=== PATIENT | female | born 1940 | race Caucasian/White ===

== ENCOUNTER 2021-02-01 16:29 | Emergency (ER) | payer MEDICARE, BC, SELFPAY ==
--- NOTE | ~2021-02-01 | CT_ITS ---
EXAMINATION: CT brain wo con INDICATION: Head injury COMPARISON: None TECHNIQUE: Standard unenhanced head CT. The dose-length product (DLP) was 605.33 mGy-cm. The mA was a djusted according to patient size. Iterative reconstruction technique was employed. FINDINGS: There is left periorbital soft tissue swelling. There is no acute intraparenchymal hemorrha ge. No evidence of mass lesion. No evidence of acute infarction. There is mild periventricular and osman bcortical hypodensity probably related to small vessel ischemic disease. There is mild prominence of the sulci and ventricles related to cerebral atrophy. Intracranial calcified cerebral atherosclerosis is noted. There are no extra-axial collections. There is no mass effect or midline shift. Changes in the globes are likely from ocular lens surgery. There is mild mucosal thickening of the paranasal si nuses. IMPRESSION: 1. Left periorbital soft tissue hematoma without acute intracranial abnormality. 2. Age related findings. Reviewed, dictated and finalized at location A. IMPRESSION: 1. Left periorbital soft tissue hematoma without acute intracranial abnormality . 2. Age related findings.
--- NOTE | ~2021-02-01 | CT_ITS ---
EXAMINATION: 1. CT facial & cervical spine wo DATE: 02/01/2021 17:02 INDICATION: Fall with deformity and bruising at the left orbit and cheek bone. TECHNIQUE: 1. Computed tomography (CT) of the maxillofacial region and of the cervical spine were performed with out intravenous contrast. Sagittal and coronal reconstructions of both regions were obtained. Automat ed exposure control and iterative reconstruction technique were employed. The dose-length product was 327.84 mGy-cm. COMPARISON: Neck CT dated 09/29/2014 FINDINGS: Maxillofacial CT: Large left cerebral scalp hematoma. Globes appear intact with changes of bilateral intraocular lens r eplacement. No post septal inflammatory stranding. No maxillofacial fractures. Specifically the pineda of the orbits, paranasal sinuses, nasal bones, the zygomatic arches, mandible and pterygoid plates a re intact. Temporomandibular joints are normal alignment with mild osteoarthritis. Leftward bowing of the nasal septum which parallels the contours of the turbinates. Mild mucosal thickening in the bila teral ethmoid sinuses, left greater than right. Visualized mastoid air cells and middle ear cavities are clear. Intracranial calcified cerebral atherosclerosis is noted at the carotid siphons. Cervical spine CT: Alignment is normal. Vertebral body heights are normal. No fractures. Moderate disc height loss at C5 -C6, C6-C7, T2-T3 and C3-4. Mild disc height loss at C4-C5 and C7-T1. There are hemangiomas at the T2 and T3 vertebral bodies. Posterior disc osteophyte complex at C5-C6 resulting in mild central canal stenosis at this level. Bilateral multilevel moderate to severe cervical facet osteoarthritis and mil d to moderate upper and moderate to severe lower cervical uncovertebral osteoarthritis. This contribu earl to mild to moderate neural foraminal stenosis at multiple levels on both the left and right. Cerv ical soft tissues are unremarkable. Visualized airway and apices of the lungs are clear. IMPRESSION: 1. Left supraorbital scalp hematoma. No maxillofacial fractures. 2. Mild to moderate cervical spondylosis. No acute osseous abnormality. Reviewed, dictated and finalized at location A.
--- NOTE | ~2021-02-01 | XR_ITS ---
EXAMINATION: XR hand LT min 3V INDICATION: Left hand pain TECHNIQUE: Three views of the left hand are obtained. COMPARISON: 06/04/2013 FINDINGS: The bones are osteopenic which limits the sensitivity for fracture however none is seen. Th ere is severe osteoarthritis at the fifth proximal interphalangeal joint with interval worsening sinc e the prior examination. Mild to moderate osteoarthritis is seen at the remainder of the interphalang eal joints. The soft tissues are unremarkable. IMPRESSION: 1. Osteoarthritis without acute osseous abnormality identified, sensitivity limited by osteopenia. Reviewed, dictated and finalized at location A. IMPRESSION: 1. Osteoarthritis without acute osseous abnormality identified, sensitivity [place] ited by osteopenia.
[2021-02-01 16:31] VITALS: BP 164/60; PULSE 91; RESP 18; TEMP 36.2; O2SAT 98
--- NOTE | 2021-02-01 16:38 | PC.NURSE ---
Per EDP Jatin verbal order for CT head, neck, and facial bones.
--- NOTE | 2021-02-01 18:00 | ED.FALL ---
HPI - Fall General Chief Complaint: Fall Stated Complaint: fall, head injury Time Seen by Provider: 02/01/21 17:53 Source: patient and RN notes reviewed Mode of arrival: ambulatory Limitations: no limitations History of Present Illness HPI Narrative: Patient is 80-year-old female who tripped and fell today while ambulating described as a mechanical fall fell forward striking the face was assisted by bystanders and brought into the ER for evaluation she presents with contusion over the left eye and left cheek. Patient also notes some tenderness over the dorsal surface of the left hand. She denies any syncope loss of consciousness or other complaints presents nondistressed. Related Data Home Medications Medication Instructions Recorded Confirmed cetirizine 10 mg capsule 10 mg PO DAILY PRN 10/26/20 10/26/20 citalopram 40 mg tablet 20 mg PO DAILY 10/26/20 10/26/20 empagliflozin 25 mg tablet 25 mg PO DAILY 10/26/20 10/26/20 glimepiride 4 mg tablet 4 mg PO QAM 10/26/20 10/26/20 losartan 100 mg tablet 100 mg PO DAILY 10/26/20 10/26/20 metformin 500 mg tablet 500 mg PO BID 10/26/20 10/26/20 pravastatin 20 mg tablet 20 mg PO DAILY 10/26/20 10/26/20 Allergies Allergy/AdvReac Type Severity Reaction Status Date / Time No Known Allergies Allergy Unverified 10/21/17 05:00 Review of Systems Review of Systems: All systems reviewed & are unremarkable except as noted in HPI and below PMFSH Family History Family History (Updated 10/26/20 @ 13:59 by Paola Escobar) Father Heart disease Mother Hypertension Sibling Hypertension Acute myocardial infarction Other Depression Thyroid disorder Social History Social History Smoking status: Never smoker Alcohol intake: current Drinks per week: 1 Alcohol use details: occasional use Substance use: never Exam Narrative: GENERAL: Well-appearing, well-nourished, and in no acute distress. HEAD: Normocephalic, contusion above the left eye involving the brow as well as the left cheek. EYES: PERRLA and EOMI. ENT: Nares clear, no rhinorrhea or epistaxis. Mucous membranes moist. NECK: Supple. No adenopathy or masses. CHEST: Clear to auscultation. No respiratory distress. No wheezes rales or rhonchi HEART: Regular rate and rhythm. No murmur heard. EXTREMITIES: Normal range of motion. No edema. No midline cervical thoracic or lumbar tenderness. Tenderness over the left hand dorsal surface SKIN: Warm, dry, no rash. NEURO: No focal deficits. Alert and oriented x3. Cranial nerves II through XII grossly intact PSYCH: Normal mood and affect. Course Course Emergency Course: Patient evaluated negative imaging she was made aware of case findings treatment plan diagnosis she is felt appropriate for outpatient reevaluation given reasons to return Vital Signs Vital signs: Vital Signs Temperature 97.1 F L 02/01/21 16:31 Pulse Rate 91 02/01/21 16:31 Respiratory Rate 18 02/01/21 16:31 Blood Pressure 164/60 H 02/01/21 16:31 Pulse Oximetry 98 02/01/21 16:31 Temperature 97.1 F L 02/01/21 16:31 Pulse Rate 91 02/01/21 16:31 Respiratory Rate 18 02/01/21 16:31 Blood Pressure 164/60 H 02/01/21 16:31 Pulse Oximetry 98 02/01/21 16:31 MDM - Fall MDM Narrative Medical decision making narrative: Patient evaluated for injuries related to a ground-level fall she feels comfortable to go home her family will be they are waiting for her she was evaluated hemodynamically stable ABCs and vital signs intact provided with reasons to return Discharge Plan Discharge Clinical Impression: Contusion of face, Contusion of finger of left hand Patient Disposition: Home, Self-Care Condition: Stable Instructions: Antibiotic Form, Contusion in Adults (ED), Head Injury (ED) Additional Instructions: Follow up with your primary care doctor in 5-7 days for re-evaluation. Go to ER for worsening sangeetha
== END 2021-02-01 18:20 | disposition home or self-care (01) ==
PROVIDERS: Emergency Provider Emergency Medicine; PCP Family Medicine
DX: S00.83XA Contusion of other part of head, initial encounter (principal); S00.12XA Contusion of left eyelid and periocular area, initial encounter; S60.00XA Contusion of unspecified finger without damage to nail, initial encounter; M47.812 Spondylosis without myelopathy or radiculopathy, cervical region; Z79.84 Long term (current) use of oral hypoglycemic drugs; M85.842 Other specified disorders of bone density and structure, left hand; W01.0XXA Fall on same level from slipping, tripping and stumbling without subsequent striking against object, initial encounter
CPT/HCPCS: 70450; 70486; 72125; 73130; 99284

== ENCOUNTER 2021-05-30 18:39 | Inpatient (IN) | payer MEDICARE, BC, SELFPAY ==
--- NOTE | ~2021-05-30 | CT_ITS ---
EXAMINATION: CT brain wo con DATE: 05/30/2021 19:35 INDICATION: Head injury post fall with head pain TECHNIQUE: Computed tomography (CT) of the head was performed without intravenous contrast. Sagittal and coronal reconstructions were performed. The mA was adjusted according to patient size. Iterative reconstruction technique was employed. The dose-length product was 605.33 mGy-cm. COMPARISON: head CT dated 02/01/2021 FINDINGS: No fracture. No acute intracranial hemorrhage, acute infarction or abnormal extra axial fluid collect ion. There is mild scattered white matter hypoattenuation consistent with chronic small vessel ischem ic disease. Symmetric prominence of the sulci consistent with mild age-appropriate diffuse cerebral v olume loss. Ventricles are normal and symmetric. No mass/mass effect. Changes of bilateral intraocul ar lens replacement. The orbits, paranasal sinuses and mastoid air cells are normal. IMPRESSION: 1. No fracture or acute intracranial process. 2. Age-related changes including mild diffuse volume loss and mild scattered white matter hypoattenua tion consistent with chronic small vessel ischemic disease. Reviewed, dictated and finalized at location A. 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 No fracture or acute intracranial process. 2. Age-related changes including mild diffuse volume loss and mild scattered wh ite matter hypoattenuation consistent with chronic small vessel ischemic diseas e.
--- NOTE | ~2021-05-30 | XR_ITS ---
EXAMINATION: XR chest 1V DATE: 05/30/2021 19:29 INDICATION: Fall with right hip pain and head injury TECHNIQUE: frontal view of the chest was obtained. COMPARISON: None FINDINGS: Skinfolds project over the bilateral apices of the lungs. No focal airspace opacities, pulmonary isis a, pleural effusion or pneumothorax. The cardiomediastinal silhouette is normal. Mild levocurvature a t the thoracolumbar junction with moderate to severe thoracolumbar spondylosis. IMPRESSION: 1. No acute cardiopulmonary disease. Reviewed, dictated and finalized at location A. PAINTER
--- NOTE | ~2021-05-30 | XR_ITS ---
XR hip RT min 2V DATE: 05/31/2021 13:18 INDICATION: Right bipolar hip replacement TECHNIQUE: AP and lateral postoperative views COMPARISON: May 30, 2021 right hip FINDINGS: There is resection of the right femoral head and neck and placement of a bipolar hip prosth esis which appears normally seated in the right acetabular fossa. There is mild expected postoperative subcutaneous emphysema of the proximal thigh IMPRESSION: Right bipolar hip prosthesis replacement for right femoral neck fracture Reviewed, dictated and finalized at location B. K LEATHER BUFFER IMPRESSION: Right bipolar hip prosthesis replacement for right femoral neck fra cture
--- NOTE | ~2021-05-30 | CT_ITS ---
EXAMINATION: CT cervical spine wo con DATE: 05/30/2021 19:35 INDICATION: Fall with head injury TECHNIQUE: Computed tomography (CT) of the cervical spine was performed without intravenous contrast. Automated exposure control and iterative reconstruction technique were employed. The dose-length pro duct was 271.82 mGy-cm. COMPARISON: None FINDINGS: 2 mm anterolisthesis C7 on T1 and 1 mm anterolisthesis C4 on C5 and T2 and T3. Vertebral body heights are normal. No fractures. Moderate disc height loss with severe bilateral uncovertebral osteoarthrit is at C6-C7, C7-T1. Additional moderate disc height loss at T2-T3 and T3-T4. Mild disc height loss at C5-C6 and T1-T2. Small disc protrusions at C3-C4 and C4-C5 and posterior disc osteophyte complex at C5-C6 resulting in mild central canal stenosis at these levels. Severe bilateral multilevel cervical facet osteoarthritis. Along the uncovertebral osteoarthritis this contributes to moderate neural fora janna stenosis on the left at C4-C5 and mild neural foraminal stenosis at the majority of the remaini ng cervical neural foramina. Small amount of atherosclerotic calcification is at the bilateral caroti d bulbs. Cervical soft tissues are unremarkable. Mild biapical pleural-parenchymal scarring. IMPRESSION: 1. Moderate cervical spondylosis. No acute osseous abnormality. Reviewed, dictated and finalized at location A. WARE PACKAGER
--- NOTE | ~2021-05-30 | XR_ITS ---
EXAMINATION: XR hip RT 2V w AP pelvis DATE: 05/30/2021 19:28 INDICATION: Right hip pain post fall TECHNIQUE: Anteroposterior view of the pelvis and anteroposterior and cross-table lateral views of th e right hip were obtained. COMPARISON: None. FINDINGS: Transcervical fracture of the proximal right femur with varus angulation, 1.5 cm proximal migration a nd external rotation. Right femoral head remains normally centered at the acetabulum. No other fractu res identified. Mild bilateral hip osteoarthritis. Severe lumbar spondylosis. IMPRESSION: 1. Displaced transcervical fracture of the proximal right femur. Reviewed, dictated and finalized at location A. TH TECHNICIAN HEARING
[2021-05-30 18:41] VITALS: BP 176/75; PULSE 76; RESP 20; TEMP 37.2; O2SAT 100
--- NOTE | 2021-05-30 19:11 | ECG_ITS ---
Measurements Intervals [place] Rate: 80 P: 53 IA: 182 QRS: 37 QRSD: 81 T: 39 QT: 383 QTc: 444 Interpretive Statements SINUS RHYTHM BASELINE ARTIFACT- I, II, III, AVR, AVL, AVF, V1-V6 NORMAL ECG Electronically Signed On 05-31-2021 6:17:51 [employer] RESEARCH ASSOCIATE by Sebas Benitez D.O.
--- NOTE | 2021-05-30 19:27 | PC.NURSE ---
Handoff received from Keiry MCRAE. Patient currently at CT.
[2021-05-30] MEDS: LACTATED RINGERS 1,000 ML 150 ML IV CONT (19:50)
[2021-05-30] MEDS: ONDANSETRON INJ 4 MG/2 ML VIAL IV PUSH (19:53)
[2021-05-30] MEDS: MORPHINE SULFATE (*CRX) 4 MG/ML INJ IV PUSH (19:53)
[2021-05-30 19:55] VITALS: BP 169/64; PULSE 79; RESP 16; O2SAT 99
[2021-05-30 20:11] LABS: Basophils Absolute Auto 0.1 K/mm3 (0.0-0.1); Basophils Percent Auto 0.8 % (0.2-1.2); Eosinophils Absolute Auto 0.1 K/mm3 (0-0.3); Eosinophils Percent Auto 0.9 % (0-4.4); Hematocrit 41.6 % (37.0-47.0); Hemoglobin 13.8 g/dL (12.0-15.0); Immature Granulocyte Absolute 0.06 K/mm3 (0.00-0.031); Immature Granulocyte Percent A 0.8 % (0-0.5); Lymphocytes Absolute Auto 1.13 K/mm3 (0.9-3.2); Lymphocytes Percent Auto 14.2 % (18.3-44.2); Mean Corpuscular HGB Conc 33.2 g/dl (32-36); Mean Corpuscular Hemoglobin 28.9 pg (26-34); Mean Platelet Volume 9.1 fl (7.4-10.4); Monocytes Absolute Auto 0.6 K/mm3 (0.1-0.6); Monocytes Percent Auto 7.3 % (2.6-8.5); Neutrophils Absolute Auto 6.1 K/mm3 (1.3-6.7); Platelet Count Result 243 k/mm3 (150-375); Red Blood Count 4.78 M/mm3 (4.2-5.4)
--- NOTE | 2021-05-30 20:15 | ED.GENADULT ---
HPI - General Adult General Chief complaint: Extremity Injury, Lower Stated complaint: fall with hip injury Time Seen by Provider: 05/30/21 19:03 Source: patient, EMS and RN notes reviewed Mode of arrival: ambulatory Limitations: no limitations History of Present Illness HPI narrative: Patient is an 81-year-old female who presents to emergency department for evaluation of right hip pain patient notes aching pain worse with activity and movement she was reaching for an object and lost her balance falling to the side she notes history of prior fall she did hit the head but denies any headache notes slight right-sided neck pain she notes the majority the pain is localized to the right hip worse with any activity or manipulation on arrival she is externally rotated. Related Data Home Medications Medication Instructions Recorded Confirmed cetirizine 10 mg capsule 10 mg PO DAILY PRN 10/26/20 10/26/20 citalopram 40 mg tablet 20 mg PO DAILY 10/26/20 10/26/20 empagliflozin 25 mg tablet 25 mg PO DAILY 10/26/20 10/26/20 glimepiride 4 mg tablet 4 mg PO QAM 10/26/20 10/26/20 losartan 100 mg tablet 100 mg PO DAILY 10/26/20 10/26/20 metformin 500 mg tablet 500 mg PO BID 10/26/20 10/26/20 pravastatin 20 mg tablet 20 mg PO DAILY 10/26/20 10/26/20 Allergies Allergy/AdvReac Type Severity Reaction Status Date / Time No Known Allergies Allergy Verified 05/30/21 18:52 Review of Systems Review of Systems: All systems reviewed & are unremarkable except as noted in HPI and below PMFSH Past Medical History Medical History (Updated 05/30/21 @ 20:19 by Marlon Renner PA-C) Diabetes mellitus Hypertension Family History Family History (Updated 10/26/20 @ 13:59 by Paola Escobar) Father Heart disease Mother Hypertension Sibling Hypertension Acute myocardial infarction Other Depression Thyroid disorder Social History Social History Smoking status: Never smoker Alcohol intake: current Drinks per week: 1 Alcohol use details: occasional use Substance use: never Exam Narrative: GENERAL: Well-appearing, well-nourished, uncomfortable appearing, and in no acute distress. HEAD: Normocephalic, atraumatic. EYES: PERRLA and EOMI. ENT: Nares clear, no rhinorrhea or epistaxis. Mucous membranes moist. NECK: Supple. No adenopathy or masses. CHEST: Clear to auscultation. No respiratory distress. No wheezes rales or rhonchi HEART: Regular rate and rhythm. No murmur heard. Normal peripheral pulses. ABDOMEN: Soft, nontender, nondistended EXTREMITIES: Tenderness of the right hip with external rotation. No midline cervical thoracic or lumbar tenderness SKIN: Warm, dry, no rash. NEURO: No focal deficits. Alert and oriented x3. Neurovascularly intact. Cranial nerves II through XII grossly intact PSYCH: Normal mood and affect. Course Course Emergency Course: Patient presented with right hip injury found to have fracture will be placed in hospital with plan surgery for tomorrow n.p.o. at midnight with pain management hydration she will be admitted to the hospitalist service with orthopedic surgery as a consult discussion was made with the service Consultations Consultation #1: Discussed case with Dr. Silveira who has agreed to accept the patient with plan surgery for tomorrow would like the patient placed in hospital to the hospitalist service Date: 05/30/21 Time: 20:18 Vital Signs Vital signs: Vital Signs Temperature 98.9 F 05/30/21 18:41 Pulse Rate 76 05/30/21 18:41 Respiratory Rate 20 05/30/21 18:41 Blood Pressure 176/75 H 05/30/21 18:41 Pulse Oximetry 100 05/30/21 18:41 Temperature 98.9 F 05/30/21 18:41 Pulse Rate 79 05/30/21 19:55 Respiratory Rate 16 05/30/21 19:55 Blood Pressure 169/64 H 05/30/21 19:55 Pulse Oximetry 99 05/30/21 19:55 Medical Decision Making MDM Narrative Medical decision making narrative: Patients in
[2021-05-30 20:20] LABS: INR 0.9; Prothrombin Time 12.1 Seconds (11.1-14.7)
[2021-05-30 20:21] LABS: Partial Thromboplastin Time 29.4 SECONDS (22.3-36.8)
[2021-05-30 20:22] LABS: Alanine Aminotransferase 23 U/L (4-35); Albumin Level 4.5 g/dL (3.5-5.1); Alkaline Phosphatase 91 U/L (38-126); Anion Gap 8 mmol/L (8-16); Aspartate Amino Transferase 26 U/L (14-36); Bilirubin,Total 0.7 mg/dL (0.2-1.3); Blood Urea Nitrogen 14 mg/dL (7-17); Calcium 9.1 mg/dL (8.4-10.2); Carbon Dioxide 19 mmol/L (22-30); Chloride 110 mmol/L (98-107); Estimated CRCL calculation 52 ml/min; Estimated Glomerular Filt Rate > 60; Glucose 136 mg/dL (65-110); Sodium 137 mmol/L (137-145)
--- NOTE | 2021-05-30 21:13 | PM.IMHP ---
H&P: HPI History of Present Illness Date/Time: 05/30/21 21:13 Chief Complaint: Fall, right hip pain Narrative: 81-year-old female with past medical history of diabetes, hypertension and hyperlipidemia who presented to the ER after having a fall. She reports that she was reaching for something on her nightstand from a standing position when she lost her balance and fell. She hit the back of her head on her way down. She denies having any loss of consciousness. After the fall she tried to stand up but felt as if her leg was initially numb. She had severe pain in her hip when she tried to stand. Her leg no longer feels numbness she has movement of the lower extremity but the extremities externally rotated and shortened. She denies any headache or visual changes. However when she arrived on the medical floor she did have an episode of nausea and vomiting. She reports feeling nauseated any time she lifts her head from the pillow. She denies any dizziness or worsening of the nausea of with twisting her head in either direction. She denies any double vision. She denies any chest pain or symptoms preceding the fall. She did not have any lightheadedness or syncope. She was euglycemic on presentation to the ER. She reports her last hemoglobin A1c was good for her age. Review of Systems Review of Systems: 12 systems were reviewed with pertinent positives and negatives per HPI. Except as documented in the HPI, all other systems were reviewed and are negative. [facility] Past Medical History Medical History (Updated 05/31/21 @ 01:03 by Tracy Barber DO) Allergic rhinitis Basal cell carcinoma (BCC) of [place] Diabetes mellitus GERD (gastroesophageal reflux disease) Hypertension Surgical History Surgical History (Updated 05/31/21 @ 00:54 by Tracy Barber DO) History of appendectomy History of lumpectomy of left breast With cystic pathology Status post cataract extraction of both eyes with insertion of intraocular lens Family History Family History (Updated 05/31/21 @ 00:56 by Tracy Barber DO) Father , 93 years old CHF (congestive heart failure) Mother , 98 years old Hypertension Sibling , Age greater than 70 Hypertension Aortic aneurysm and dissection Other Depression Thyroid disorder Social History Social History (Updated 05/31/21 @ 00:57 by Tracy Barber DO) Social History: Patient has been since 2019. She lives with her 240 8-year-old daughters who are selectively mute. She reports that her daughters are very intelligent but do not speak. She would wish her daughters to be her surrogate decision makers if she was unable to make her own decisions. She reports her daughters communicate via writing. 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 She is a lifelong nonsmoker. She does drink alcohol on occasion in moderation. She had a glass of wine on the night of the . She is independent activities of daily living. Code status: Full code. She has advanced directives in place. Primary care physician: Dr. Miracle Baldwin Smoking status: Never smoker Alcohol intake: never Drinks per week: 1 Alcohol use details: occasional use Substance use: never Spiritual care concerns: No Meds Home Medications and Allergies Home Medications Medication Instructions Recorded Confirmed Type cetirizine 10 mg capsule 10 mg PO DAILY 10/26/20 05/30/21 History citalopram 40 mg tablet 40 mg PO DAILY 10/26/20 05/30/21 History empagliflozin 25 mg tablet 25 mg PO DAILY 10/26/20 05/30/21 History glimepiride 4 mg tablet 4 mg PO BID 10/26/20 05/30/21 History losartan 100 mg tablet 100 mg PO DAILY 10/26/20 05/30/21 History metformin 500 mg tablet 500 mg PO BID 10/26/20 05/30/21 History pravastatin 20 mg tablet 20 mg PO DAILY 10/26/20 05/30/21 History aspirin [Adult Low Dose Aspirin] 81 mg PO DAILY 05/30/21 05/30/21 History fluticasone propionate 2 spray INTRANASAL
[2021-05-30 21:15] VITALS: BP 172/75; PULSE 80; RESP 18; O2SAT 99
[2021-05-30] MEDS: FAMOTIDINE 20 MG/2 ML VIAL IV PUSH (21:30)
--- NOTE | 2021-05-30 21:58 | ADMGEN ---
This patient, Rosalinda Thornton, was admitted to Medical Room 247-. Patient/family oriented to hospital policies and general routines including ID bracelet, bed and alarms, visiting hours, pain management, procedures, bathroom and other care routines, personal items, smoking policy, room service/diet, and visiting hours. Information on how to activate the Rapid Response Team has been discussed. Patient/Family are encouraged to report perceived risks to care and to ask questions if they do not understand what they are told or what they should do.
[2021-05-30 23:05] VITALS: BMI 26.3
[2021-05-30 23:07] VITALS: BP 147/55; PULSE 84; RESP 16; TEMP 36.8; O2SAT 100
[2021-05-30] MEDS: LACTATED RINGERS 1,000 ML 75 ML IV CONT (23:45)
[2021-05-31] VITALS (20 sets, daily range): BP systolic 118–175; BP diastolic 44–78; PULSE 66–93; RESP 12–18; TEMP 36.2–36.7; O2SAT 92–100
[2021-05-31] MEDS: MORPHINE SULFATE (*CRX) 2 MG/ML INJ IV PUSH (02:56)
--- NOTE | 2021-05-31 07:14 | PM.CNOR ---
Assessment and Plan Assessment and plan (1) Subcapital fracture of neck of right femur: Qualifiers: Encounter type: initial encounter Fracture type: closed Qualified Code(s): S72.011A - Unspecified intracapsular fracture of right femur, initial encounter for closed fracture Code(s): S72.011A - Unspecified intracapsular fracture of right femur, initial encounter for closed fracture Status: Acute Assessment and Plan: 81-year-old female with a displaced right femoral neck fracture. This will need to be stabilized surgically. Plan on bipolar replacement today. Risks and potential complications were discussed in detail and questions answered. History of Present Illness HPI Consult date: 05/31/21 Consult reason: fracture Chief complaint: Right Hip Fracture Narrative: 81-year-old female with a displaced right femoral neck fracture. She had a fall yesterday. No other injury with this occurrence. Lives at home with her two daughters who are functionally mute. They are 48 years old. Is a . Review of Systems Constitutional: Constitutional: Denies chills and Denies fever(s) Eyes: Eyes: Reports no additional eye complaints ENT: Reports system reviewed and no additional complaints, except as documented Cardiovascular: Cardiovascular: Denies chest pain and Denies dyspnea on exertion Respiratory: Respiratory: Reports no additional respiratory complaints and Denies dyspnea on exertion Gastrointestinal: Gastrointestinal: Denies abdominal pain and Denies bloating PMFSH Past Medical History Medical History (Updated 05/31/21 @ 07:19 by Jose Guadalupe Silveira MD) Allergic rhinitis Basal cell carcinoma (BCC) of ala nasi Diabetes mellitus GERD (gastroesophageal reflux disease) Hypertension Subcapital fracture of neck of right femur Surgical History Surgical History History of appendectomy History of lumpectomy of left breast With cystic pathology Status post cataract extraction of both eyes with insertion of intraocular lens Family History Family History Father , 93 years old CHF (congestive heart failure) Mother , 98 years old Hypertension Sibling , Age greater than 70 Hypertension Aortic aneurysm and dissection Other Depression Thyroid disorder Social History Social History Social History: Patient has been since 2019. She lives with her 240 8-year-old daughters who are selectively mute. She reports that her daughters are very intelligent but do not speak. She would wish her daughters to be her surrogate decision makers if she was unable to make her own decisions. She reports her daughters communicate via writing. 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 She is a lifelong nonsmoker. She does drink alcohol on occasion in moderation. She had a glass of wine on the night of the . She is independent activities of daily living. Code status: Full code. She has advanced directives in place. Primary care physician: Dr. Miracle Baldwin Smoking status: Never smoker Alcohol intake: never Drinks per week: 1 Alcohol use details: occasional use Substance use: never Spiritual care concerns: No Meds Home Medications and Allergies Home Medications Medication Instructions Recorded Confirmed Type cetirizine 10 mg capsule 10 mg PO DAILY 10/26/20 05/30/21 History citalopram 40 mg tablet 40 mg PO DAILY 10/26/20 05/30/21 History empagliflozin 25 mg tablet 25 mg PO DAILY 10/26/20 05/30/21 History glimepiride 4 mg tablet 4 mg PO BID 10/26/20 05/30/21 History losartan 100 mg tablet 100 mg PO DAILY 10/26/20 05/30/21 History metformin 500 mg tablet 500 mg PO BID 10/26/20 05/30/21 History pravastatin 20 mg tablet 20 mg PO DAILY 10/26/20 05/30/21 History aspirin [Adult Low Dose
[2021-05-31] MEDS: FAMOTIDINE 20 MG/2 ML VIAL IV PUSH (07:55)
--- NOTE | 2021-05-31 07:56 | WPDANESEPPF ---
Anes - Initial Pre Proc Eval Procedure: Operation Date: 05/31/21 10:30 Proposed Procedures p Right Bipolar Hip Replacement - Jose Guadalupe Silveira MD Date/Time: 05/31/21 07:56 Surgeon: Tracy Barber DO Pre Op Diagnosis: Right Hip Fracture Patient Data Age: 81 Gender: F Height: 1.68 m Weight: 74 kg Last Vital Signs Temp 36.6 C 05/31/21 04:56 Pulse 77 05/31/21 04:56 Resp 18 05/31/21 04:56 BP 138/55 L 05/31/21 04:56 Pulse Ox 98 05/31/21 04:56 Allergies Allergy/AdvReac Type Severity Reaction Status Date / Time No Known Allergies Allergy Verified 05/30/21 18:52 Home Medications Medication Instructions Recorded Confirmed Type cetirizine 10 mg capsule 10 mg PO DAILY 10/26/20 05/30/21 History citalopram 40 mg tablet 40 mg PO DAILY 10/26/20 05/30/21 History empagliflozin 25 mg tablet 25 mg PO DAILY 10/26/20 05/30/21 History glimepiride 4 mg tablet 4 mg PO BID 10/26/20 05/30/21 History losartan 100 mg tablet 100 mg PO DAILY 10/26/20 05/30/21 History metformin 500 mg tablet 500 mg PO BID 10/26/20 05/30/21 History pravastatin 20 mg tablet 20 mg PO DAILY 10/26/20 05/30/21 History aspirin [Adult Low Dose Aspirin] 81 mg PO DAILY 05/30/21 05/30/21 History fluticasone propionate 2 spray INTRANASAL DAILY 05/30/21 05/30/21 History keiteidh-ujzp-JP-calcium-mins [One 1 tablet PO DAILY 05/30/21 05/30/21 History Daily Women's] omeprazole 40 mg PO DAILY 05/30/21 05/30/21 History Laboratory Tests 05/30/21 05/30/21 05/30/21 20:04 20:04 20:04 WBC 8.0 K/mm3 K/mm3 (4.5-10.0) RBC 4.78 M/mm3 M/mm3 (4.2-5.4) Hgb 13.8 g/dL g/dL (12.0-15.0) Hct 41.6 % % (37.0-47.0) MCV 87.0 fl fl (80-100) MCH 28.9 pg pg (26-34) MCHC 33.2 g/dl g/dl (32-36) RDW 14.0 % % (11.5-14.5) Plt Count 243 k/mm3 k/mm3 (150-375) MPV 9.1 fl fl (7.4-10.4) Immature Gran % (Auto) 0.8 % H % (0-0.5) Neut % (Auto) 76.0 % H % (45.5-73.1) Lymph % (Auto) 14.2 % L % (18.3-44.2) [place] % (Auto) 7.3 % % (2.6-8.5) Eos % (Auto) 0.9 % % (0-4.4) Baso % (Auto) 0.8 % % (0.2-1.2) Lymph # (Auto) 1.13 K/mm3 K/mm3 (0.9-3.2) [place] # (Auto) 0.6 K/mm3 K/mm3 (0.1-0.6) Eos # (Auto) 0.1 K/mm3 K/mm3 (0-0.3) Baso # (Auto) 0.1 K/mm3 K/mm3 (0.0-0.1) Abs Immat Gran (auto) 0.06 K/mm3 H K/mm3 (0.00-0.031) Absolute Neuts (auto) 6.1 K/mm3 K/mm3 (1.3-6.7) Absolute Nucleated RBC 0.0 K/mm3 K/mm3 (0.0-0.012) Nucleated RBC % 0.0 % % (0.0-0.2) PT 12.1 Seconds Seconds (11.1-14.7) INR 0.9 APTT 29.4 SECONDS SECONDS (22.3-36.8) Sodium 137 mmol/L mmol/L (137-145) Potassium 4.0 mmol/L mmol/L (3.4-5.0) Chloride 110 mmol/L H mmol/L (98-107) Carbon Dioxide 19 mmol/L L mmol/L (22-30) Anion Gap 8 mmol/L mmol/L (8-16) BUN 14 mg/dL mg/dL (7-17) Creatinine 0.70 mg/dL mg/dL (0.7-1.0) Estim Creat Clear Calc 52 ml/min ml/min Estimated GFR > 60 (59 - ) Glucose 136 mg/dL H mg/dL (65-110) Calcium 9.1 mg/dL mg/dL (8.4-10.2) Total Bilirubin 0.7 mg/dL mg/dL (0.2-1.3) AST 26 U/L U/L (14-36) ALT 23 U/L U/L (4-35) Alkaline Phosphatase 91 U/L U/L (38-126) Total Protein 7.0 g/dL g/dL (6.3-8.2) Albumin 4.5 g/dL g/dL (3.5-5.1) Patient hx anesthesia problems: none Family hx anesthesia problems: none Results Review: All pre-operative results and documents have been reviewed as part of the pre-operative evaluation. [facility] Past Medical History Medical History (Updated 05/31/21 @ 07:59 by Ezequiel Prakash MD) Allergic rhinitis Basal cell carcinoma (BCC) of ala nasi Diabetes mellitus GERD (jerry
[2021-05-31 08:54] LABS: Glucose Point of Care 87 mg/dl (65-105)
--- NOTE | 2021-05-31 08:59 | PC.NURSE ---
To OR per bed, IV saline locked. Report given to CLEMENTINA Moreau.
--- NOTE | 2021-05-31 09:15 | PM.IMPN ---
Progress Note: A&P Assessment and Plan (1) Subcapital fracture of neck of right femur: Qualifiers: Encounter type: initial encounter Fracture type: closed Qualified Code(s): S72.011A - Unspecified intracapsular fracture of right femur, initial encounter for closed fracture Code(s): S72.011A - Unspecified intracapsular fracture of right femur, initial encounter for closed fracture Status: Acute Assessment and Plan: X-ray Hip: Displaced transcervical fracture of the proximal right femur Ortho consulted thank you for your help NPO Surgical intervention scheduled for today Pain medication: morphine 2 mg IV push Q2H p.r.n. Zofran for antiemetics Orthopedics for postop care PT/OT DVT deferred to Ortho (2) Diabetes mellitus: Qualifiers: Diabetes mellitus complication status: without complication Diabetes mellitus longterm insulin use: without longterm use Diabetes mellitus type: type 2 Qualified Code(s): E11.9 - Type 2 diabetes mellitus without complications Code(s): E11.9 - Type 2 diabetes mellitus without complications Status: Inactive Assessment and Plan: Glucose is 136 today Continue home glimepiride 4mg, Metformin 500mg PO BID, Empagliflozin 25mg PO daily mild sliding scale insulin Accu-Cheks a.c. HS Trend glucose Adjust therapy as indicated (3) Vomiting: Qualifiers: Nausea presence: with nausea Vomiting type: unspecified Qualified Code(s): R11.2 - Nausea with vomiting, unspecified Code(s): R11.10 - Vomiting, unspecified Status: Acute Assessment and Plan: One episode of vomiting over night reports that her nausea becomes worse when she tries to lift her head from the pillow denies any vertigo mild nystagmus with looking to the right no increased symptoms with this maneuver Zofran as needed for nausea Neuro checks for 24 hours (4) Hyperlipidemia: Code(s): E78.5 - Hyperlipidemia, unspecified Status: Acute Assessment and Plan: Continue home prevastatin (5) Hypertension: Code(s): I10 - Essential (primary) hypertension Status: Acute Assessment and Plan: Current BP is 175/55 Seems a bit elevated, probably pain induced Continue home Losartan 100mg PO daily Trend BP Adjust therapy as indicated Time Spent With Patient Time with patient: Greater than 35 minutes Subjective Date/time seen: 05/31/21 0915 Interval history: Date/Time: 05/30/21 21:13 Narrative: 81-year-old female with past medical history of diabetes, hypertension and hyperlipidemia who presented to the ER after having a fall. She reports that she was reaching for something on her nightstand from a standing position when she lost her balance and fell. She hit the back of her head on her way down. She denies having any loss of consciousness. After the fall she tried to stand up but felt as if her leg was initially numb. She had severe pain in her hip when she tried to stand. Her leg no longer feels numbness she has movement of the lower extremity but the extremities externally rotated and shortened. She denies any headache or visual changes. However when she arrived on the medical floor she did have an episode of nausea and vomiting. She reports feeling nauseated any time she lifts her head from the pillow. She denies any dizziness or worsening of the nausea of with twisting her head in either direction. She denies any double vision. She denies any chest pain or symptoms preceding the fall. She did not have any lightheadedness or syncope. She was euglycemic on presentation to the ER. She reports her last hemoglobin A1c was good for her age. Date/Time 05/31/21 [id number] patient is lying in bed. Patient stated that her pain is okay when she is lying there not moving it as she was leg though her pain does shoot to a 9/10. Patient stated that she did not black out or have any l
--- NOTE | 2021-05-31 09:15 | P.PNIM_ITS ---
Progress Note: A&P Assessment and Plan (1) Subcapital fracture of neck of right femur: Qualifiers: Encounter type: initial encounter Fracture type: closed Qualified Code(s): S72.011A - Unspecified intracapsular fracture of right femur, initial encounter for closed fracture Code(s): S72.011A - Unspecified intracapsular fracture of right femur, initial encounter for closed fracture Status: Acute Assessment and Plan: * X-ray Hip: Displaced transcervical fracture of the proximal right femur * Ortho consulted thank you for your help * NPO * Surgical intervention scheduled for today * Pain medication: morphine 2 mg IV push Q2H p.r.n. * Zofran for antiemetics * Orthopedics for postop care * PT/OT * DVT deferred to Ortho (2) Diabetes mellitus: Qualifiers: Diabetes mellitus complication status: without complication Diabetes mellitus custodial insulin use: without rubber boots and shoes repairer use Diabetes mellitus type: type 2 Qualified Code(s): E11.9 - Type 2 diabetes mellitus without complications Code(s): E11.9 - Type 2 diabetes mellitus without complications Status: Inactive Assessment and Plan: * Glucose is 136 today * Continue home glimepiride 4mg, Metformin 500mg PO BID, Empagliflozin 25mg PO daily * mild sliding scale insulin * Accu-Cheks a.c. HS * Trend glucose * Adjust therapy as indicated (3) Vomiting: Qualifiers: Nausea presence: with nausea Vomiting type: unspecified Qualified Code(s): R11.2 - Nausea with vomiting, unspecified Code(s): R11.10 - Vomiting, unspecified Status: Acute Assessment and Plan: * One episode of vomiting over night * reports that her nausea becomes worse when she tries to lift her head from the pillow * denies any vertigo * mild nystagmus with looking to the right * no increased symptoms with this maneuver * Zofran as needed for nausea * Neuro checks for 24 hours (4) Hyperlipidemia: Code(s): E78.5 - Hyperlipidemia, unspecified Status: Acute Assessment and Plan: * Continue home prevastatin (5) Hypertension: Code(s): I10 - Essential (primary) hypertension Status: Acute Assessment and Plan: * Current BP is 175/55 * Seems a bit elevated, probably pain induced * Continue home Losartan 100mg PO daily * Trend BP * Adjust therapy as indicated Time Spent With Patient Time with patient: Greater than 35 minutes Subjective Date/time seen: 05/31/21 0915 Interval history: Date/Time: 05/30/21 21:13 Narrative: 81-year-old female with past medical history of diabetes, hypertension and hyperlipidemia who presented to the ER after having a fall. She reports that she was reaching for something on her nightstand from a standing position when she lost her balance and fell. She hit the back of her head on her way down. She denies having any loss of consciousness. After the fall she tried to stand up but felt as if her leg was initially numb. She had severe pain in her hip when she tried to stand. Her leg no longer feels numbness she has movement of the lower extremity but the extremities externally rotated and shortened. She denies any headache or visual changes. However when she arrived on the medical floor she did have an episode of nausea and vomiting. She reports feeling nauseated any time she lifts her head from the pillow. She denies any dizziness or worsening of the nausea of with twisting her head in either direction. She denies any double vision. She denies any chest pain
[2021-05-31 09:17] LABS: Glucose Point of Care 79 mg/dl (65-105)
[2021-05-31] MEDS: fentaNYL CITRATE INJ (*CRX) 100 MCG/2 ML VIAL 50 MCG IV PUSH ×2 (09:43→10:03)
--- NOTE | 2021-05-31 09:45 | WPDHPUPDATE1 ---
History and Physical Update Update Date/Time: 05/31/21 09:45 History and Physical has been reviewed, including an updated exam of the patient. There are NO changes in the patient's condition. Risks, benefits, and alternatives have been discussed and questions answered. Patient agrees to proceed with procedure.
[2021-05-31 10:43] LABS: Glucose Point of Care 71 mg/dl (65-105)
[2021-05-31] MEDS: ceFAZolin 2 GM/D5W 50 ML 2 GM/50 ML BAG IVPB ×2 (10:51→17:07)
[2021-05-31] MEDS: ceFAZolin SODIUM 1 GM VIAL IV PUSH (12:22)
[2021-05-31] MEDS: LACTATED RINGERS 1,000 ML 30 ML IV CONT (13:05)
--- NOTE | 2021-05-31 13:12 | W.PM.PROC2 ---
Procedure Note - Detailed Date of Procedure 05/31/21 Pre-op Diagnosis Right Hip Fracture Post-op Diagnosis same Procedure Performed Right bipolar hip replacement Surgeon Jose Guadalupe Silveira MD [facility] Anesthesia general Description of Procedure The patient was identified and proper site identified, then taken back to the operating room and transferred to the OR table. After general anesthetic induction and intubation, the patient was positioned in the left lateral decubitus position in the usual manner for a right hip procedure, and secured with padded hip positioner making sure the torso and extremities were properly padded. The right lower extremity was prepped and draped in the usual sterile fashion. A curvilinear incision was made over the greater trochanter and sharp dissection carried down through the subcutaneous tissue to the gluteus fascia and IT band which were divided in line with the incision. The anterior 1/2 of the abductors were sharply dissected off the greater trochanter developing the interval between the abductors and the capsule. The capsule was divided in an inverted-T fashion exposing the fracture site. A neck cut was made about one fingerbreadth above the level of the lesser trochanter. Head fragment was removed and the acetabulum cleared of debris. The acetabulum was sized to 47 mm. The proximal femur was prepared for the size 13 Press-Fit. Trial reduction was undertaken and the hip was noted to be stable through range of motion. The real size 13 fracture stem was then inserted. Through trialing it was noted that a 28+ 0 head with 47 cup configuration gave synagogue of leg lengths with excellent stability. The neck of the femoral component was cleaned and dried and the real components in those sizes were attached to the femoral stem. After final thorough lavage of the joint, the hip was again reduced. The capsule and charles-incisional tissues were infiltrated with 60 milliliters of the arthroplasty solution. Surgicel powder was used both the deep to and superficial to the IT band. The capsule was repaired with #2 Vicryl suture. The abductors were repaired to the greater trochanter with #5 Ethibond suture passed through a bony bridge. The deep fascia was reapproximated with 0 looped PDS suture. Deeper layers of the subcu reapproximated with 0 looped PDS. 2-0 Quill and tissue adhesive were used for the skin, and a sterile dressing was applied. Procedure was well tolerated and there were no known intraoperative complications. Estimated Blood Loss 200 Drains No Packing No Pathology yes (Femoral head and neck) Complications No immediate complications Condition stable Disposition PACU
[2021-05-31] MEDS: fentaNYL CITRATE INJ (*CRX) 100 MCG/2 ML VIAL 25 MCG IV PUSH ×3 (13:17→14:00)
[2021-05-31 13:32] LABS: Glucose Point of Care 148 mg/dl (65-105)
--- NOTE | 2021-05-31 15:27 | SUR.PHASEI ---
fentanyl 25 mcg given at 1515
[2021-05-31] MEDS: PRAVASTATIN SODIUM 20 MG TABLET PO (15:37)
[2021-05-31] MEDS: PANTOPRAZOLE 40 MG TABLET PO (15:37)
[2021-05-31] MEDS: FLUTICASONE PROPIONATE 0.05% NA SPR 16 GM BTL (*BKC) 2 SPRAY NASAL (15:38)
[2021-05-31] MEDS: LOSARTAN POTASSIUM 100 MG TABLET PO (15:38)
[2021-05-31] MEDS: EMPAGLIFLOZIN 25 MG TABLET PO (15:38)
--- NOTE | 2021-05-31 15:40 | PC.NURSE ---
Returned from OR per bed. Report received from CLEMENTINA Jackson.
[2021-05-31] MEDS: metFORMIN HCL 500 MG TABLET PO (16:13)
[2021-05-31] MEDS: SODIUM CHLORIDE 0.9% IV 1,000 ML 125 ML IV CONT (16:13)
[2021-05-31] MEDS: SENNA/DOCUSATE SODIUM TABLET 2 TAB PO (16:13)
[2021-05-31] MEDS: GLIMEPIRIDE 2 MG TABLET 4 MG PO (16:13)
[2021-05-31 16:36] LABS: Glucose Point of Care 191 mg/dl (65-105)
[2021-05-31] MEDS: HYDROcodone/acetaminophen (*CRX) 5-325 MG TABLET 1 TAB PO (17:51)
[2021-05-31 20:15] LABS: Glucose Point of Care 129 mg/dl (65-105)
[2021-05-31] MEDS: FAMOTIDINE 20 MG TABLET PO (20:17)
[2021-05-31] MEDS: HYDROcodone/acetaminophen (*CRX) 5-325 MG TABLET 2 TAB PO (20:37)
[2021-06-01] MEDS: SODIUM CHLORIDE 0.9% IV 1,000 ML 125 ML IV CONT (00:16)
[2021-06-01] MEDS: ceFAZolin 2 GM/D5W 50 ML 2 GM/50 ML BAG IVPB ×2 (01:43→09:00)
[2021-06-01] MEDS: HYDROcodone/acetaminophen (*CRX) 5-325 MG TABLET 2 TAB PO ×3 (02:30→14:43)
[2021-06-01 04:25] VITALS: BP 116/46; PULSE 81; RESP 16; TEMP 36.6; O2SAT 93
[2021-06-01 05:54] LABS: Basophils Absolute Auto 0.1 K/mm3 (0.0-0.1); Basophils Percent Auto 0.5 % (0.2-1.2); Eosinophils Percent Auto 0.2 % (0-4.4); Hematocrit 32.9 % (37.0-47.0); Hemoglobin 10.6 g/dL (12.0-15.0); Immature Granulocyte Absolute 0.04 K/mm3 (0.00-0.031); Immature Granulocyte Percent A 0.4 % (0-0.5); Lymphocytes Absolute Auto 0.95 K/mm3 (0.9-3.2); Lymphocytes Percent Auto 9.4 % (18.3-44.2); Mean Corpuscular HGB Conc 32.2 g/dl (32-36); Mean Corpuscular Hemoglobin 28.5 pg (26-34); Mean Corpuscular Volume 88.4 fl (80-100); Mean Platelet Volume 9.4 fl (7.4-10.4); Monocytes Absolute Auto 1.3 K/mm3 (0.1-0.6); Monocytes Percent Auto 12.4 % (2.6-8.5); Neutrophils Absolute Auto 7.8 K/mm3 (1.3-6.7); Neutrophils Percent Auto 77.1 % (45.5-73.1); Platelet Count Result 198 k/mm3 (150-375); Red Blood Count 3.72 M/mm3 (4.2-5.4); Red Cell Distribution Width 14.2 % (11.5-14.5); White Blood Count 10.2 K/mm3 (4.5-10.0)
[2021-06-01 06:02] LABS: Alanine Aminotransferase 15 U/L (4-35); Albumin Level 3.3 g/dL (3.5-5.1); Alkaline Phosphatase 38 U/L (38-126); Anion Gap 5 mmol/L (8-16); Aspartate Amino Transferase 22 U/L (14-36); Bilirubin,Total 0.7 mg/dL (0.2-1.3); Blood Urea Nitrogen 19 mg/dL (7-17); Calcium 8.2 mg/dL (8.4-10.2); Carbon Dioxide 22 mmol/L (22-30); Chloride 110 mmol/L (98-107); Estimated CRCL calculation 52 ml/min; Estimated Glomerular Filt Rate > 60; Glucose 51 mg/dL (65-110); Magnesium 2.2 mg/dL (1.6-2.3); Potassium 3.6 mmol/L (3.4-5.0); Sodium 137 mmol/L (137-145)
[2021-06-01] MEDS: GLUCOSE ORAL GEL 15 GM OF GLUCSE IN 37.5 GM TUBE PO (06:21)
[2021-06-01 06:51] LABS: Glucose Point of Care 64 mg/dl (65-105)
[2021-06-01 07:22] LABS: Glucose Point of Care 110 mg/dl (65-105)
--- NOTE | 2021-06-01 07:38 | PM.PNORT ---
Progress Note: A&P Assessment and Plan (1) S/P hip replacement: Qualifiers: Laterality: right Qualified Code(s): Z96.641 - Presence of right artificial hip joint Code(s): Z96.649 - Presence of unspecified artificial hip joint Status: Resolved Assessment and Plan: surgery discussed with patient. Initiate therapy. Will likely need placement versus home health PT. Time Spent With Patient Time with patient: 15 - 25 minutes Subjective Subjective Date/Time Seen: 06/01/21 07:38 Post Op day: 1 Principal diagnosis: Status post right hip bipolar hemiarthroplasty Interval history: This document created with [id number] technology and is subject to roll edge machine operator irregularities. 81-year-old female postop day one right hip bipolar replacement. Uneventful overnight. Review of Systems Constitutional: Constitutional: Denies chills and Denies fever(s) Eyes: Eyes: Reports no additional eye complaints ENT: Reports system reviewed and no additional complaints, except as documented Cardiovascular: Cardiovascular: Denies chest pain and Denies dyspnea on exertion Respiratory: Respiratory: Reports no additional respiratory complaints and Denies dyspnea on exertion Gastrointestinal: Gastrointestinal: Denies abdominal pain and Denies bloating Exam Const: General: cooperative, no acute distress and alert Nutritional Appearance: other Orientation/consciousness: patient oriented x3 Limitations: no limitations HENMT: Head: normal to inspection Ears: hearing grossly normal bilaterally Face and sinus: face symmetric Mouth: Yes moist mucous membranes Teeth and gingiva: fair dentition Eyes: Alignment and Position: alignment normal and position normal Sclera: sclerae normal Neck: Neck: normal visual inspection and nontender Chest: Chest palpation & inspection: normal inspection of the chest Resp: Effort & Inspection: normal respiratory effort and able to speak in complete sentences GI: Inspection: other ( Nondistended, nontender) Skin: General skin exam: normal color Rashes: no rashes Neuro: General: patient oriented x3 Cognition (Neuro): normal cognition Speech: normal speech Gait exam (Neuro): Other gait observations present Extrem: General: normal to inspection and other Other: Exam of right hip wound shows that it is dry. Very little swelling and no real bruising noted about the incision. Grossly neurovascular status right lower extremity intact. Calves negative. Psych: Appearance: grossly normal Mental Status: mental status grossly normal Radiology Reports: Comments: XR hip RT min 2V DATE: 05/31/2021 13:18 INDICATION: Right bipolar hip replacement TECHNIQUE: AP and lateral postoperative views COMPARISON: May 30, 2021 right hip FINDINGS: There is resection of the right femoral head and neck and placement of a bipolar hip prosthesis which appears normally seated in the right acetabular fossa. There is mild expected postoperative subcutaneous emphysema of the proximal thigh IMPRESSION: Right bipolar hip prosthesis replacement for right femoral neck fracture Reviewed, dictated and finalized at location B. ULATION ANALYST Hand X-Ray 02/01/21 Hip X-Ray 05/31/21 Hip and Pelvis X-Ray 05/30/21 Objective Data Vital Signs Vital Signs: Vital Signs - 24 hr 05/31/21 09:14 05/31/21 13:05 05/31/21 13:20 Temperature 98.0 F 97.7 F Pulse Rate 66 89 93 Respiratory Rate 18 16 16 Blood Pressure 175/55 H 125/45 L 135/50 L Pulse Oximetry 99 99 100 05/31/21 13:35 05/31/21 13:50 05/31/21 14:05 Temperature Pulse Rate 87 84 84 Respiratory Rate 16 16 12 Blood Pressure 134/48 L 131/52 L 125/45 L Pulse Oximetry 100 100 100 05/31/21 14:20 05/31/21 14:35 05/31/21 14:50 Temperature Pulse Rate 84 84 84 Respiratory Rate 17 13 13 Blood
[2021-06-01 07:49] LABS: Glucose Point of Care 123 mg/dl (65-105)
[2021-06-01 08:30] VITALS: BP 121/81; PULSE 75
--- NOTE | 2021-06-01 08:30 | PM.IMPN ---
Progress Note: A&P Assessment and Plan (1) Subcapital fracture of neck of right femur: Qualifiers: Encounter type: initial encounter Fracture type: closed Qualified Code(s): S72.011A - Unspecified intracapsular fracture of right femur, initial encounter for closed fracture Code(s): S72.011A - Unspecified intracapsular fracture of right femur, initial encounter for closed fracture Status: Acute Assessment and Plan: POD 1 X-ray Hip: Displaced transcervical fracture of the proximal right femur Ortho consulted thank you for your help Diabetic Carb Consistent diet Surgical intervention performed 05/31/21 Pain medication: Tylenol 650 Q6hr PO PRN, [place] 1-2 tabs Q3-6Hr PRN Bowel prep: Mylanta PRN, Senna/Docusate 2 tab PO BID, Miralax PO QAM Antibiotics: Ancef 2gm Q8hr x 3 bags Zofran for antiemetics Orthopedics for postop care PT/OT DVT deferred to Ortho (2) Diabetes mellitus: Qualifiers: Diabetes mellitus complication status: without complication Diabetes mellitus meterman insulin use: without intermediate use Diabetes mellitus type: type 2 Qualified Code(s): E11.9 - Type 2 diabetes mellitus without complications Code(s): E11.9 - Type 2 diabetes mellitus without complications Status: Inactive Assessment and Plan: Glucose is 51 today, treated and repeat was 110 Continue home glimepiride 4mg, Metformin 500mg PO BID, Empagliflozin 25mg PO daily mild sliding scale insulin Accu-Cheks a.c. HS Trend glucose Adjust therapy as indicated (3) Vomiting: Qualifiers: Nausea presence: with nausea Vomiting type: unspecified Qualified Code(s): R11.2 - Nausea with vomiting, unspecified Code(s): R11.10 - Vomiting, unspecified Status: Acute Assessment and Plan: Seems to be resolved One episode of vomiting over night reports that her nausea becomes worse when she tries to lift her head from the pillow denies any vertigo mild nystagmus with looking to the right no increased symptoms with this maneuver Zofran as needed for nausea Neuro checks for 24 hours (4) Hyperlipidemia: Code(s): E78.5 - Hyperlipidemia, unspecified Status: Acute Assessment and Plan: Continue home pravastatin (5) Hypertension: Code(s): I10 - Essential (primary) hypertension Status: Acute Assessment and Plan: Current BP is 121/81 Seems a bit elevated, probably pain induced Continue home Losartan 100mg PO daily Trend BP Adjust therapy as indicated Time Spent With Patient Time with patient: Greater than 35 minutes Subjective Date/time seen: 06/01/21 08:30 Interval history: Date/Time: 05/30/21 21:13 Narrative: 81-year-old female with past medical history of diabetes, hypertension and hyperlipidemia who presented to the ER after having a fall. She reports that she was reaching for something on her nightstand from a standing position when she lost her balance and fell. She hit the back of her head on her way down. She denies having any loss of consciousness. After the fall she tried to stand up but felt as if her leg was initially numb. She had severe pain in her hip when she tried to stand. Her leg no longer feels numbness she has movement of the lower extremity but the extremities externally rotated and shortened. She denies any headache or visual changes. However when she arrived on the medical floor she did have an episode of nausea and vomiting. She reports feeling nauseated any time she lifts her head from the pillow. She denies any dizziness or worsening of the nausea of with twisting her head in either direction. She denies any double vision. She denies any chest pain or symptoms preceding the fall. She did not have any lightheadedness or syncope. She was euglycemic on presentation to the ER. She reports her last hemoglobin A1c was good for her age. Perez
--- NOTE | 2021-06-01 08:30 | P.PNIM_ITS ---
Progress Note: A&P Assessment and Plan (1) Subcapital fracture of neck of right femur: Qualifiers: Encounter type: initial encounter Fracture type: closed Qualified Code(s): S72.011A - Unspecified intracapsular fracture of right femur, initial encounter for closed fracture Code(s): S72.011A - Unspecified intracapsular fracture of right femur, initial encounter for closed fracture Status: Acute Assessment and Plan: * POD 1 * X-ray Hip: Displaced transcervical fracture of the proximal right femur * Ortho consulted thank you for your help * Diabetic Carb Consistent diet * Surgical intervention performed 05/31/21 * Pain medication: Tylenol 650 Q6hr PO PRN, [place] 1-2 tabs Q3-6Hr PRN * Bowel prep: Mylanta PRN, Senna/Docusate 2 tab PO BID, Miralax PO QAM * Antibiotics: Ancef 2gm Q8hr x 3 bags * Zofran for antiemetics * Orthopedics for postop care * PT/OT * DVT deferred to Ortho (2) Diabetes mellitus: Qualifiers: Diabetes mellitus complication status: without complication Diabetes mellitus penitentiary insulin use: without watermelon inspector use Diabetes mellitus type: type 2 Qualified Code(s): E11.9 - Type 2 diabetes mellitus without complications Code(s): E11.9 - Type 2 diabetes mellitus without complications Status: Inactive Assessment and Plan: * Glucose is 51 today, treated and repeat was 110 * Continue home glimepiride 4mg, Metformin 500mg PO BID, Empagliflozin 25mg PO daily * mild sliding scale insulin * Accu-Cheks a.c. HS * Trend glucose * Adjust therapy as indicated (3) Vomiting: Qualifiers: Nausea presence: with nausea Vomiting type: unspecified Qualified Code(s): R11.2 - Nausea with vomiting, unspecified Code(s): R11.10 - Vomiting, unspecified Status: Acute Assessment and Plan: * Seems to be resolved * One episode of vomiting over night * reports that her nausea becomes worse when she tries to lift her head from the pillow * denies any vertigo * mild nystagmus with looking to the right * no increased symptoms with this maneuver * Zofran as needed for nausea * Neuro checks for 24 hours (4) Hyperlipidemia: Code(s): E78.5 - Hyperlipidemia, unspecified Status: Acute Assessment and Plan: * Continue home pravastatin (5) Hypertension: Code(s): I10 - Essential (primary) hypertension Status: Acute Assessment and Plan: * Current BP is 121/81 * Seems a bit elevated, probably pain induced * Continue home Losartan 100mg PO daily * Trend BP * Adjust therapy as indicated Time Spent With Patient Time with patient: Greater than 35 minutes Subjective Date/time seen: 06/01/21 08:30 Interval history: Date/Time: 05/30/21 21:13 Narrative: 81-year-old female with past medical history of diabetes, hypertension and hyperlipidemia who presented to the ER after having a fall. She reports that she was reaching for something on her nightstand from a standing position when she lost her balance and fell. She hit the back of her head on her way down. She denies having any loss of consciousness. After the fall she tried to stand up but felt as if her leg was initially numb. She had severe pain in her hip when she tried to stand. Her leg no longer feels numbness she has movement of the lower extremity but the extremities externally rotated and shortened. She denies any headache or visual changes. However when she arrived on the med
[2021-06-01] MEDS: polyethylene glycoL 3350 17 GM POWD.PACK PO (08:41)
[2021-06-01] MEDS: PRAVASTATIN SODIUM 20 MG TABLET PO (08:42)
[2021-06-01] MEDS: PANTOPRAZOLE 40 MG TABLET PO (08:43)
[2021-06-01] MEDS: SENNA/DOCUSATE SODIUM TABLET 2 TAB PO ×2 (08:43→16:07)
[2021-06-01] MEDS: LOSARTAN POTASSIUM 100 MG TABLET PO (08:43)
[2021-06-01] MEDS: CITALOPRAM HYDROBROMIDE 20 MG TABLET 40 MG PO (08:43)
[2021-06-01] MEDS: FLUTICASONE PROPIONATE 0.05% NA SPR 16 GM BTL (*BKC) 2 SPRAY NASAL (08:46)
[2021-06-01 09:59] VITALS: BP 127/58; PULSE 83; RESP 16; TEMP 36.9; O2SAT 97
[2021-06-01] MEDS: ENOXAPARIN 40 MG/0.4 ML SYRINGE SUB-Q (10:08)
[2021-06-01 10:53] LABS: Glucose Point of Care 205 mg/dl (65-105)
--- NOTE | 2021-06-01 11:16 | WPDANESPN ---
Anes - Prog Note Post-Op Date/Time: 06/01/21 11:16 Cardiovascular status: normal Respiratory status: normal Airway patency: baseline Mental status: baseline Post-Op hydration status: normal Vital Signs: Last Vital Signs Temp 36.9 C 06/01/21 09:59 Pulse 83 06/01/21 09:59 Resp 16 06/01/21 09:59 BP 127/58 L 06/01/21 09:59 Pulse Ox 97 06/01/21 09:59 Pain Score (VAS): 0 I/O: Intake & Output 05/31/21 06/01/21 06/01/21 23:59 07:59 15:59 Intake Total 950 2305 Output Total 200 750 Balance 750 1555 Laboratory Tests 06/01/21 05:21 06/01/21 05:21 05/31/21 05/31/21 05/31/21 13:26 16:32 20:13 WBC RBC Hgb Hct MCV MCH MCHC RDW Plt Count MPV Immature Gran % (Auto) Neut % (Auto) Lymph % (Auto) [place] % (Auto) Eos % (Auto) Baso % (Auto) Lymph # (Auto) [place] # (Auto) Eos # (Auto) Baso # (Auto) Abs Immat Gran (auto) Absolute Neuts (auto) Absolute Nucleated RBC Nucleated RBC % Sodium Potassium Chloride Carbon Dioxide Anion Gap BUN Creatinine Estim Creat Clear Calc Estimated GFR Glucose POC Capillary Glucose 148 H 191 H 129 H Calcium Magnesium Total Bilirubin AST ALT Alkaline Phosphatase Total Protein Albumin 06/01/21 06/01/21 06/01/21 05:21 05:21 06:48 WBC 10.2 H RBC 3.72 L Hgb 10.6 L D Hct 32.9 L MCV 88.4 MCH 28.5 MCHC 32.2 RDW 14.2 Plt Count 198 MPV 9.4 Immature Gran % (Auto) 0.4 Neut % (Auto) 77.1 H Lymph % (Auto) 9.4 L [place] % (Auto) 12.4 H Eos % (Auto) 0.2 Baso % (Auto) 0.5 Lymph # (Auto) 0.95 [place] # (Auto) 1.3 H Eos # (Auto) 0.0 Baso # (Auto) 0.1 Abs Immat Gran (auto) 0.04 H Absolute Neuts (auto) 7.8 H Absolute Nucleated RBC 0.0 Nucleated RBC % 0.0 Sodium 137 Potassium 3.6 Chloride 110 H Carbon Dioxide 22 Anion Gap 5 L BUN 19 H Creatinine 0.70 Estim Creat Clear Calc 52 Estimated GFR > 60 Glucose 51 L* POC Capillary Glucose 64 L Calcium 8.2 L Magnesium 2.2 Total Bilirubin 0.7 AST 22 ALT 15 Alkaline Phosphatase 38 Total Protein 6.0 L Albumin 3.3 L 06/01/21 06/01/21 06/01/21 07:20 07:45 10:49 WBC RBC Hgb Hct MCV MCH MCHC RDW Plt Count MPV Immature Gran % (Auto) Neut % (Auto) Lymph % (Auto) [place] % (Auto) Eos % (Auto) Baso % (Auto) Lymph # (Auto) [place] # (Auto) Eos # (Auto) Baso # (Auto) Abs Immat Gran (auto) Absolute Neuts (auto) Absolute Nucleated RBC Nucleated RBC % Sodium Potassium Chloride Carbon Dioxide Anion Gap BUN Creatinine Estim Creat Clear Calc Estimated GFR Glucose POC Capillary Glucose 110 H 123 H 205 H Calcium Magnesium Total Bilirubin AST ALT Alkaline Phosphatase Total Protein Albumin Post-procedural complaints: none Patient Feedback: Patient satisfied with anesthetic care.
[2021-06-01 11:25] LABS: Glucose Point of Care 200 mg/dl (65-105)
[2021-06-01] MEDS: CYCLOBENZAPRINE HCL 10 MG TABLET PO (12:20)
[2021-06-01 14:12] VITALS: BP 126/58; PULSE 80; RESP 14; TEMP 36.8; O2SAT 98
[2021-06-01 16:26] LABS: Glucose Point of Care 172 mg/dl (65-105)
[2021-06-01 17:50] VITALS: BP 114/55; PULSE 95; RESP 16; TEMP 36.6; O2SAT 94
[2021-06-01 20:40] VITALS: BP 145/53; PULSE 94; RESP 16; TEMP 36.7; O2SAT 98
[2021-06-01 21:52] LABS: Glucose Point of Care 141 mg/dl (65-105)
[2021-06-02] VITALS (8 sets, daily range): BP systolic 117–162; BP diastolic 58–85; PULSE 75–112; RESP 16–20; TEMP 36.3–38.1; O2SAT 93–99; BMI 10.0
[2021-06-02 05:51] LABS: Basophils Absolute Auto 0.1 K/mm3 (0.0-0.1); Basophils Percent Auto 0.6 % (0.2-1.2); Eosinophils Percent Auto 0.4 % (0-4.4); Hematocrit 32.6 % (37.0-47.0); Hemoglobin 10.8 g/dL (12.0-15.0); Immature Granulocyte Absolute 0.05 K/mm3 (0.00-0.031); Immature Granulocyte Percent A 0.6 % (0-0.5); Lymphocytes Absolute Auto 0.78 K/mm3 (0.9-3.2); Lymphocytes Percent Auto 9.9 % (18.3-44.2); Mean Corpuscular HGB Conc 33.1 g/dl (32-36); Mean Corpuscular Volume 87.4 fl (80-100); Mean Platelet Volume 9.4 fl (7.4-10.4); Monocytes Percent Auto 12.4 % (2.6-8.5); Neutrophils Percent Auto 76.1 % (45.5-73.1); Platelet Count Result 182 k/mm3 (150-375); Red Blood Count 3.73 M/mm3 (4.2-5.4); Red Cell Distribution Width 14.1 % (11.5-14.5); White Blood Count 7.9 K/mm3 (4.5-10.0)
[2021-06-02 06:08] LABS: Alanine Aminotransferase 12 U/L (4-35); Albumin Level 3.6 g/dL (3.5-5.1); Alkaline Phosphatase 45 U/L (38-126); Anion Gap 8 mmol/L (8-16); Aspartate Amino Transferase 22 U/L (14-36); Bilirubin,Total 1.1 mg/dL (0.2-1.3); Blood Urea Nitrogen 16 mg/dL (7-17); Calcium 8.5 mg/dL (8.4-10.2); Carbon Dioxide 19 mmol/L (22-30); Chloride 107 mmol/L (98-107); Estimated CRCL calculation 60 ml/min; Estimated Glomerular Filt Rate > 60; Glucose 82 mg/dL (65-110); Magnesium 2.4 mg/dL (1.6-2.3); Potassium 3.7 mmol/L (3.4-5.0); Sodium 134 mmol/L (137-145)
[2021-06-02 07:59] LABS: Glucose Point of Care 68 mg/dl (65-105)
[2021-06-02] MEDS: PRAVASTATIN SODIUM 20 MG TABLET PO (08:20)
[2021-06-02] MEDS: CITALOPRAM HYDROBROMIDE 20 MG TABLET 40 MG PO (08:20)
[2021-06-02] MEDS: PANTOPRAZOLE 40 MG TABLET PO (08:21)
[2021-06-02 08:22] LABS: Glucose Point of Care 121 mg/dl (65-105)
[2021-06-02] MEDS: ENOXAPARIN 40 MG/0.4 ML SYRINGE SUB-Q (08:22)
[2021-06-02] MEDS: SENNA/DOCUSATE SODIUM TABLET 2 TAB PO ×2 (08:23→16:27)
[2021-06-02] MEDS: LOSARTAN POTASSIUM 100 MG TABLET PO (08:23)
[2021-06-02] MEDS: polyethylene glycoL 3350 17 GM POWD.PACK PO (08:24)
[2021-06-02] MEDS: FLUTICASONE PROPIONATE 0.05% NA SPR 16 GM BTL (*BKC) 2 SPRAY NASAL (08:24)
[2021-06-02] MEDS: HYDROcodone/acetaminophen (*CRX) 5-325 MG TABLET 2 TAB PO (10:08)
--- NOTE | 2021-06-02 11:00 | PM.IMPN ---
Progress Note: A&P Assessment and Plan (1) Female bladder prolapse: Code(s): N81.10 - Cystocele, unspecified Status: Acute Assessment and Plan: Urinary catheter was removed Unable to void Several bladder scans performed with >700 Urinary catheter replaced Report bladder has fallen in the past Seems to be obstructing Urology consult thank you for your help (2) Subcapital fracture of neck of right femur: Qualifiers: Encounter type: initial encounter Fracture type: closed Qualified Code(s): S72.011A - Unspecified intracapsular fracture of right femur, initial encounter for closed fracture Code(s): S72.011A - Unspecified intracapsular fracture of right femur, initial encounter for closed fracture Status: Acute Assessment and Plan: POD 2 X-ray Hip: Displaced transcervical fracture of the proximal right femur Ortho consulted thank you for your help Diabetic Carb Consistent diet Surgical intervention performed 05/31/21 Pain medication: Tylenol 650 Q6hr PO PRN, [place] 1-2 tabs Q3-6Hr PRN Bowel prep: Mylanta PRN, Senna/Docusate 2 tab PO BID, Miralax PO QAM Antibiotics: Ancef 2gm Q8hr x 3 bags Zofran for antiemetics Orthopedics for postop care PT/OT DVT deferred to Ortho (3) Diabetes mellitus: Qualifiers: Diabetes mellitus complication status: without complication Diabetes mellitus group home insulin use: without group home use Diabetes mellitus type: type 2 Qualified Code(s): E11.9 - Type 2 diabetes mellitus without complications Code(s): E11.9 - Type 2 diabetes mellitus without complications Status: Inactive Assessment and Plan: Glucose is 150 today Hold home glimepiride 4mg, Metformin 500mg PO BID, Empagliflozin 25mg PO daily mild sliding scale insulin Accu-Cheks a.c. HS Trend glucose Adjust therapy as indicated (4) Vomiting: Qualifiers: Nausea presence: with nausea Vomiting type: unspecified Qualified Code(s): R11.2 - Nausea with vomiting, unspecified Code(s): R11.10 - Vomiting, unspecified Status: Acute Assessment and Plan: Seems to be resolved One episode of vomiting over night reports that her nausea becomes worse when she tries to lift her head from the pillow denies any vertigo mild nystagmus with looking to the right no increased symptoms with this maneuver Zofran as needed for nausea Neuro checks for 24 hours (5) Hyperlipidemia: Code(s): E78.5 - Hyperlipidemia, unspecified Status: Acute Assessment and Plan: Continue home pravastatin (6) Hypertension: Code(s): I10 - Essential (primary) hypertension Status: Acute Assessment and Plan: Current BP is 149/65 Seems a bit elevated, probably pain induced Continue home Losartan 100mg PO daily Trend BP Adjust therapy as indicated Time Spent With Patient Time with patient: Greater than 35 minutes Subjective Date/time seen: 06/02/21 11:00 Interval history: Date/Time: 05/30/21 21:13 Narrative: 81-year-old female with past medical history of diabetes, hypertension and hyperlipidemia who presented to the ER after having a fall. She reports that she was reaching for something on her nightstand from a standing position when she lost her balance and fell. She hit the back of her head on her way down. She denies having any loss of consciousness. After the fall she tried to stand up but felt as if her leg was initially numb. She had severe pain in her hip when she tried to stand. Her leg no longer feels numbness she has movement of the lower extremity but the extremities externally rotated and shortened. She denies any headache or visual changes. However when she arrived on the medical floor she did have an episode of nausea and vomiting. She reports feeling nauseated any time she lifts her head from the pillow. She denies any
--- NOTE | 2021-06-02 11:00 | P.PNIM_ITS ---
Progress Note: A&P Assessment and Plan (1) Female bladder prolapse: Code(s): N81.10 - Cystocele, unspecified Status: Acute Assessment and Plan: * Urinary catheter was removed * Unable to void * Several bladder scans performed with >700 * Urinary catheter replaced * Report bladder has fallen in the past * Seems to be obstructing * Urology consult thank you for your help (2) Subcapital fracture of neck of right femur: Qualifiers: Encounter type: initial encounter Fracture type: closed Qualified Code(s): S72.011A - Unspecified intracapsular fracture of right femur, initial encounter for closed fracture Code(s): S72.011A - Unspecified intracapsular fracture of right femur, initial encounter for closed fracture Status: Acute Assessment and Plan: * POD 2 * X-ray Hip: Displaced transcervical fracture of the proximal right femur * Ortho consulted thank you for your help * Diabetic Carb Consistent diet * Surgical intervention performed 05/31/21 * Pain medication: Tylenol 650 Q6hr PO PRN, [place] 1-2 tabs Q3-6Hr PRN * Bowel prep: Mylanta PRN, Senna/Docusate 2 tab PO BID, Miralax PO QAM * Antibiotics: Ancef 2gm Q8hr x 3 bags * Zofran for antiemetics * Orthopedics for postop care * PT/OT * DVT deferred to Ortho (3) Diabetes mellitus: Qualifiers: Diabetes mellitus complication status: without complication Diabetes mellitus ferry terminal supervisor insulin use: without halfway use Diabetes mellitus type: type 2 Qualified Code(s): E11.9 - Type 2 diabetes mellitus without complications Code(s): E11.9 - Type 2 diabetes mellitus without complications Status: Inactive Assessment and Plan: * Glucose is 150 today * Hold home glimepiride 4mg, Metformin 500mg PO BID, Empagliflozin 25mg PO daily * mild sliding scale insulin * Accu-Cheks a.c. HS * Trend glucose * Adjust therapy as indicated (4) Vomiting: Qualifiers: Nausea presence: with nausea Vomiting type: unspecified Qualified Code(s): R11.2 - Nausea with vomiting, unspecified Code(s): R11.10 - Vomiting, unspecified Status: Acute Assessment and Plan: * Seems to be resolved * One episode of vomiting over night * reports that her nausea becomes worse when she tries to lift her head from the pillow * denies any vertigo * mild nystagmus with looking to the right * no increased symptoms with this maneuver * Zofran as needed for nausea * Neuro checks for 24 hours (5) Hyperlipidemia: Code(s): E78.5 - Hyperlipidemia, unspecified Status: Acute Assessment and Plan: * Continue home pravastatin (6) Hypertension: Code(s): I10 - Essential (primary) hypertension Status: Acute Assessment and Plan: * Current BP is 149/65 * Seems a bit elevated, probably pain induced * Continue home Losartan 100mg PO daily * Trend BP * Adjust therapy as indicated Time Spent With Patient Time with patient: Greater than 35 minutes Subjective Date/time seen: 06/02/21 11:00 Interval history: Date/Time: 05/30/21 21:13 Narrative: 81-year-old female with past medical history of diabetes, hypertension and hyperlipidemia who presented to the ER after having a fall. She reports that she was reaching for something on her nightstand from a standing position when she lost her balance and fell. She hit the back of her head on her way down. She tereso
[2021-06-02 11:55] LABS: Glucose Point of Care 153 mg/dl (65-105)
--- NOTE | 2021-06-02 12:23 | WPDURCON ---
Assessment and Plan Assessment and plan (1) Female bladder prolapse: Code(s): N81.10 - Cystocele, unspecified Status: Acute Assessment and Plan: Significant cystocele present on examination, 3+. She has had this for many years. I suspect she may have some difficulty urinating and emptying her bladder but denies it, however I think anesthesia may be contributing more to her retention at this time. (2) Retention of urine: Code(s): R33.9 - Retention of urine, unspecified Status: Acute Assessment and Plan: I suggest keeping her petersen in for a week then f/u in the office for a voiding trial. If unable to urinate we will send for Urodynamics, no need for further evaluation at this time. I am hesitant to start Flomax d/t diastolic pressures being slightly low. Urology Consult Note HPI Date Seen: 06/02/21 Requesting Physician: Tracy Barber DO Primary Care Provider: Miracle Baldwin, Consult Narrative Narrative: Rosalinda Thornton is a 81 year old female who presented initially to the hospital after a fall that caused a right femoral neck fracture resulting in a bipolar right hip replacement on 05/31/[address] Silveira. She had a petersen removal done yesterday which resulted in elevated PVR of >700cc. She was noted to also have a cystocele on examination that was possibly thought to be contributing to retention. She states her prolapse has been present for many years and has worsened over time but isn't bothersome to her. She denies difficulty with urination normally, incontinence, straining, hesitancy, frequency, urgency or chronic UTI's. She has not seen a urologist in the past. She has also never had a hysterectomy. WBC is normal at 7.9, creatinine is 0.60. She had her petersen replaced d/t elevated PVR and urine is draining to gravity, it is clear and yellow. Review of Systems Cardiovascular: Cardiovascular: Reports no additional cardiovascular complaints Respiratory: Respiratory: Reports no additional respiratory complaints Gastrointestinal: Gastrointestinal: Denies abdominal pain, Denies nausea and Denies vomiting Genitourinary: Genitourinary: Denies hematuria, Denies dysuria, Denies pelvic pain, Denies flank pain, Denies urinary incontinence, Denies urinary hesitancy and Denies urinary urgency [facility] Past Medical History Medical History Allergic rhinitis Basal cell carcinoma (BCC) of [place] Diabetes mellitus GERD (gastroesophageal reflux disease) Hyperlipidemia Hypertension Subcapital fracture of neck of right femur Surgical History Surgical History History of appendectomy History of lumpectomy of left breast With cystic pathology 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 She lives with her 240 8-year-old daughters who are selectively mute. She reports that her daughters are very intelligent but do not speak. She would wish her daughters to be her surrogate decision makers if she was unable to make her own decisions. She reports her daughters communicate via writing. 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 She is a lifelong nonsmoker. She does drink alcohol on occasion in moderation. She had a glass of wine on the night of the . She is independent activities of daily living. Code status: Full code. She has ad
[2021-06-02] MEDS: TOLNAFTATE 1% POWDER 45 GM BTL 1 APPLIC TOPICAL ×2 (14:38→21:16)
--- NOTE | 2021-06-02 14:43 | PM.PNORT ---
Progress Note: A&P Assessment and Plan (1) S/P hip replacement: Qualifiers: Laterality: right Qualified Code(s): Z96.641 - Presence of right artificial hip joint Code(s): Z96.649 - Presence of unspecified artificial hip joint Status: Resolved Assessment and Plan: 81-year-old female postop day 2 after right bipolar hip replacement. She is going to be discharged to a nursing facility. The facility has stated that they can remove the rhoda at the 2 week point after surgery. This would be on or around June 14. She will then be seen in our office in 8 weeks for follow-up and new x-ray. She was informed to call our office with any further questions or concerns. For DVT prophylaxis at discharge: -10 mg Xarelto 1 time daily for 14 days, then 325 mg aspirin 1 time daily for 4 weeks. Resume daily aspirin after this is completed. For pain at discharge: -[place] 7.5/325 q4 p.r.n. -cyclobenzaprine 10 mg q8 p.r.n. Subjective Subjective Date/Time Seen: 06/02/21 14:43 81-year-old female postop day 2 after right bipolar hip replacement. Overall doing well and progressing with therapy. Post Op day: 2 Principal diagnosis: Status post right hip bipolar hemiarthroplasty Review of Systems Review of Systems: All systems reviewed & are unremarkable except as noted in HPI and below Exam Const: General: comfortable and no acute distress GI: Inspection: non-distended GI Palp: No Tenderness to palpation present (GI) Neuro: Sensory Exam: normal sensation Extrem: Other: Exam of the right hip shows a clean and dry surgical dressing. No bruising around the incision site. Neurovascular status unremarkable. Psych: Mental Status: mental status grossly normal Objective Data Vital Signs Vital Signs: Vital Signs - 24 hr 06/01/21 17:50 06/01/21 20:40 06/02/21 01:09 Temperature 97.8 F 98.0 F 100.5 F H Pulse Rate 95 94 112 H Respiratory Rate 16 16 16 Blood Pressure 114/55 L 145/53 H 148/58 H Pulse Oximetry 94 98 93 06/02/21 02:20 06/02/21 03:17 06/02/21 04:38 Temperature 100.6 F H 99.2 F Pulse Rate 103 H Respiratory Rate Blood Pressure Pulse Oximetry 95 02/17/22 04:47 06/02/21 11:00 Temperature 99.7 F H 98.3 F Pulse Rate 105 H 100 Respiratory Rate 16 17 Blood Pressure 149/65 H 138/65 Pulse Oximetry 93 96 Intake/Output Intake/Output: Intake & Output 05/30/21 05/31/21 06/01/21 06/02/21 23:59 23:59 23:59 23:59 Intake Total 1300 3505 1000 Output Total 300 1700 2300 1100 Balance -300 -400 1205 -100 Meds/Results Medications: Active Medications Generic Name Dose Route Start Last Admin Trade Name Freq PRN Reason Stop Dose Admin Acetaminophen 650 mg 05/31/21 15:25 Acetaminophen 325 Mg Tablet PO Q6H PRN Mild Pain (1-3) or Fever Hydrocodone Bitart/Acetaminophen 1 tab 05/31/21 15:25 05/31/21 17:51 Hydrocodone/Acetaminophen (*Crx) 5-325 Mg Tablet PO 1 tab Q3H PRN Administration Pain Rated 4-6 Hydrocodone Bitart/Acetaminophen 2 tab 05/31/21 15:25 06/02/21 10:08 Hydrocodone/Acetaminophen (*Crx) 5-325 Mg Tablet PO 2 tab Q6H PRN Administration Pain Rated 7-10 Al Hydrox/Mg Hydrox/Simethicone 30 ml 05/31/21 15:25 Mag Hydrox/Al Hydrox/Simeth 30 Ml Udc PO Q6H PRN Indigestion Benzocaine 1 lozenge 06/01/21 08:59 Benzocaine/Menthol (*Bkc) 18 Ea Lozenge PO PRN PRN Sore Throat Citalopram Hydrobromide 40 mg 06/01/21 09:00 06/02/21 08:20 Citalopram Hydrobromide 20 Mg Tablet PO 40 mg DAILY LISA Administration Cyclobenzaprine HCl 10 mg 06/01/21 12:03 06/01/21 12:20 Cyclobenzaprine Hcl 10 Mg Tablet PO 10 mg Q8H PRN Administration Muscle Spasm Dextrose 12.5 gm 05/30/21 21:20 Dextrose 50% 25 Gm/50 Ml Syringe IV PUSH PRN PRN Hypoglycemia Protocol Enoxaparin Sodium 40 mg 06/01/21 11:00 06/02/21 08:22 Enoxaparin 40 Mg/0.4 Ml Syringe SUB-Q 40 mg DAILY S
[2021-06-02 16:27] LABS: Glucose Point of Care 177 mg/dl (65-105)
[2021-06-02 20:04] LABS: Glucose Point of Care 143 mg/dl (65-105)
[2021-06-02] MEDS: CYCLOBENZAPRINE HCL 10 MG TABLET PO (21:16)
[2021-06-03 04:14] VITALS: BP 153/63; PULSE 101; RESP 20; TEMP 36.6; O2SAT 94
[2021-06-03 04:44] VITALS: O2SAT 92
[2021-06-03 06:00] LABS: Basophils Absolute Auto 0.1 K/mm3 (0.0-0.1); Basophils Percent Auto 0.7 % (0.2-1.2); Eosinophils Absolute Auto 0.1 K/mm3 (0-0.3); Eosinophils Percent Auto 0.7 % (0-4.4); Hematocrit 31.7 % (37.0-47.0); Hemoglobin 10.4 g/dL (12.0-15.0); Immature Granulocyte Absolute 0.06 K/mm3 (0.00-0.031); Immature Granulocyte Percent A 0.8 % (0-0.5); Lymphocytes Absolute Auto 0.82 K/mm3 (0.9-3.2); Lymphocytes Percent Auto 10.9 % (18.3-44.2); Mean Corpuscular HGB Conc 32.8 g/dl (32-36); Mean Corpuscular Hemoglobin 28.3 pg (26-34); Mean Corpuscular Volume 86.4 fl (80-100); Mean Platelet Volume 9.5 fl (7.4-10.4); Monocytes Percent Auto 12.6 % (2.6-8.5); Neutrophils Absolute Auto 5.6 K/mm3 (1.3-6.7); Neutrophils Percent Auto 74.3 % (45.5-73.1); Platelet Count Result 199 k/mm3 (150-375); Red Blood Count 3.67 M/mm3 (4.2-5.4); Red Cell Distribution Width 13.8 % (11.5-14.5); White Blood Count 7.6 K/mm3 (4.5-10.0)
[2021-06-03 06:01] LABS: Alanine Aminotransferase 11 U/L (4-35); Albumin Level 3.3 g/dL (3.5-5.1); Alkaline Phosphatase 43 U/L (38-126); Anion Gap 7 mmol/L (8-16); Aspartate Amino Transferase 21 U/L (14-36); Blood Urea Nitrogen 14 mg/dL (7-17); Calcium 8.2 mg/dL (8.4-10.2); Carbon Dioxide 23 mmol/L (22-30); Chloride 106 mmol/L (98-107); Estimated CRCL calculation 70 ml/min; Estimated Glomerular Filt Rate > 60; Glucose 98 mg/dL (65-110); Magnesium 2.4 mg/dL (1.6-2.3); Potassium 3.6 mmol/L (3.4-5.0); Sodium 136 mmol/L (137-145)
[2021-06-03 07:44] LABS: Glucose Point of Care 92 mg/dl (65-105)
[2021-06-03 07:56] LABS: Glucose Point of Care 103 mg/dl (65-105)
[2021-06-03] MEDS: LOSARTAN POTASSIUM 100 MG TABLET PO (08:01)
[2021-06-03] MEDS: PRAVASTATIN SODIUM 20 MG TABLET PO (08:02)
[2021-06-03] MEDS: ENOXAPARIN 40 MG/0.4 ML SYRINGE SUB-Q (08:02)
[2021-06-03] MEDS: FLUTICASONE PROPIONATE 0.05% NA SPR 16 GM BTL (*BKC) 2 SPRAY NASAL (08:02)
[2021-06-03] MEDS: TOLNAFTATE 1% POWDER 45 GM BTL 1 APPLIC TOPICAL (08:02)
[2021-06-03] MEDS: SENNA/DOCUSATE SODIUM TABLET 2 TAB PO (08:02)
[2021-06-03] MEDS: PANTOPRAZOLE 40 MG TABLET PO (08:02)
[2021-06-03] MEDS: CITALOPRAM HYDROBROMIDE 20 MG TABLET 40 MG PO (08:02)
[2021-06-03] MEDS: polyethylene glycoL 3350 17 GM POWD.PACK PO (08:07)
--- NOTE | 2021-06-03 09:00 | PM.DS ---
DS: Admitting Diagnosis Discharge Date 06/03/21 0900 Admitting Diagnosis Right hip fracture repair DS: Discharge Diagnosis Discharge Diagnosis (1) Female bladder prolapse: Code(s): N81.10 - Cystocele, unspecified Status: Acute Assessment and Plan: Urinary catheter was removed Unable to void Several bladder scans performed with >700 Urinary catheter replaced Report bladder has fallen in the past Seems to be obstructing Urology consult thank you for your help Will need to follow up with urology 1 week post discharge (2) Subcapital fracture of neck of right femur: Qualifiers: Encounter type: initial encounter Fracture type: closed Qualified Code(s): S72.011A - Unspecified intracapsular fracture of right femur, initial encounter for closed fracture Code(s): S72.011A - Unspecified intracapsular fracture of right femur, initial encounter for closed fracture Status: Acute Assessment and Plan: POD 3 X-ray Hip: Displaced transcervical fracture of the proximal right femur Ortho consulted thank you for your help Diabetic Carb Consistent diet Surgical intervention performed 05/31/21 Pain medication: Tylenol 650 Q6hr PO PRN, [place] 1-2 tabs Q3-6Hr PRN Bowel prep: Mylanta PRN, Senna/Docusate 2 tab PO BID, Miralax PO QAM Antibiotics: Ancef 2gm Q8hr x 3 bags Zofran for antiemetics Orthopedics for postop care PT/OT DVT deferred to Ortho (3) Diabetes mellitus: Qualifiers: Diabetes mellitus complication status: without complication 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 HS Trend glucose Adjust therapy as indicated (4) Vomiting: Qualifiers: Nausea presence: with nausea Vomiting type: unspecified Qualified Code(s): R11.2 - Nausea with vomiting, unspecified Code(s): R11.10 - Vomiting, unspecified Status: Acute Assessment and Plan: Seems to be resolved One episode of vomiting over night reports that her nausea becomes worse when she tries to lift her head from the pillow denies any vertigo mild nystagmus with looking to the right no increased symptoms with this maneuver Zofran as needed for nausea Neuro checks for 24 hours (5) Hyperlipidemia: Code(s): E78.5 - Hyperlipidemia, unspecified Status: Acute Assessment and Plan: Continue home pravastatin (6) Hypertension: Code(s): I10 - Essential (primary) hypertension Status: Acute Assessment and Plan: Current BP is 153/63 Seems a bit elevated, probably pain induced Continue home Losartan 100mg PO daily Trend BP Adjust therapy as indicated DS: Summary Hospital Course Hospital Course: Patient is a 81 year old with a past medical history of BCC, DM, GERD, HLD, and HTN who presented after a fall. Ortho was consulted and was taken to the OR for surgical intervention. Patient was also noted to have a moment of hypoglycemia and all of her home antidiabetic medications have been placed on hold at this time. Glucose has been anywhere between 80s to 150s. Blood pressure is also been controlled on home medications. Patient was also noted to have a bladder prolapse and was unable to maintain her urinary system without a catheter. Catheter has been replaced. Urology had been consulted and is wanting the patient to follow-up with them and 1 week post discharge. Patient has been accepted to acute rehab center and is stable for rehab. Patient continues have no complaints however she alejo
--- NOTE | 2021-06-03 09:00 | P.DS_ITS ---
DS: Admitting Diagnosis Discharge Date 06/03/21 0900 Admitting Diagnosis Right hip fracture repair DS: Discharge Diagnosis Discharge Diagnosis (1) Female bladder prolapse: Code(s): N81.10 - Cystocele, unspecified Status: Acute Assessment and Plan: * Urinary catheter was removed * Unable to void * Several bladder scans performed with >700 * Urinary catheter replaced * Report bladder has fallen in the past * Seems to be obstructing * Urology consult thank you for your help * Will need to follow up with urology 1 week post discharge (2) Subcapital fracture of neck of right femur: Qualifiers: Encounter type: initial encounter Fracture type: closed Qualified Code(s): S72.011A - Unspecified intracapsular fracture of right femur, initial encounter for closed fracture Code(s): S72.011A - Unspecified intracapsular fracture of right femur, initial encounter for closed fracture Status: Acute Assessment and Plan: * POD 3 * X-ray Hip: Displaced transcervical fracture of the proximal right femur * Ortho consulted thank you for your help * Diabetic Carb Consistent diet * Surgical intervention performed 05/31/21 * Pain medication: Tylenol 650 Q6hr PO PRN, [place] 1-2 tabs Q3-6Hr PRN * Bowel prep: Mylanta PRN, Senna/Docusate 2 tab PO BID, Miralax PO QAM * Antibiotics: Ancef 2gm Q8hr x 3 bags * Zofran for antiemetics * Orthopedics for postop care * PT/OT * DVT deferred to Ortho (3) Diabetes mellitus: Qualifiers: Diabetes mellitus complication status: without complication 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 HS * Trend glucose * Adjust therapy as indicated (4) Vomiting: Qualifiers: Nausea presence: with nausea Vomiting type: unspecified Qualified Code(s): R11.2 - Nausea with vomiting, unspecified Code(s): R11.10 - Vomiting, unspecified Status: Acute Assessment and Plan: * Seems to be resolved * One episode of vomiting over night * reports that her nausea becomes worse when she tries to lift her head from the pillow * denies any vertigo * mild nystagmus with looking to the right * no increased symptoms with this maneuver * Zofran as needed for nausea * Neuro checks for 24 hours (5) Hyperlipidemia: Code(s): E78.5 - Hyperlipidemia, unspecified Status: Acute Assessment and Plan: * Continue home pravastatin (6) Hypertension: Code(s): I10 - Essential (primary) hypertension Status: Acute Assessment and Plan: * Current BP is 153/63 * Seems a bit elevated, probably pain induced * Continue home Losartan 100mg PO daily * Trend BP * Adjust therapy as indicated DS: Summary Hospital Course Hospital Course: Patient is a 81 year old with a past medical history of BCC, DM, GERD, HLD, and HTN who presented after a fall. Ortho was consulted and was taken to the OR for surgical intervention. Patient was also noted to have a moment of hypoglycemia and all of her home antidiabetic
[2021-06-03] MEDS: BISACODYL 10 MG SUPPOSITORY RECTAL (09:34)
[2021-06-03] MEDS: KETOROLAC 15 MG/ML VIAL (*BKC) IV PUSH (10:02)
[2021-06-03 10:29] LABS: EDCOVIDSCREEN Positive (Negative)
--- NOTE | 2021-06-03 11:27 | PM.PNORT ---
Progress Note: A&P Assessment and Plan (1) S/P hip replacement: Qualifiers: Laterality: right Qualified Code(s): Z96.641 - Presence of right artificial hip joint Code(s): Z96.649 - Presence of unspecified artificial hip joint Status: Resolved Assessment and Plan: 81-year-old female postop day 3. Plan is to discharge to nursing facility she will have rhoda removed at or around June 14 while at the nursing facility. If she is discharge prior to these being taken out she can call the office and we will get her in right away for removal. Otherwise, plan on seeing her in 8 weeks with a new x-ray. She was informed to call our office with any further questions or concerns. For DVT prophylaxis at discharge: -10 mg Xarelto 1 time daily for 14 days, then 325 mg aspirin 1 time daily for 4 weeks. Resume daily aspirin after this is completed. For pain at discharge: -Zebulon 7.5/325 q6 p.r.n. -cyclobenzaprine 10 mg q8 p.r.n. Time Spent With Patient Time with patient: less than 15 minutes Subjective Subjective Date/Time Seen: 06/03/21 11:27 81-year-old female postop day 3. Overall doing well. Does have some stiffness with therapy but is progressing. She has had a bowel movement and no issues with the surgical dressing. Post Op day: 3 Principal diagnosis: Status post right hip bipolar hemiarthroplasty Review of Systems Review of Systems: All systems reviewed & are unremarkable except as noted in HPI and below Exam Const: General: comfortable and no acute distress Resp: Effort & Inspection: normal respiratory effort GI: Inspection: non-distended GI Palp: No Tenderness to palpation present (GI) Extrem: Other: Exam of the right hip shows a clean and dry surgical dressing. No bruising around the incision site. Neurovascular status unremarkable. Calves negative. Psych: Mental Status: mental status grossly normal Objective Data Vital Signs Vital Signs: Vital Signs - 24 hr 06/02/21 14:30 06/02/21 19:45 06/03/21 04:14 Temperature 98.4 F 97.3 F L 97.9 F Pulse Rate 75 97 101 H Respiratory Rate 16 20 20 Blood Pressure 117/85 162/59 H 153/63 H Pulse Oximetry 95 99 94 06/03/21 04:44 Temperature Pulse Rate Respiratory Rate Blood Pressure Pulse Oximetry 92 Intake/Output Intake/Output: Intake & Output 05/31/21 06/01/21 06/02/21 06/03/21 23:59 23:59 23:59 23:59 Intake Total 1300 3505 1710 430 Output Total 1700 2300 2300 900 Balance -400 5490 -361 -245 Meds/Results Medications: Active Medications Generic Name Dose Route Start Last Admin Trade Name Freq PRN Reason Stop Dose Admin Acetaminophen 650 mg 05/31/21 15:25 Acetaminophen 325 Mg Tablet PO Q6H PRN Mild Pain (1-3) or Fever Hydrocodone Bitart/Acetaminophen 1 tab 05/31/21 15:25 05/31/21 17:51 Hydrocodone/Acetaminophen (*Crx) 5-325 Mg Tablet PO 1 tab Q3H PRN Administration Pain Rated 4-6 Hydrocodone Bitart/Acetaminophen 2 tab 05/31/21 15:25 06/02/21 10:08 Hydrocodone/Acetaminophen (*Crx) 5-325 Mg Tablet PO 2 tab Q6H PRN Administration Pain Rated 7-10 Al Hydrox/Mg Hydrox/Simethicone 30 ml 05/31/21 15:25 Mag Hydrox/Al Hydrox/Simeth 30 Ml Udc PO Q6H PRN Indigestion Benzocaine 1 lozenge 06/01/21 08:59 Benzocaine/Menthol (*Bkc) 18 Ea Lozenge PO PRN PRN Sore Throat Citalopram Hydrobromide 40 mg 06/01/21 09:00 06/03/21 08:02 Citalopram Hydrobromide 20 Mg Tablet PO 40 mg DAILY LISA Administration Cyclobenzaprine HCl 10 mg 06/01/21 12:03 06/02/21 21:16 Cyclobenzaprine Hcl 10 Mg Tablet PO 10 mg Q8H PRN Administration Muscle Spasm Dextrose 12.5 gm 05/30/21 21:20 Dextrose 50% 25 Gm/50 Ml Syringe IV PUSH PRN PRN Hypoglycemia Protocol Enoxaparin Sodium 40 mg 06/01/21 11:00 06/03/21 08:02 Enoxaparin 40 Mg/0.4 Ml Syringe SUB-Q 40 mg DAILY LISA Administration Fluticasone Propionate 2 spray
[2021-06-03 11:53] LABS: Glucose Point of Care 158 mg/dl (65-105)
== END 2021-06-03 12:07 | DRG 521 ==
LOC: ANHED 20:19 → ANH2MED 05-31 06:19
PROVIDERS: Emergency Medicine Emergency Medical Services; Orthopaedic Surgery; Admitting Provider Internal Medicine; Emergency Provider Emergency Medicine; PCP Family Medicine; Visit Provider Nurse Practitioner
PROC: 0SRR01A Replacement of Right Hip Joint, Femoral Surface with Metal Synthetic Substitute, Uncemented, Open Approach (ICD-10-PCS; CPT 27125; principal; 2021-05-31 10:30)
DX: S72.031A Displaced midcervical fracture of right femur, initial encounter for closed fracture (principal); U07.1 COVID-19; E11.9 Type 2 diabetes mellitus without complications; W18.39XA Other fall on same level, initial encounter; I10 Essential (primary) hypertension; K21.9 Gastro-esophageal reflux disease without esophagitis; E78.5 Hyperlipidemia, unspecified; N81.10 Cystocele, unspecified; R33.8 Other retention of urine; E11.649 Type 2 diabetes mellitus with hypoglycemia without coma; T41.45XA Adverse effect of unspecified anesthetic, initial encounter; H55.00 Unspecified nystagmus; Z85.828 Personal history of other malignant neoplasm of skin; Z90.49 Acquired absence of other specified parts of digestive tract; Z98.42 Cataract extraction status, left eye; Z98.41 Cataract extraction status, right eye; Z96.1 Presence of intraocular lens; Z79.84 Long term (current) use of oral hypoglycemic drugs
CPT/HCPCS: 36415; 51702; 70450; 71045; 72125; 73502; 80053; 82948; 83735; 85025; 85610; 85730; 87426; 88307; 88311; 93005; 96374; 96375; 97110; 97116; 97161; 97165; 97530; 97535; 99285; A9270; C1713; C1776; C9803; J0171; J0690; J1100; J1650; J1885; J2270; J2405; J2704; J2710; J2795; J3010; J7030; J7120

== ENCOUNTER 2021-09-08 14:00 | Outpatient (RCR) | payer MEDICARE, BC, SELFPAY ==
--- NOTE | 2021-08-05 15:07 | PTOPEVAL ---
PHYSICAL THERAPY EVALUATION AND PLAN OF CARE 08-05-21 Thank you for referring Rosalinda Thornton to [facility], s/p fall with R THR and decreased balance. She is scheduled to be seen for therapy? 2 x/week for 5 weeks. Please review, sign, date and return this plan of care IONA. I agree with and certify that the following plan of care is medically necessary. Referring Physician Date Attending Provider: Jose Guadalupe Silveira MD Past Medical History Source of Past Medical History Recalled from Previous Visit, Confirmed with Patient/Family Neurological History Hx Neurological Disorders No Significant History Cardiovascular History Hx Hypercholesterolemia Yes: meds Hx Hypertension Yes: meds Respiratory History Hx Respiratory Disorders No Significant History Gastrointestinal History Hx Appendectomy Yes Hx Gastroesophageal Reflux Disease Yes Genitourinary History Hx Genitourinary Disorders No Significant History Musculoskeletal History Hx Fractures Yes: RIGHT FOOT-non surgical Hx Orthopedic Surgery Yes: R THR Hematological History Hx Blood Transfusions Yes Endocrine History Hx Diabetes Yes: NIDD HEENT History Hx Cataracts Yes: LENS IMPLANTS BILAT Integumentary History Hx Skin Disorders No Significant History Reproductive History Hx Reproductive Disorders No Significant History Psychosocial History Hx Anxiety Yes Pain History History of Any Previous or Ongoing No Significant History Instance of Pain Anesthesia History Hx Anesthesia Reactions No Significant History Evaluation Information Problem Diagnosis s/p R THR due to fracture Onset 05-31-21 Subjective Information had in pt rehab, had [facility] Query Text:As Reported By Patient/ therapy; using walker all the Family time; Dr Silveira told her to use the walker all the time-- NOT to use cane due to falls; have not been doing the exercises as much since fell and was in bed a few days; Prior Level of Function Activity Level (Last 3 Months) Indoor/Home Mobility Independent Functional Cognition (Planning, Shopping Needs Some Help , Taking Medications) Cooking No Cleaning No Laundry No Shopping No Driving No Home Setting Home Type House,Multiple Levels Environmental Barriers Railing, Ascend Right,Stairs, Greater than 4,Stairs, Lift Living Situation With Adult Child,With Spouse Mobility Assistive Devices (Used [place]
--- NOTE | 2021-09-08 14:48 | PTOPEVAL ---
PHYSICAL THERAPY DISCHARGE 09-08-21 Refer to the clinical summary below, for a comparison for today's reeval to the initial evaluation. Discharge PT services. She is to continue with the home exercises, increase her activity and walking tolerance. And to continue using the wheeled walker and observing her THR precautions. Thank you for referring Rosalinda Thornton to [facility].? Please review, sign, date and return this Discharge report IONA. I agree with and certify that the following plan of care is medically necessary. Referring Physician Date Attending Provider: Jose Guadalupe Silveira MD Subjective: Rosalinda reports: doing better with walking and getting in/ out shower; has not had any falls; less fearful of falling; have gone out to grocery store and shopping at mall; have gone down into her basement without any problems; doing her exercises at home; agrees to discharge from PT; Pain Assessment Pain Scale Pain Scale Used Numeric (1 - 10) Self Report Pain Assessment Right Hip(s) Reported Pain Level 0 Pain Frequency Chronic,Intermittent Other Pain Description nawing pain in lateral hip; Lowest Pain Intensity 0 Greatest Pain Intensity 4 Pain Aggravating Factors Exercise/Activity Pain Score Pain Score 0: Self Report Interventions Used Interventions Used By Clinicians Education,Exercise Gross Lower Extremity Strength functional strength testing R LE: - pt able to state 3/3 THR precautions - supine R and L: SLR x 20 reps; hip abduction x 20 reps; - standing R and L: with 1 UE support: hip abduction and hip extension x 20 reps each reviewed HEP: issued and added standing hip abduction and extension; knee flexion with UE support Bed Transfer Comments sit to stand requires 1 UE use / stand to sit can perform without use of UE's 18 seat; able to state 3/3 THR precautions, but with sitting, R femur is adducted past midline; she stopped herself when she started to crossing her legs 2x during sessio
== END 2021-09-09 11:04 | disposition home or self-care (01) ==
LOC: ANHPT 14:00
PROVIDERS: PCP Family Medicine; Visit Provider Orthopaedic Surgery
DX: Z96.641 Presence of right artificial hip joint (principal); Z91.81 History of falling
CPT/HCPCS: 97110; 97116; 97161; 97530

== ENCOUNTER 2022-01-17 14:49 | Outpatient (CLI) | payer MEDICARE, BC, SELFPAY ==
--- NOTE | ~2022-01-17 | US_ITS ---
EXAMINATION: US pelvic complete DATE: 01/17/2022 16:01 INDICATION: Uterine prolapse. Comparison:No prior studies for comparison. TECHNIQUE: Multiple transabdominal and endovaginal sonographic images of the pelvis performed. FINDINGS: The uterus measures 6.1 x 1.5 x 2.2 cm. The endometrial complex measures 2 mm. The ovaries are not visualized. There is no free fluid in the pelvis. There are no abnormal masses seen on either side. IMPRESSION: 1. Unremarkable pelvic ultrasound. Reviewed, dictated and finalized at location A.
== END 2022-01-17 14:50 | disposition home or self-care (01) ==
LOC: ANHIMG 14:51
PROVIDERS: PCP Family Medicine; Visit Provider Nurse Practitioner Family
DX: N81.3 Complete uterovaginal prolapse (principal)
CPT/HCPCS: 76856

== ENCOUNTER 2022-08-24 12:02 | Outpatient (CLI) | payer MEDICARE, BC, SELFPAY ==
--- NOTE | 2022-08-24 13:01 | ECG_ITS ---
Measurements Intervals [place] Rate: 61 P: -5 [place]: 158 QRS: 38 QRSD: 81 T: 66 QT: 409 QTc: 415 Interpretive Statements SINUS RHYTHM BASELINE ARTIFACT- I, II, III, AVR, AVL, AVF, V1-V6 NORMAL ECG COMPARED TO ECG 05/30/2021 20:20:39 NO SIGNIFICANT CHANGES Electronically Signed On 08-24-2022 13:15:39 CDT by Sebas Benitez D.O.
[2022-08-24 13:29] LABS: Basophils Absolute Auto 0.1 K/mm3 (0.0-0.1); Basophils Percent Auto 1.2 % (0.2-1.2); Eosinophils Absolute Auto 0.1 K/mm3 (0-0.3); Eosinophils Percent Auto 2.1 % (0-4.4); Hematocrit 39.2 % (37.0-47.0); Hemoglobin 12.6 g/dL (12.0-15.0); Lymphocytes Absolute Auto 1.61 K/mm3 (0.9-3.2); Lymphocytes Percent Auto 31.3 % (18.3-44.2); Mean Corpuscular HGB Conc 32.1 g/dl (32-36); Mean Corpuscular Hemoglobin 27.9 pg (26-34); Mean Corpuscular Volume 86.7 fl (80-100); Mean Platelet Volume 9.4 fl (7.4-10.4); Monocytes Absolute Auto 0.5 K/mm3 (0.1-0.6); Monocytes Percent Auto 9.9 % (2.6-8.5); Neutrophils Absolute Auto 2.9 K/mm3 (1.3-6.7); Neutrophils Percent Auto 55.5 % (45.5-73.1); Platelet Count Result 241 k/mm3 (150-375); Red Blood Count 4.52 M/mm3 (4.2-5.4); Red Cell Distribution Width 14.7 % (11.5-14.5); White Blood Count 5.1 K/mm3 (4.5-10.0)
[2022-08-24 13:38] LABS: Alanine Aminotransferase 21 U/L (6-35); Albumin Level 4.5 g/dL (3.5-5.1); Alkaline Phosphatase 64 U/L (38-126); Anion Gap 8 mmol/L (8-16); Aspartate Amino Transferase 24 U/L (14-36); Bilirubin,Total 0.9 mg/dL (0.2-1.3); Blood Urea Nitrogen 14 mg/dL (7-17); Calcium 9.1 mg/dL (8.4-10.2); Carbon Dioxide 24 mmol/L (22-30); Chloride 107 mmol/L (98-107); Estimated Glomerular Filt Rate > 60; Glucose 115 mg/dL (65-110); Potassium 4.1 mmol/L (3.4-5.0); Sodium 139 mmol/L (137-145)
[2022-08-24 13:49] LABS: Prothrombin Time 13.4 Seconds (11.1-14.7)
[2022-08-24 13:50] LABS: Partial Thromboplastin Time 30.2 SECONDS (22.3-36.8)
== END 2022-08-24 12:03 | disposition home or self-care (01) ==
LOC: ANHSURGERY 12:08
PROVIDERS: PCP Family Medicine; Visit Provider Urology
DX: Z01.812 Encounter for preprocedural laboratory examination (principal); Z01.810 Encounter for preprocedural cardiovascular examination; N81.4 Uterovaginal prolapse, unspecified
CPT/HCPCS: 36415; 80053; 85025; 85610; 85730; 86850; 86900; 86901; 93005

== ENCOUNTER 2022-09-01 01:46 | Day surgery (SDC) | payer MEDICARE, BC, SELFPAY ==
[2022-08-24 12:36] VITALS: BMI 20.9
--- NOTE | 2022-08-24 12:39 | PC.NURSE ---
Report to the Outpatient Waiting Room, entrance under the green pavilion located off [facility], at time __0615 on date _09/01/22 . Planned Procedure Time: __814 . Time changes happen often and if your time is changed the preop area will call you the afternoon before. - You and your visitor will be asked to self-screen and do not enter if you have any COVID symptoms. - A mask is optional within the hospital at this time. Patients may have clear liquids (water, carbonated beverages, clear teas, apple juice) until 3 hours prior to surgery with a maximum of 20 ounces. - No food from midnight until time of surgery - Infants may have breast milk until 4 hours before surgery, infant formula 6 hours prior to surgery. - Children will be allowed to drink immediately following surgery. If applicable, please bring a bottle or sippy cup to assist with drinking. Juice, water, soda, and popsicles are readily available. For infants on formula, please bring formula the day of surgery. Pacifiers are allowed. Take the following medications with a SIP of water the morning of surgery: ___CITALOPRAM, DO NOT STOP ANY OF YOUR OTHER PRESCRIPTION MEDICATIONS PRIOR TO SURGERY ?EXCEPT THE FOLLOWING Medications to discontinue per physician __PT STATES HOLD ASPIRIN 7 DAYS PRE OP PER DR BRICENO.LAST DOSE 08/24/22. ALL VITAMINS/SUPPLEMENTS 3 DAYS PRE OP .LAST DOSE 08/28/22 Please no make-up, nail hebrew, hairspray, perfume, deodorant, or body powder the day of surgery. No jewelry (including any body piercings) or valuables the day of surgery, leave them at home. Please take a shower or bath the night before, or the morning of, surgery with an antibacterial soap. Wear comfortable, loose fitting clothing. Children are encouraged to wear pajamas. - Jewelry must be removed prior to entering the operating room. Rings and piercings that are not removed may be cut off. - The hospital will not accept responsibility for valuables. - Please leave all valuables, including medications, at home the day of surgery. If you are going home after surgery, a licensed student truck driver must drive you home. - NO public transportation without another adult if you receive anesthesia. - We recommend that an adult stay with you for 24 hours following discharge. - We also recommend that you do not drive, make important decision, drink alcoholic beverages, or take any drugs that were not prescribed by your health care provider for at least 24 hours after your discharge time. For Pediatric surgeries, we recommend two adults accompany the child home. Follow any additional instructions given to you from your surgeon. If you or anyone in your household have experienced Covid symptoms in the past week, please notify your surgeon or the nurse liaison at the phone number below for possible testing. VERBAL AND WRITTEN instructions given to _PATIENT and asked if any additional questions and then verbalized understanding. Patient advised to call surgeon office or pre surgery nurse liaison [phone] if any additional questions.
[2022-08-24 13:01] VITALS: BP 143/62; PULSE 70; RESP 18; TEMP 36.7; O2SAT 100
--- NOTE | 2022-08-26 11:05 | PM.IMHP ---
H&P: HPI History of Present Illness Date/Time: 08/26/22 11:05 Chief Complaint: POP Narrative: utreine prolpase. normal EM. not sexually active. desires surgical procedure Review of Systems Review of Systems: All systems reviewed & are unremarkable except as noted in HPI and below PMFSH Past Medical History Medical History Allergic rhinitis Anxiety Arthritis Basal cell carcinoma (BCC) of [place] Diabetes mellitus GERD (gastroesophageal reflux disease) Hyperlipidemia Hypertension Subcapital fracture of neck of right femur Surgical History Surgical History History of appendectomy History of lumpectomy of left breast With cystic pathology S/P hip replacement right bipolar replacement May 31, 2021 Status post cataract extraction of both eyes with insertion of intraocular lens Family History Family History Father , 93 years old CHF (congestive heart failure) Heart disease Mother , 98 years old Hypertension Sibling , Age greater than 70 Hypertension Aortic aneurysm and dissection Cerebrovascular accident Other Depression Thyroid disorder Grandparent Heart disease Social History Social History Social History: Patient has been since 2019. She lives with her 240 8-year-old daughters who are selectively mute. She reports that her daughters are very intelligent but do not speak. She would wish her daughters to be her surrogate decision makers if she was unable to make her own decisions. She reports her daughters communicate via writing. 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 She is a lifelong nonsmoker. She does drink alcohol on occasion in moderation. She had a glass of wine on the night of the . She is independent activities of daily living. Code status: Full code. She has advanced directives in place. Primary care physician: Dr. Miracle Baldwin Smoking status: Never smoker Second hand tobacco smoke exposure: No Alcohol intake: never Drinks per week: 1 Alcohol use details: occasional use Substance use: never Living arrangements: with family Occupation/Education: retired Gender identity (if verbalized by the patient): Female Spiritual care concerns: No Meds Home Medications and Allergies Home Medications Medication Instructions Recorded Confirmed Type cetirizine 10 mg capsule (All Day 10 mg PO DAILY 10/26/20 08/24/22 History Allergy (cetirizine)) citalopram 40 mg tablet 40 mg PO DAILY 10/26/20 08/24/22 History empagliflozin 25 mg tablet 25 mg PO DAILY 10/26/20 08/24/22 History (Jardiance) losartan 100 mg tablet 100 mg PO DAILY 10/26/20 08/24/22 History metformin 500 mg tablet 500 mg PO BID 10/26/20 08/24/22 History pravastatin 20 mg tablet 20 mg PO HS 10/26/20 08/24/22 History fluticasone propionate 50 2 spray intranasal DAILY 05/30/21 08/24/22 History mcg/actuation nasal spray,suspension multivit-iron 18 mg-folic acid 400 1 tablet PO DAILY 05/30/21 08/24/22 History mcg-calcium 450 mg-minerals tablet (One Daily Women's) calcium carbonate 500 mg-vitamin 500 mg PO BIDWM #20 tabs 04/28/22 08/24/22 Rx D3 5 mcg (200 unit) tablet (Oyster Shell Calcium-Vitamin D3) pantoprazole 20 mg tablet,delayed 20 mg PO QAM #30 tabs 04/28/22 08/24/22 Rx release (Protonix) aspirin 81 mg chewable tablet 81 mg PO HS 08/24/22 08/24/22 History (Children's Aspirin) oxybutynin chloride 5 mg tablet 5 mg PO HS 08/24/22 08/24/22 History Allergies Allergy/AdvReac Type Severity Reaction Status Date / Time No Known Allergies Allergy Verified 08/24/22 12:15 Exam Narrative: apical prolapse at +6 Assessment and Plan Assessment and plan (1) Uterine prolapse:
--- NOTE | 2022-08-31 09:44 | WPDANESEPPF ---
Anes - Initial Pre Proc Eval Procedure: Operation Date: 09/01/22 08:15 Proposed Procedures p Colpocleisis - Karl Logan MD Date/Time: 08/31/22 09:44 Surgeon: Karl Logan MD Pre Op Diagnosis: complete uterine prolapse Patient Data Age: 82 Gender: F Height: 1.68 m Weight: 58.9 kg Last Vital Signs Temp 36.7 C 08/24/22 13:01 Pulse 70 08/24/22 13:01 Resp 18 08/24/22 13:01 BP 143/62 H 08/24/22 13:01 Pulse Ox 100 08/24/22 13:01 O2 Del Method Room Air 08/24/22 13:01 Allergies Allergy/AdvReac Type Severity Reaction Status Date / Time No Known Allergies Allergy Verified 08/24/22 12:15 Home Medications Medication Instructions Recorded Confirmed Type cetirizine 10 mg capsule (All Day 10 mg PO DAILY 10/26/20 08/24/22 History Allergy (cetirizine)) citalopram 40 mg tablet 40 mg PO DAILY 10/26/20 08/24/22 History empagliflozin 25 mg tablet 25 mg PO DAILY 10/26/20 08/24/22 History (Jardiance) losartan 100 mg tablet 100 mg PO DAILY 10/26/20 08/24/22 History metformin 500 mg tablet 500 mg PO BID 10/26/20 08/24/22 History pravastatin 20 mg tablet 20 mg PO HS 10/26/20 08/24/22 History fluticasone propionate 50 2 spray intranasal DAILY 05/30/21 08/24/22 History mcg/actuation nasal spray,suspension multivit-iron 18 mg-folic acid 400 1 tablet PO DAILY 05/30/21 08/24/22 History mcg-calcium 450 mg-minerals tablet (One Daily Women's) calcium carbonate 500 mg-vitamin 500 mg PO BIDWM #20 tabs 04/28/22 08/24/22 Rx D3 5 mcg (200 unit) tablet (Oyster Shell Calcium-Vitamin D3) pantoprazole 20 mg tablet,delayed 20 mg PO QAM #30 tabs 04/28/22 08/24/22 Rx release (Protonix) aspirin 81 mg chewable tablet 81 mg PO HS 08/24/22 08/24/22 History (Children's Aspirin) oxybutynin chloride 5 mg tablet 5 mg PO HS 08/24/22 08/24/22 History Patient hx anesthesia problems: none Family hx anesthesia problems: none Results Review: All pre-operative results and documents have been reviewed as part of the pre-operative evaluation. [facility] Past Medical History Medical History Allergic rhinitis Anxiety Arthritis Basal cell carcinoma (BCC) of ala nasi Diabetes mellitus GERD (gastroesophageal reflux disease) Hyperlipidemia Hypertension Subcapital fracture of neck of right femur Surgical History Surgical History History of appendectomy History of lumpectomy of left breast With cystic pathology S/P hip replacement right bipolar replacement May 31, 2021 Status post cataract extraction of both eyes with insertion of intraocular lens Family History Family History Father , 93 years old CHF (congestive heart failure) Heart disease Mother , 98 years old Hypertension Sibling , Age greater than 70 Hypertension Aortic aneurysm and dissection Cerebrovascular accident Other Depression Thyroid disorder Grandparent Heart disease Social History Social History Social History: Patient has been since 2019. She lives with her 240 8-year-old daughters who are selectively mute. She reports that her daughters are very intelligent but do not speak. She would wish her daughters to be her surrogate decision makers if she was unable to make her own decisions. She reports her daughters communicate via writing. 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 She is a lifelong nonsmoker. She does drink alcohol on occasion in moderation. She had a glass of wine on the night of the . She is independent activities of daily living. Code status: Full code. She has advanced directives in place. Primary care physician: Dr. Miracle Baldwin Smoking status: Never smoker Second hand tobacco smoke exposure: No Alc
[2022-09-01] VITALS (10 sets, daily range): BP systolic 119–164; BP diastolic 51–94; PULSE 65–78; RESP 13–25; TEMP 36.1–36.9; O2SAT 97–100
--- NOTE | 2022-09-01 07:18 | WPDHPUPDATE1 ---
History and Physical Update Update Date/Time: 09/01/22 07:18 History and Physical has been reviewed, including an updated exam of the patient. There are NO changes in the patient's condition. Risks, benefits, and alternatives have been discussed and questions answered. Patient agrees to proceed with procedure.
[2022-09-01 07:20] LABS: Glucose Point of Care 98 mg/dl (65-105)
[2022-09-01] MEDS: LACTATED RINGERS 1,000 ML 30 ML IV CONT ×2 (07:51→10:53)
[2022-09-01] MEDS: ceFAZolin 2 GM/D5W 50 ML 2 GM/50 ML BAG IVPB (08:37)
[2022-09-01] MEDS: BUPIVACAINE/EPINEPHRINE 0.25% 10 ML VIAL 20 ML INFILTRATE (09:06)
--- NOTE | 2022-09-01 10:16 | W.PM.PROC2 ---
Procedure Note - Detailed Date of Procedure 09/01/22 Pre-op Diagnosis complete uterine prolapse Post-op Diagnosis Same Procedure Performed Cystocele repair, rectocele repair, perineorrhaphy, LeFort colpocleisis Surgeon Karl Logan MD Anesthesia General Indications This will significant uterine prolapse. She is not sexually active and has no plans on being. She does not have stress incontinence. She presents for anterior/posterior repair with LeFort colpocleisis. She understands the risks of bleeding, infection, damage surrounding organs, damage to the urinary tract, damage to the bowel, fistula formation, recurrence of prolapse, postoperative voiding dysfunction including concern retention, hip and leg pain, inability to have penetrative intercourse. She agrees to proceed Endometrial thickness is 2 mm Findings Stage IV uterine prolapse Description of Procedure She was correctly identified. Informed consent obtained. From the operating room. She was given general anesthesia. She was placed in dorsal lithotomy position. She was prepped and draped sterile fashion. Time-out performed. I placed a [place] retractor. I placed Cook catheter. I examined the prolapse. She had stage IV uterine prolapse. I made a 2 rectangle shaped areas on the anterior and posterior vaginal wall. I anesthetized the posterior vaginal wall. I removed the mucosa. I left the underlying fascial structures. I then did the same on the anterior vaginal wall. I removed the mucosa leaving the underlying fascial structures. I took great care not to injure underlying organs. I then performed a LeFort type colpocleisis leaving drainage tunnels. I plicated the fascial tissues in a sense performing a cystocele repair and a rectocele repair as well as LeFort colpocleisis totally reducing the pelvic organ prolapse. Again I left to drainage tunnels laterally. Once I was happy with prolapse reduction I closed the mucosa with interrupted horizontal mattress sutures. I obtained hemostasis as well. Of note the tissues were quite atrophic. I then turned my attention towards the perineum. She had thin perineal tissues. I performed a large perineorrhaphy. I anesthetized the perineum. I removed a segment of indio-shaped tissues. I performed a perineal. Interrupted 0 Vicryl sutures. This completed the perineal repair. I closed the mucosa with a running 2-0 Vicryl suture. I again assured hemostasis. I was very happy with prolapse reduction. On cystoscopy she had moderate trabeculations. There was no surgical artifact in the bladder or urethra. There was no damage to the bladder urethra. There was no tumors. Both ureters were seen to excrete clear yellow urine. I left the Cook catheter out. I placed vaginal packing for 1 hour. She was then awakened transferred to PACU in stable condition.
[2022-09-01 10:18] LABS: Glucose Point of Care 112 mg/dl (65-105)
[2022-09-01] MEDS: fentaNYL CITRATE INJ (*CRX) 100 MCG/2 ML VIAL 25 MCG IV PUSH ×4 (10:33→11:06)
--- NOTE | 2022-09-01 11:19 | SUR.PHASEI ---
Vaginal packing removed at 1115 by RN.
[2022-09-01] MEDS: oxyCODONE HCL (*CRX) 5 MG TAB IR PO (12:18)
== END 2022-09-01 12:52 | disposition home or self-care (01) ==
PROVIDERS: PCP Family Medicine; Visit Provider Urology
PROC: (CPT 57120; principal; 2022-09-01 08:15)
DX: N81.3 Complete uterovaginal prolapse (principal); E11.9 Type 2 diabetes mellitus without complications; K21.9 Gastro-esophageal reflux disease without esophagitis; E78.5 Hyperlipidemia, unspecified; I10 Essential (primary) hypertension
CPT/HCPCS: 57260; 82948; A9270; J0690; J2405; J2704; J3010; J7030; J7120

== ENCOUNTER 2022-12-15 15:17 | Outpatient (CLI) | payer MEDICARE, BC, SELFPAY ==
--- NOTE | ~2022-12-15 | XR_ITS ---
EXAMINATION: XR thoracic spine 2V DATE: 12/15/2022 15:43 INDICATION: Thoracic spine fracture. TECHNIQUE: 3 views of thoracic spine were obtained. COMPARISON: CT cervical spine 05/30/2021 FINDINGS: There is kyphosis of thoracic spine. There is 16 degrees levoscoliosis of thoracolumbar spi ne. There is mild chronic height loss of T7 and T12 vertebral bodies. There is mildly decreased disc height at multiple levels. There is mildly decreased disc height at T11-T12 and severely decreased di sc height at T12-L1. There are bridging endplate osteophytes at multiple levels in the spine, consist ent with diffuse idiopathic skeletal hyperostosis (DISH). IMPRESSION: 1. Mild height loss of T7 and T12 vertebral bodies, likely chronic. 2. DISH. 3. Spondylosis, worst near thoracolumbar junction. Reviewed, dictated and finalized at location E.
== END 2022-12-15 15:18 | disposition home or self-care (01) ==
PROVIDERS: PCP Family Medicine; Visit Provider Family Medicine
DX: S22.009A Unspecified fracture of unspecified thoracic vertebra, initial encounter for closed fracture (principal); X58.XXXA Exposure to other specified factors, initial encounter; M47.896 Other spondylosis, lumbar region; M48.14 Ankylosing hyperostosis [Forestier], thoracic region
CPT/HCPCS: 72070

== ENCOUNTER 2023-07-15 08:50 | Inpatient (IN) | payer MEDICARE, BC, SELFPAY ==
[2023-07-15] VITALS (29 sets, daily range): BP systolic 133–220; BP diastolic 44–141; PULSE 58–77; RESP 16–33; TEMP 36.3–36.9; O2SAT 90–100; BMI 23.6
--- NOTE | ~2023-07-15 | XR_ITS ---
XR chest 1V DATE: 07/15/2023 10:20 INDICATION: Fall TECHNIQUE: Supine AP view COMPARISON: None FINDINGS: Normal heart size. Aortic arch calcification, minimal aortic tortuosity. No hilar or medias tinal enlargement. No pulmonary infiltrate or consolidation, pleural effusion or pulmonary vascular congestion or pneumo thorax. Comminuted fracture of the right humeral head and surgical neck.. Diffuse idiopathic skeletal hyperostosis of the thoracic spine. Osteopenia. IMPRESSION: Comminuted fracture of the right humeral head surgical neck No active cardiopulmonary disease Aortic atherosclerosis Reviewed, dictated and finalized at location A.
--- NOTE | ~2023-07-15 | XR_ITS ---
XR humerus RT DATE: 07/15/2023 10:20 INDICATION: Right arm pain following fall TECHNIQUE: 2 views COMPARISON: 07/15/2023 right shoulder FINDINGS: There is a comminuted fracture of the humeral head and surgical neck, with minimal medial d isplacement of the distal fragment. Inferior subluxation at the glenohumeral joint. Osteopenia. IMPRESSION: Comminuted fracture of humeral head and neck Osteopenia Reviewed, dictated and finalized at location A.
--- NOTE | ~2023-07-15 | XR_ITS ---
XR shoulder RT min 2V DATE: 07/15/2023 10:20 INDICATION: Fall. Right shoulder injury, pain TECHNIQUE: 4 views COMPARISON: None FINDINGS: There is diffuse osteopenia. There is a comminuted fracture of the humeral head and surgical neck with mild medial displacement of the major distal fracture fragment. There is anteroinferior subluxation at the glenohumeral joint. Normal alignment at the acromioclavicular joint. Osteopenia. Diffuse idiopathic skeletal hyperostosis of the thoracic spine. IMPRESSION: Comment fracture of humeral head and surgical neck Reviewed, dictated and finalized at location A.
--- NOTE | ~2023-07-15 | CT_ITS ---
EXAMINATION: CT brain wo con DATE: 07/15/2023 10:25 INDICATION: Ground-level fall. Head injury. TECHNIQUE: Computed tomography (CT) of the head was performed without intravenous contrast. The mA wa s adjusted according to patient size. Iterative reconstruction technique was employed. Exam dose: 60 5.33 mGy-cm total exam DLP. COMPARISON: May 30, 2021 CT brain FINDINGS: Bilateral vertebral artery calcifications, basilar artery and prominent bilateral carotid s iphon internal carotid artery calcifications. Moderate cerebellar and central and cortical cerebral atrophy. No intracranial mass lesion or hemorrhage, midline shift or mass effect or subdural or epidural hemat po is detected. The paranasal sinuses and mastoid air cells are normally developed and aerated. No fracture or bone destruction of the cranial vault. IMPRESSION: No skull fracture or acute intracranial finding Reviewed, dictated and finalized at Location A. Reviewed, dictated and finalized at location A.
--- NOTE | ~2023-07-15 | XR_ITS ---
XR forearm RT 2V DATE: 07/15/2023 10:20 INDICATION: Fall. Right arm pain TECHNIQUE: 2 views COMPARISON: None FINDINGS: Diffuse osteopenia. No fracture or dislocation, periosteal reaction or bone destruction. No rmal alignment at the elbow and wrist joints. Osteoarthritic changes are noted at the first carpometacarpal and included interphalangeal joints. IMPRESSION: Osteopenia Polyarticular osteoarthritis No fracture or dislocation Reviewed, dictated and finalized at location A.
--- NOTE | ~2023-07-15 | XR_ITS ---
XR hand RT min 3V DATE: 07/15/2023 10:20 INDICATION: Fall. Right hand injury, pain TECHNIQUE: 3 views COMPARISON: None FINDINGS: There is osteopenia. There is polyarticular osteoarthritis, including triscaphe, first carpometacarpal and multiple interp halangeal joints. No fracture, dislocation, periosteal reaction or bone destruction is detected. IMPRESSION: Osteopenia Polyarticular osteoarthritis No fracture or dislocation Reviewed, dictated and finalized at location A.
--- NOTE | 2023-07-15 09:55 | ED.FALL ---
HPI - Fall General Chief Complaint: Fall Stated Complaint: glf Time Seen by Provider: 07/15/23 09:13 Source: patient Mode of arrival: EMS Limitations: no limitations History of Present Illness HPI Narrative: This is a 83 year old female that presents to the ER for right arm pain after a fall today. Reports she was going to use the restroom and her walker buckled on her. She fell onto her right side. She hit her head. She did not lose consciousness. Reports since she has had right arm pain. Reports decreased ROM and swelling to the right shoulder. Denies numbness or weakness. Related Data Home Medications Medication Instructions Recorded Confirmed cetirizine 10 mg capsule (All Day 10 mg PO DAILY 10/26/20 10/12/22 Allergy (cetirizine)) citalopram 40 mg tablet 40 mg PO DAILY 10/26/20 10/12/22 empagliflozin 25 mg tablet 25 mg PO DAILY 10/26/20 10/12/22 (Jardiance) losartan 100 mg tablet 100 mg PO DAILY 10/26/20 10/12/22 metformin 500 mg tablet 500 mg PO BID 10/26/20 10/12/22 pravastatin 20 mg tablet 20 mg PO HS 10/26/20 10/12/22 fluticasone propionate 50 2 spray intranasal DAILY 05/30/21 10/12/22 mcg/actuation nasal spray,suspension multivit-iron 18 mg-folic acid 400 1 tablet PO DAILY 05/30/21 10/12/22 mcg-calcium 450 mg-minerals tablet (One Daily Women's) aspirin 81 mg chewable tablet 81 mg PO HS 08/24/22 10/12/22 (Children's Aspirin) nitrofurantoin 100 mg PO Q12H 10/12/22 10/12/22 monohydrate/macrocrystals 100 mg capsule (Macrobid) Allergies Allergy/AdvReac Type Severity Reaction Status Date / Time No Known Allergies Allergy Verified 07/15/23 11:34 Review of Systems Review of Systems: CONSTITUTIONAL: Denies fever EYES: Denies visual changes GASTROINTESTINAL: Denies vomiting MUSCULOSKELETAL: Reports joint pain, and myalgia. NEUROLOGIC: Denies numbness, or weakness. All systems reviewed & are unremarkable except as noted in HPI and below PMFSH Past Medical History Medical History Allergic rhinitis Anxiety Arthritis Basal cell carcinoma (BCC) of ala nasi Diabetes mellitus GERD (gastroesophageal reflux disease) Hyperlipidemia Hypertension Subcapital fracture of neck of right femur Surgical History Surgical History History of appendectomy History of lumpectomy of left breast With cystic pathology S/P hip replacement right bipolar replacement May 31, 2021 Status post cataract extraction of both eyes with insertion of intraocular lens Family History Family History Father , 93 years old CHF (congestive heart failure) Heart disease Mother , 98 years old Hypertension Sibling , Age greater than 70 Hypertension Aortic aneurysm and dissection Cerebrovascular accident Other Depression Thyroid disorder Grandparent Heart disease Social History Social History Social History: Patient has been since 2019. She lives with her 240 8-year-old daughters who are selectively mute. She reports that her daughters are very intelligent but do not speak. She would wish her daughters to be her surrogate decision makers if she was unable to make her own decisions. She reports her daughters communicate via writing. 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 She is a lifelong nonsmoker. She does drink alcohol on occasion in moderation. She had a glass of wine on the night of the . She is independent activities of daily living. Code status: Full code. She has advanced directives in place. Primary care physician: Dr. Miracle Baldwin Caffeine-occasional soda Smoking status: Never smoker Second hand tobacco smoke exposure: No Alcohol intake: never Drinks per week: 1 Alcohol use details: occ
[2023-07-15] MEDS: HYDROcodone/acetaminophen (*CRX) 5-325 MG TABLET 1 TAB PO (10:04)
[2023-07-15] MEDS: ONDANSETRON INJ 4 MG/2 ML VIAL IV PUSH (11:33)
[2023-07-15] MEDS: MORPHINE SULFATE (*CRX) 4 MG/ML INJ IV PUSH (11:33)
[2023-07-15 11:46] LABS: Basophils Absolute Auto 0.1 K/mm3 (0.0-0.1); Basophils Percent Auto 0.6 % (0.2-1.2); Eosinophils Percent Auto 0.2 % (0-4.4); Hemoglobin 13.2 g/dL (12.0-15.0); Immature Granulocyte Absolute 0.03 K/mm3 (0.00-0.031); Immature Granulocyte Percent A 0.3 % (0-0.5); Lymphocytes Absolute Auto 0.78 K/mm3 (0.9-3.2); Lymphocytes Percent Auto 8.9 % (18.3-44.2); Mean Corpuscular Hemoglobin 28.9 pg (26-34); Mean Corpuscular Volume 87.5 fl (80-100); Mean Platelet Volume 9.7 fl (7.4-10.4); Monocytes Absolute Auto 0.4 K/mm3 (0.1-0.6); Neutrophils Absolute Auto 7.5 K/mm3 (1.3-6.7); Platelet Count Result 243 k/mm3 (150-375); Red Blood Count 4.57 M/mm3 (4.2-5.4); Red Cell Distribution Width 13.5 % (11.5-14.5); White Blood Count 8.8 K/mm3 (4.5-10.0)
[2023-07-15 13:15] LABS: Anion Gap 9 mmol/L (4-12); Blood Urea Nitrogen 16 mg/dL (7-17); Calcium 9.6 mg/dL (8.4-10.2); Carbon Dioxide 16 mmol/L (22-30); Chloride 113 mmol/L (98-107); Estimated CRCL calculation 50 ml/min; Estimated Glomerular Filt Rate > 60; Glucose 139 mg/dL (65-110); Potassium 3.5 mmol/L (3.4-5.0); Sodium 138 mmol/L (137-145)
--- NOTE | 2023-07-15 14:05 | ADMGEN ---
This patient, Rosalinda Thornton, was admitted to 3 Med Surg Room 309-01. Patient/family oriented to hospital policies and general routines including ID bracelet, bed and alarms, visiting hours, pain management, procedures, bathroom and other care routines, personal items, smoking policy, room service/diet, and visiting hours. Information on how to activate the Rapid Response Team has been discussed. Patient/Family are encouraged to report perceived risks to care and to ask questions if they do not understand what they are told or what they should do.
--- NOTE | 2023-07-15 14:44 | PM.IMHP ---
H&P: HPI History of Present Illness Date/Time: 07/15/23 13:30 Chief Complaint: Right shoulder pain after fall. Narrative: This is an 83-year-old female with hypertension, hyperlipidemia, type 2 diabetes mellitus who presented to the emergency department via EMS from home for evaluation of right shoulder pain after a fall. The patient provides the following history. Patient reports having a ground level fall while getting out of bed and trying to reach for her walker to go to the bathroom. She landed on her right side and did hit her head on the carpet without loss of consciousness. She had immediate pain in her right arm and shoulder and was unable to get herself up, even with the help of her daughters. She denies syncope, near syncope, focal weakness, paresthesias, visual changes, facial droop, fever, chills, sweats, headache, chest pain, pleuritic pain, shortness of breath, nausea, vomiting, diarrhea, and dysuria. In the ED: Vital signs were stable on arrival. Radiographs showed a comminuted fracture of the right humeral head and surgical neck. As she lives alone and ambulates with a walker, she is being admitted for PT/OT and probable rehab placement. Review of Systems Review of Systems: Twelve systems were reviewed and are negative except for as per HPI. [facility] Past Medical History Medical History Allergic rhinitis Anxiety Arthritis Basal cell carcinoma (BCC) of ala nasi Gastroesophageal reflux disease Hyperlipidemia Hypertension Type 2 diabetes mellitus Surgical History Surgical History History of appendectomy History of cataract extraction with lens replacement History of lumpectomy of left breast With cystic pathology 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er , 98 years old Hypertension Sibling , Age greater than 70 Hypertension Aortic aneurysm and dissection Cerebrovascular accident Other Depression Thyroid disorder Grandparent Heart disease Social History Social History Social History: Surrogate medical decision maker: Mady Thornton, daughter. According to the patient her 2 daughters are selectively mute and communicate via writing. Code status: Full code. Smoking status: Never smoker Second hand tobacco smoke exposure: No Alcohol intake: never Drinks per week: 1 Alcohol use details: occasional use Substance use: never Substance use type: does not use Do You Feel Safe in your Home?: Yes Lack of Transportation: No Lack of Food: Never True Current Housing: I Have Housing Concerned About Future Housing: No Difficulty Paying Gas/Electric Bills: No Difficulty Paying for Meds: No Currently Unemployed: No Education: High School Diploma/GED Difficulty w/ Childcare or Family Care: No Living arrangements: with family Additional living arrangements comments: . Lives alone but her 2 daughters spend the majority of the time with her. Occupation/Education: retired Additional occupation/education comments: [employer]. Spiritual care concerns: No Meds Home Medications and Allergies Home Medications Medication Instructions Recorded Confirmed Type cetirizine 10 mg capsule (All Day 10 mg PO DAILY 10/26/20 07/15/23 History Allergy (cetirizine)) citalopram 40 mg tablet 40 mg PO DAILY 10/26/20 07/15/23 History empagliflozin 25 mg tablet 25 mg PO DAILY 10/26/20 07/15/23 History (Jardiance) losartan 100 mg tablet 100 mg PO DAILY 10/26/20 07/15/23 History metformin 500 mg tablet 500 mg PO BID 10/26/20 07/15/23 History pravastatin 20 mg tablet 20
--- NOTE | 2023-07-15 15:54 | PCPTNOTE ---
Pt has humerus fracture with ortho consult ordered and not yet performed. Per dept policy, will await completion of consult to perform therapy evaluation
--- NOTE | 2023-07-15 16:23 | PCOTNOTE ---
Ortho consultation pending before completion of OT evaluation. Will follow.
[2023-07-15 16:36] LABS: Glucose Point of Care 134 mg/dl (65-105)
[2023-07-15] MEDS: traMADol HCL (*CRX) 25 MG TABLET PO (17:21)
[2023-07-15 20:50] LABS: Glucose Point of Care 187 mg/dl (65-105)
[2023-07-15] MEDS: ASPIRIN 81 MG CHEWABLE TABLET PO (21:37)
[2023-07-15] MEDS: PRAVASTATIN SODIUM 20 MG TABLET PO (21:37)
[2023-07-16 05:54] VITALS: BP 135/61; PULSE 78; RESP 18; TEMP 36.4; O2SAT 99
[2023-07-16 06:58] LABS: Hematocrit 35.8 % (37.0-47.0); Hemoglobin 11.5 g/dL (12.0-15.0); Mean Corpuscular HGB Conc 32.1 g/dl (32-36); Mean Corpuscular Hemoglobin 28.8 pg (26-34); Mean Corpuscular Volume 89.7 fl (80-100); Mean Platelet Volume 9.5 fl (7.4-10.4); Platelet Count Result 230 k/mm3 (150-375); Red Blood Count 3.99 M/mm3 (4.2-5.4); White Blood Count 7.9 K/mm3 (4.5-10.0)
[2023-07-16 07:14] LABS: Alanine Aminotransferase 13 U/L (6-35); Albumin Level 4.1 g/dL (3.5-5.1); Alkaline Phosphatase 54 U/L (38-126); Anion Gap 9 mmol/L (4-12); Aspartate Amino Transferase 17 U/L (14-36); Bilirubin,Total 1.2 mg/dL (0.2-1.3); Blood Urea Nitrogen 18 mg/dL (7-17); Calcium 8.9 mg/dL (8.4-10.2); Carbon Dioxide 18 mmol/L (22-30); Chloride 108 mmol/L (98-107); Estimated CRCL calculation 50 ml/min; Estimated Glomerular Filt Rate > 60; Glucose 131 mg/dL (65-110); Magnesium 2.3 mg/dL (1.6-2.3); Potassium 3.8 mmol/L (3.4-5.0); Sodium 135 mmol/L (137-145)
--- NOTE | 2023-07-16 07:38 | PCPTNOTE ---
Attempted PT evaluation, ortho consult/recommendations pending at this time. Will follow.
[2023-07-16 08:00] VITALS: PULSE 78; RESP 18; O2SAT 99
[2023-07-16 08:25] LABS: Glucose Point of Care 155 mg/dl (65-105)
[2023-07-16] MEDS: CALCIUM/VITAMIN D 500 MG/5 MCG (200 I.U.) TABLET PO ×2 (09:03→18:02)
[2023-07-16] MEDS: THERAPEUTIC MULTIVITAMINS/MINERALS TAB (*BKC) 1 TABLET PO (09:03)
[2023-07-16] MEDS: EMPAGLIFLOZIN 25 MG TABLET PO (09:03)
[2023-07-16] MEDS: LORATADINE 10 MG TABLET PO (09:03)
[2023-07-16] MEDS: CITALOPRAM HYDROBROMIDE 20 MG TABLET 40 MG PO (09:03)
[2023-07-16] MEDS: LOSARTAN POTASSIUM 100 MG TABLET PO (09:03)
--- NOTE | 2023-07-16 10:07 | PM.IMPN ---
Progress Note: A&P Assessment and Plan (1) Closed right humeral fracture: Qualifiers: Encounter type: initial encounter Fracture morphology: unspecified fracture morphology Humerus Location: proximal Qualified Code(s): S42.201A - Unspecified fracture of upper end of right humerus, initial encounter for closed fracture Code(s): S42.301A - Unspecified fracture of shaft of humerus, right arm, initial encounter for closed fracture Status: Acute Assessment and Plan: 07/16/23: X-ray of right humerus showing comminuted fracture of femoral head and neck, osteopenia X-ray of right shoulder showing diffuse osteopenia, comminuted fracture of the humeral head surgical neck with mild medial displacement of the major distal fracture, anteroinferior subluxation at glenohumeral joint, normal alignment of AC joint Chest x-ray showing comminuted fracture right humeral head and surgical Continue with pain control Ortho consulted and recommending conservative treatment with a shoulder immobilizer, pain medication and ice\ PT and OT ordered (2) Fall from ground level: Code(s): W18.30XA - Fall on same level, unspecified, initial encounter Status: Acute Assessment and Plan: 07/16/23: Patient sustained a fall while getting out of bed and trying to reach for her walker to go the bathroom. She landed on her right side did hit her head on the carpet without loss of consciousness. See above (3) Hypertension: Code(s): I10 - Essential (primary) hypertension Status: Acute Assessment and Plan: 07/16/23: B/P ranging 135/61-164/64 Continue Losartan (4) Type 2 diabetes mellitus: Code(s): E11.9 - Type 2 diabetes mellitus without complications Status: Acute Assessment and Plan: 07/16/23: BG ranging 131-155 Hgb A1C on 06/04/2021 was 7.1, we will repeat hemoglobin A1c in the morning AC/HS accu checks. Jardiance restarted Low dose SSI started hypoglycemia protocol ordered (5) Hyperlipidemia: Code(s): E78.5 - Hyperlipidemia, unspecified Status: Acute Assessment and Plan: 07/16/23: Continue pravastatin Time Spent With Patient Time with patient: 25 - 35 minutes Subjective Date/time seen: 07/16/23 10:07 Interval history: This is an 83-year-old female who presented to the hospital on 07/15/2023 with complaint of right shoulder pain after a fall. Workup in the hospital include an x-ray of right humerus which showed a comminuted fracture of the humeral head and neck, osteopenia. X-ray of right shoulder showing fracture of the humeral head and surgical neck. Chest x-ray showing comminuted fracture of the right humeral and surgical neck, no acute cardiopulmonary disease. Head CT was negative for any acute intracranial findings. Right hand and right forearm x-ray showing diffuse osteopenia, polyarticular osteoarthritis, no fracture or dislocation. Initial labs essentially unremarkable other than a bicarb level of 16. Patient was given morphine and Zofran in the ED. ortho was consulted. On exam today patient is alert oriented x3, lying in the bed. She is currently in a arm sling. Patient endorses out of 10 pain in her right shoulder. Patient denies any fever, chills, nausea, vomiting, diarrhea, abdominal pain, shortness a breath, chest pain, headache, lightheadedness, dizziness. Labs today show Hgb of 11.5, sodium 135, bicarb 18, blood sugar ranging 131-155, magnesium was 2.3, liver enzymes are normal. Ortho to come and evaluate today. Review of Systems Review of Systems: All systems reviewed & are unremarkable except as noted in HPI and below Constitutional: Constitutional: Reports as per HPI and Reports no additional constitutional complaints Eyes: Eyes: Reports as per HPI and Reports no additional eye complaints ENT: Reports system reviewed and no additional complaints, except as documented and Reports as per HPI Cardiovascular: Cardiovascular: R
[2023-07-16 12:04] LABS: Glucose Point of Care 109 mg/dl (65-105)
--- NOTE | 2023-07-16 12:22 | PM.CNOR ---
Assessment and Plan Assessment and plan (1) Closed right humeral fracture: Qualifiers: Encounter type: initial encounter Fracture morphology: other fracture Humerus Location: proximal Fracture alignment: displaced Qualified Code(s): S42.291A - Other displaced fracture of upper end of right humerus, initial encounter for closed fracture Code(s): S42.301A - Unspecified fracture of shaft of humerus, right arm, initial encounter for closed fracture Status: Acute Assessment and Plan: Comminuted 4 part fracture of the right proximal humerus. Relatively good alignment. Humeral head located. Patient fall at home yesterday morning. Still with significant pain with sling in place. New patient evaluation status post injury Right shoulder. The history, physical exam and radiographs reviewed with the patient. Type of fracture discussed in detail. Treatment options including operative and non operative treatment reviewed. Risks, benefits and alternatives of each treatment discussed in detail. The patient has declined surgical treatment. Risks of treatment decision discussed in detail. Potential problems with displacement of the fracture, loss of alignment, nonunion, malunion and dysfunction discussed in detail. The patient's questions were answered. They verbalized understanding and agreement. Conservative treatment with immobilization, ice. still having a lot of pain the sling. Will add the torso strap from shoulder immobilizer to help with stabilization. Reviewed pain medication regimen. Will add [place] for moderate pain and morphine for breakthrough pain. PT/OT. Will probably require placement. History of Present Illness HPI Consult date: 07/16/23 Requesting physician: Karen Mendoza PA-C Chief complaint: Right Humerus Fracture Narrative: 83-year-old woman who lives at home with her daughters, lost her balance and fell onto right arm. Shoulder pain. Normally ambulates with walker. Unable to use walker due to shoulder pain. Brought the emergency room and found to have right proximal humerus fracture. Denies numbness or tingling. Denies head or neck injury. Denies loss of consciousness. No prior problems with the shoulder or arm. Review of Systems Constitutional: Constitutional: Denies fever(s) Eyes: Eyes: Denies blurry vision ENT: Reports Normal hearing present Cardiovascular: Cardiovascular: Denies chest pain and Denies dyspnea Respiratory: Respiratory: Denies dyspnea and Denies wheezing Gastrointestinal: Gastrointestinal: Denies abdominal pain Genitourinary: Genitourinary: Denies urinary urgency Musculoskeletal: Musculoskeletal: Reports as per HPI and Denies numbness Integumentary/Breasts: Skin/Breast: Denies changing lesions and Denies sores Neurologic: Reports Normal hearing present, Denies behavioral changes, Denies confusion, Denies numbness and Denies convulsions Psychiatric: Psychiatric: Denies behavioral changes, Denies confusion and Denies hallucinations Endocrine: Endocrine: Denies heat intolerance Hematologic/Lymphatic: Hematologic/Lymphatic: Denies easy bleeding Allergic/Immunologic: Allergic/Immunologic: Denies wheezing PMFSH Past Medical History Medical History Allergic rhinitis Anxiety Arthritis Basal cell carcinoma (BCC) of [place] Gastroesophageal reflux disease Hyperlipidemia Hypertension Type 2 diabetes mellitus Surgical History Surgical History History of appendectomy History of cataract extraction with lens replacement History of lumpectomy of left breast With cystic pathology 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
--- NOTE | 2023-07-16 13:38 | PCPTNOTE ---
Attempted PT evaluation, pt's immobilizer not present. Will follow.
[2023-07-16] MEDS: HYDROcodone/acetaminophen (*CRX) 5-325 MG TABLET 1 TAB PO ×2 (13:53→20:46)
[2023-07-16 14:02] VITALS: BP 132/58; PULSE 77; RESP 17; TEMP 36.5; O2SAT 96
[2023-07-16 16:28] LABS: Glucose Point of Care 167 mg/dl (65-105)
[2023-07-16 20:05] VITALS: BP 151/46; PULSE 72; RESP 18; TEMP 36.6; O2SAT 100
[2023-07-16 20:13] LABS: Glucose Point of Care 200 mg/dl (65-105)
[2023-07-16] MEDS: PRAVASTATIN SODIUM 20 MG TABLET PO (20:47)
[2023-07-16] MEDS: ASPIRIN 81 MG CHEWABLE TABLET PO (20:47)
[2023-07-16] MEDS: MORPHINE SULFATE (*CRX) 2 MG/ML INJ IV PUSH (20:51)
[2023-07-17 04:15] VITALS: BP 132/59; PULSE 71; RESP 18; TEMP 36.3; O2SAT 97
[2023-07-17 06:45] LABS: Alanine Aminotransferase 12 U/L (6-35); Alkaline Phosphatase 50 U/L (38-126); Anion Gap 6 mmol/L (4-12); Aspartate Amino Transferase 17 U/L (14-36); Blood Urea Nitrogen 23 mg/dL (7-17); Calcium 8.9 mg/dL (8.4-10.2); Carbon Dioxide 21 mmol/L (22-30); Chloride 108 mmol/L (98-107); Estimated CRCL calculation 50 ml/min; Estimated Glomerular Filt Rate > 60; Glucose 130 mg/dL (65-110); Magnesium 2.5 mg/dL (1.6-2.3); Potassium 4.3 mmol/L (3.4-5.0); Sodium 135 mmol/L (137-145)
[2023-07-17 06:57] LABS: Basophils Absolute Auto 0.1 K/mm3 (0.0-0.1); Basophils Percent Auto 0.7 % (0.2-1.2); Eosinophils Absolute Auto 0.1 K/mm3 (0-0.3); Eosinophils Percent Auto 0.9 % (0-4.4); Hematocrit 34.4 % (37.0-47.0); Immature Granulocyte Absolute 0.06 K/mm3 (0.00-0.031); Immature Granulocyte Percent A 0.7 % (0-0.5); Lymphocytes Absolute Auto 1.27 K/mm3 (0.9-3.2); Lymphocytes Percent Auto 14.8 % (18.3-44.2); Mean Corpuscular Hemoglobin 28.8 pg (26-34); Mean Corpuscular Volume 90.1 fl (80-100); Mean Platelet Volume 9.7 fl (7.4-10.4); Monocytes Absolute Auto 0.9 K/mm3 (0.1-0.6); Monocytes Percent Auto 9.9 % (2.6-8.5); Neutrophils Absolute Auto 6.3 K/mm3 (1.3-6.7); Platelet Count Result 224 k/mm3 (150-375); Red Blood Count 3.82 M/mm3 (4.2-5.4); Red Cell Distribution Width 14.1 % (11.5-14.5); White Blood Count 8.6 K/mm3 (4.5-10.0)
[2023-07-17 07:38] LABS: Glucose Point of Care 133 mg/dl (65-105)
[2023-07-17] MEDS: THERAPEUTIC MULTIVITAMINS/MINERALS TAB (*BKC) 1 TABLET PO (09:27)
[2023-07-17] MEDS: EMPAGLIFLOZIN 25 MG TABLET PO (09:27)
[2023-07-17] MEDS: LORATADINE 10 MG TABLET PO (09:27)
[2023-07-17] MEDS: CALCIUM/VITAMIN D 500 MG/5 MCG (200 I.U.) TABLET PO ×2 (09:27→16:23)
[2023-07-17] MEDS: CITALOPRAM HYDROBROMIDE 20 MG TABLET 40 MG PO (09:27)
[2023-07-17] MEDS: LOSARTAN POTASSIUM 100 MG TABLET PO (09:27)
[2023-07-17] MEDS: HYDROcodone/acetaminophen (*CRX) 5-325 MG TABLET 1 TAB PO ×2 (09:27→18:49)
[2023-07-17] MEDS: FLUTICASONE PROPIONATE 0.05% NA SPR 16 GM BTL (*BKC) 2 SPRAY NASAL (09:28)
[2023-07-17 11:32] LABS: Glucose Point of Care 182 mg/dl (65-105)
--- NOTE | 2023-07-17 12:02 | P.PNIM_ITS ---
Progress Note: A&P Assessment and Plan (1) Closed right humeral fracture: Qualifiers: Encounter type: initial encounter Fracture alignment: displaced Fracture morphology: other fracture Humerus Location: proximal Qualified Code(s): S42.291A - Other displaced fracture of upper end of right humerus, initial encounter for closed fracture Code(s): S42.301A - Unspecified fracture of shaft of humerus, right arm, initial encounter for closed fracture Status: Acute Assessment and Plan: 07/16/23: * X-ray of right humerus showing comminuted fracture of femoral head and neck, osteopenia * X-ray of right shoulder showing diffuse osteopenia, comminuted fracture of the humeral head surgical neck with mild medial displacement of the major distal fracture, anteroinferior subluxation at glenohumeral joint, normal alignment of AC joint * Chest x-ray showing comminuted fracture right humeral head and surgical * Continue with pain control * Ortho consulted and recommending conservative treatment with a shoulder immobilizer, pain medication and ice\ * PT and OT ordered 07/17/2023: * Continue with shoulder immobilizer * Patient asking about surgery, we will defer to Ortho * Continue PT and OT * Case management working SNF placement (2) Fall from ground level: Code(s): W18.30XA - Fall on same level, unspecified, initial encounter Status: Acute Assessment and Plan: 07/16/23: * Patient sustained a fall while getting out of bed and trying to reach for her walker to go the bathroom. She landed on her right side did hit her head on the carpet without loss of consciousness. * See above 07/17/23: * See above * No change to current treatment plan (3) Hypertension: Code(s): I10 - Essential (primary) hypertension Status: Acute Assessment and Plan: 07/16/23: * B/P ranging 135/61-164/64 * Continue Losartan 07/17/23: * No change to current treatment (4) Type 2 diabetes mellitus: Code(s): E11.9 - Type 2 diabetes mellitus without complications Status: Acute Assessment and Plan: 07/16/23: * BG ranging 131-155 * Hgb A1C on 06/04/2021 was 7.1, we will repeat hemoglobin A1c in the morning * AC/HS accu checks. * Jardiance restarted * Low dose SSI started * hypoglycemia protocol ordered 07/17/23: * No change to current plan (5) Hyperlipidemia: Code(s): E78.5 - Hyperlipidemia, unspecified Status: Acute Assessment and Plan: 07/16/23: * Continue pravastatin 07/17/23: * No change to current treatment plan Time Spent With Patient Time with patient: 25 - 35 minutes Subjective Date/time seen: 07/17/23 12:02 Interval history: 07/16/23: This is an 83-year-old female who presented to the hospital on 07/15/2023 with complaint of right shoulder pain after a fall. Workup in the hospital include an x-ray of right humerus which showed a comminuted fracture of the humeral head and neck, osteopenia. X-ray of right shoulder showing fracture of the humeral head and surgical neck. Chest x-ray showing comminuted fracture of the right humeral and surgical neck, no acute cardiopulmonary disease. Head CT was negative for any acute intracranial findings. Right hand and right forearm x- ray showing diffuse osteopenia, polyarticular osteoarthritis, no fracture or dislocation. Initial labs essentially unremarkable other than a bicarb level of 16. Patient was given morphine and Zofran in the ED. ortho was consulted. On exam today patient is alert oriented x3, lying in the bed. She is curre
--- NOTE | 2023-07-17 12:02 | PM.IMPN ---
Progress Note: A&P Assessment and Plan (1) Closed right humeral fracture: Qualifiers: Encounter type: initial encounter Fracture alignment: displaced Fracture morphology: other fracture Humerus Location: proximal Qualified Code(s): S42.291A - Other displaced fracture of upper end of right humerus, initial encounter for closed fracture Code(s): S42.301A - Unspecified fracture of shaft of humerus, right arm, initial encounter for closed fracture Status: Acute Assessment and Plan: 07/16/23: X-ray of right humerus showing comminuted fracture of femoral head and neck, osteopenia X-ray of right shoulder showing diffuse osteopenia, comminuted fracture of the humeral head surgical neck with mild medial displacement of the major distal fracture, anteroinferior subluxation at glenohumeral joint, normal alignment of AC joint Chest x-ray showing comminuted fracture right humeral head and surgical Continue with pain control Ortho consulted and recommending conservative treatment with a shoulder immobilizer, pain medication and ice\ PT and OT ordered 07/17/2023: Continue with shoulder immobilizer Patient asking about surgery, we will defer to Ortho Continue PT and OT Case management working SNF placement (2) Fall from ground level: Code(s): W18.30XA - Fall on same level, unspecified, initial encounter Status: Acute Assessment and Plan: 07/16/23: Patient sustained a fall while getting out of bed and trying to reach for her walker to go the bathroom. She landed on her right side did hit her head on the carpet without loss of consciousness. See above 07/17/23: See above No change to current treatment plan (3) Hypertension: Code(s): I10 - Essential (primary) hypertension Status: Acute Assessment and Plan: 07/16/23: B/P ranging 135/61-164/64 Continue Losartan 07/17/23: No change to current treatment (4) Type 2 diabetes mellitus: Code(s): E11.9 - Type 2 diabetes mellitus without complications Status: Acute Assessment and Plan: 07/16/23: BG ranging 131-155 Hgb A1C on 06/04/2021 was 7.1, we will repeat hemoglobin A1c in the morning AC/HS accu checks. Jardiance restarted Low dose SSI started hypoglycemia protocol ordered 07/17/23: No change to current plan (5) Hyperlipidemia: Code(s): E78.5 - Hyperlipidemia, unspecified Status: Acute Assessment and Plan: 07/16/23: Continue pravastatin 07/17/23: No change to current treatment plan Time Spent With Patient Time with patient: 25 - 35 minutes Subjective Date/time seen: 07/17/23 12:02 Interval history: 07/16/23: This is an 83-year-old female who presented to the hospital on 07/15/2023 with complaint of right shoulder pain after a fall. Workup in the hospital include an x-ray of right humerus which showed a comminuted fracture of the humeral head and neck, osteopenia. X-ray of right shoulder showing fracture of the humeral head and surgical neck. Chest x-ray showing comminuted fracture of the right humeral and surgical neck, no acute cardiopulmonary disease. Head CT was negative for any acute intracranial findings. Right hand and right forearm x-ray showing diffuse osteopenia, polyarticular osteoarthritis, no fracture or dislocation. Initial labs essentially unremarkable other than a bicarb level of 16. Patient was given morphine and Zofran in the ED. ortho was consulted. On exam today patient is alert oriented x3, lying in the bed. She is currently in a arm sling. Patient endorses out of 10 pain in her right shoulder. Patient denies any fever, chills, nausea, vomiting, diarrhea, abdominal pain, shortness a breath, chest pain, headache, lightheadedness, dizziness. Labs today show Hgb of 11.5, sodium 135, bicarb 18, blood sugar ranging 131-155, magnesium was 2.3, liver enzymes are normal. Ortho to come and evaluate today. 07/17/23: Patient is alert and oriented x3, sit
--- NOTE | 2023-07-17 13:10 | PM.PNORT ---
Progress Note: A&P Assessment and Plan (1) Closed right humeral fracture: Qualifiers: Encounter type: initial encounter Fracture alignment: displaced Fracture morphology: other fracture Humerus Location: proximal Qualified Code(s): S42.291A - Other displaced fracture of upper end of right humerus, initial encounter for closed fracture Code(s): S42.301A - Unspecified fracture of shaft of humerus, right arm, initial encounter for closed fracture Status: Acute Assessment and Plan: Comminuted 4 part fracture of the right proximal humerus. Relatively good alignment. Humeral head located. Type of fracture discussed in detail. Treatment options including operative and non operative treatment reviewed. Risks, benefits and alternatives of each treatment discussed in detail. The patient has declined surgical treatment. Risks of treatment decision discussed in detail. Potential problems with displacement of the fracture, loss of alignment, nonunion, malunion and dysfunction discussed in detail. The patient's questions were answered. They verbalized understanding and agreement. Conservative treatment with immobilization, ice. Improvement in pain s/p initiating of shoulder immobilizer. Continue pain control. Continue ice. PT/OT. NWB RUE. May require [facility] or SNF. Subjective Subjective Date/Time Seen: 07/17/23 13:10 Interval history: Right Shoulder Fracture Patient doing well. Pain well controlled. No new concerns. Worried about ability to d/c home. Awaiting PT/OT. Review of Systems Review of Systems: All systems reviewed & are unremarkable except as noted in HPI and below Exam Const: General: No confusion Orientation/consciousness: patient oriented x3 and No confusion HENMT: Head: normal to inspection, normocephalic and atraumatic Eyes: Conjunctivae: conjunctivae normal Sclera: sclerae normal Neck: Neck: supple and nontender Chest: Chest palpation & inspection: normal inspection of the chest Resp: Effort & Inspection: normal respiratory effort and no audible wheezes Cardio: Rate: regular rate Rhythm: regular rhythm : General: Yes deferred Skin: General skin exam: no rashes or lesions noted Neuro: General: patient oriented x3 and No confusion Cranial nerves: Yes Normal hearing present Extrem: General: capillary refill normal Right upper extremity: shoulder/upper arm abnormal to inspection (Ecchymosis lateral shoulder), tenderness of the proximal humerus, swelling of the proximal humerus, axillary nerve sensory function normal and abnormal ROM pain with active ROM in extension and in flexion and with range as follows (Deferred secondary to fracture), elbow/forearm normal to inspection and normal ROM; no tenderness and no swelling and Extremity exam: right hand normal to inspection, normal capillary refill, neuromotor exam normal, neurosensory exam normal, tendon exam normal of all digits and vascular exam radial pulse present and normal capillary refill Left upper extremity: normal to inspection and shoulder/upper arm inspection abnormal and normal ROM; no tenderness and no swelling Right lower extremity: hip/thigh Details: normal to inspection and normal ROM; no tenderness, knee Details: normal to inspection and swelling Location: of the pre-patellar area, ankle ( able to actively flex and extend ankle) Details: no tenderness and foot Details: normal capillary refill, toes with normal ROM, vascular exam Details: dorsalis pedis pulse present and normal capillary refill and motor-sensory exam Details: light-touch normal Location: in all toes; no tenderness Left lower extremity: normal to inspection, hip/thigh Details: no tenderness and no swelling, lower leg, ankle (no calf tenderness) Details: normal ROM; no tenderness and foot Details: normal capillary refill, vascular exam Details: dorsalis pedis pulse present and normal capillary refill and motor-sensory exam light-touch normal in all to
[2023-07-17 14:00] VITALS: BP 122/79; PULSE 76; RESP 20; TEMP 36.3; O2SAT 100
[2023-07-17 17:34] LABS: Glucose Point of Care 120 mg/dl (65-105)
[2023-07-17 20:11] LABS: Glucose Point of Care 234 mg/dl (65-105)
[2023-07-17 22:00] VITALS: BP 135/54; PULSE 78; RESP 18; TEMP 36.4; O2SAT 100
[2023-07-17] MEDS: INSULIN ASPART (*BKC) 100 UNITS/ML SUB-Q (22:07)
[2023-07-17] MEDS: PRAVASTATIN SODIUM 20 MG TABLET PO (22:07)
[2023-07-17] MEDS: ASPIRIN 81 MG CHEWABLE TABLET PO (22:07)
[2023-07-18] MEDS: HYDROcodone/acetaminophen (*CRX) 5-325 MG TABLET 1 TAB PO ×4 (00:02→20:26)
[2023-07-18 05:39] VITALS: BP 141/72; PULSE 77; RESP 16; TEMP 36.4; O2SAT 99
[2023-07-18 06:41] LABS: Basophils Absolute Auto 0.1 K/mm3 (0.0-0.1); Basophils Percent Auto 1.1 % (0.2-1.2); Eosinophils Absolute Auto 0.2 K/mm3 (0-0.3); Eosinophils Percent Auto 2.5 % (0-4.4); Hematocrit 36.2 % (37.0-47.0); Hemoglobin 11.3 g/dL (12.0-15.0); Immature Granulocyte Absolute 0.04 K/mm3 (0.00-0.031); Immature Granulocyte Percent A 0.6 % (0-0.5); Lymphocytes Absolute Auto 1.13 K/mm3 (0.9-3.2); Lymphocytes Percent Auto 17.7 % (18.3-44.2); Mean Corpuscular HGB Conc 31.2 g/dl (32-36); Mean Corpuscular Hemoglobin 28.6 pg (26-34); Mean Corpuscular Volume 91.6 fl (80-100); Mean Platelet Volume 9.7 fl (7.4-10.4); Monocytes Absolute Auto 0.8 K/mm3 (0.1-0.6); Monocytes Percent Auto 11.8 % (2.6-8.5); Neutrophils Absolute Auto 4.2 K/mm3 (1.3-6.7); Neutrophils Percent Auto 66.3 % (45.5-73.1); Platelet Count Result 221 k/mm3 (150-375); Red Blood Count 3.95 M/mm3 (4.2-5.4); White Blood Count 6.4 K/mm3 (4.5-10.0)
[2023-07-18 06:49] LABS: Alanine Aminotransferase 12 U/L (6-35); Albumin Level 3.8 g/dL (3.5-5.1); Alkaline Phosphatase 51 U/L (38-126); Anion Gap 5 mmol/L (4-12); Aspartate Amino Transferase 16 U/L (14-36); Bilirubin,Total 0.9 mg/dL (0.2-1.3); Blood Urea Nitrogen 21 mg/dL (7-17); Calcium 8.8 mg/dL (8.4-10.2); Carbon Dioxide 25 mmol/L (22-30); Chloride 107 mmol/L (98-107); Estimated CRCL calculation 58 ml/min; Estimated Glomerular Filt Rate > 60; Glucose 153 mg/dL (65-110); Potassium 4.1 mmol/L (3.4-5.0); Sodium 137 mmol/L (137-145)
[2023-07-18 08:00] VITALS: PULSE 77; RESP 16; O2SAT 99
[2023-07-18 08:14] LABS: Glucose Point of Care 147 mg/dl (65-105)
[2023-07-18] MEDS: LORATADINE 10 MG TABLET PO (09:37)
[2023-07-18] MEDS: LOSARTAN POTASSIUM 100 MG TABLET PO (09:37)
[2023-07-18] MEDS: CITALOPRAM HYDROBROMIDE 20 MG TABLET 40 MG PO (09:38)
[2023-07-18] MEDS: CALCIUM/VITAMIN D 500 MG/5 MCG (200 I.U.) TABLET PO ×2 (09:38→17:02)
[2023-07-18] MEDS: THERAPEUTIC MULTIVITAMINS/MINERALS TAB (*BKC) 1 TABLET PO (09:38)
[2023-07-18] MEDS: EMPAGLIFLOZIN 25 MG TABLET PO (09:38)
[2023-07-18] MEDS: FLUTICASONE PROPIONATE 0.05% NA SPR 16 GM BTL (*BKC) 2 SPRAY NASAL (09:38)
--- NOTE | 2023-07-18 10:23 | P.PNIM_ITS ---
Progress Note: A&P Assessment and Plan (1) Closed right humeral fracture: Qualifiers: Encounter type: initial encounter Fracture alignment: displaced Fracture morphology: other fracture Humerus Location: proximal Qualified Code(s): S42.291A - Other displaced fracture of upper end of right humerus, initial encounter for closed fracture Code(s): S42.301A - Unspecified fracture of shaft of humerus, right arm, initial encounter for closed fracture Status: Acute Assessment and Plan: 07/16/23: * X-ray of right humerus showing comminuted fracture of femoral head and neck, osteopenia * X-ray of right shoulder showing diffuse osteopenia, comminuted fracture of the humeral head surgical neck with mild medial displacement of the major distal fracture, anteroinferior subluxation at glenohumeral joint, normal alignment of AC joint * Chest x-ray showing comminuted fracture right humeral head and surgical * Continue with pain control * Ortho consulted and recommending conservative treatment with a shoulder immobilizer, pain medication and ice\ * PT and OT ordered 07/17/2023: * Continue with shoulder immobilizer * Patient asking about surgery, we will defer to Ortho * Continue PT and OT * Case management working SNF placement 07/18/23: * No change to current treatment plan (2) Fall from ground level: Code(s): W18.30XA - Fall on same level, unspecified, initial encounter Status: Acute Assessment and Plan: 07/16/23: * Patient sustained a fall while getting out of bed and trying to reach for her walker to go the bathroom. She landed on her right side did hit her head on the carpet without loss of consciousness. * See above 07/17/23: * See above * No change to current treatment plan (3) Hypertension: Code(s): I10 - Essential (primary) hypertension Status: Acute Assessment and Plan: 07/16/23: * B/P ranging 135/61-164/64 * Continue Losartan 07/17/23: * No change to current treatment (4) Type 2 diabetes mellitus: Code(s): E11.9 - Type 2 diabetes mellitus without complications Status: Acute Assessment and Plan: 07/16/23: * BG ranging 131-155 * Hgb A1C on 06/04/2021 was 7.1, we will repeat hemoglobin A1c in the morning * AC/HS accu checks. * Jardiance restarted * Low dose SSI started * hypoglycemia protocol ordered 07/17/23: * No change to current plan (5) Hyperlipidemia: Code(s): E78.5 - Hyperlipidemia, unspecified Status: Acute Assessment and Plan: 07/16/23: * Continue pravastatin 07/17/23: * No change to current treatment plan Time Spent With Patient Time with patient: 15 - 25 minutes Subjective Date/time seen: 07/18/23 10:23 Interval history: 07/16/23: This is an 83-year-old female who presented to the hospital on 07/15/2023 with complaint of right shoulder pain after a fall. Workup in the hospital include an x-ray of right humerus which showed a comminuted fracture of the humeral head and neck, osteopenia. X-ray of right shoulder showing fracture of the humeral head and surgical neck. Chest x-ray showing comminuted fracture of the right humeral and surgical neck, no acute cardiopulmonary disease. Head CT was negative for any acute intracranial findings. Right hand and right forearm x- ray showing diffuse osteopenia, polyarticular osteoarthritis, no fracture or dislocation. Initial labs essentially unremarkable other than a bicarb level of 16. Patient was given morphine and Zofran in the ED. ortho was consulted. On exam today
--- NOTE | 2023-07-18 10:23 | PM.IMPN ---
Progress Note: A&P Assessment and Plan (1) Closed right humeral fracture: Qualifiers: Encounter type: initial encounter Fracture alignment: displaced Fracture morphology: other fracture Humerus Location: proximal Qualified Code(s): S42.291A - Other displaced fracture of upper end of right humerus, initial encounter for closed fracture Code(s): S42.301A - Unspecified fracture of shaft of humerus, right arm, initial encounter for closed fracture Status: Acute Assessment and Plan: 07/16/23: X-ray of right humerus showing comminuted fracture of femoral head and neck, osteopenia X-ray of right shoulder showing diffuse osteopenia, comminuted fracture of the humeral head surgical neck with mild medial displacement of the major distal fracture, anteroinferior subluxation at glenohumeral joint, normal alignment of AC joint Chest x-ray showing comminuted fracture right humeral head and surgical Continue with pain control Ortho consulted and recommending conservative treatment with a shoulder immobilizer, pain medication and ice\ PT and OT ordered 07/17/2023: Continue with shoulder immobilizer Patient asking about surgery, we will defer to Ortho Continue PT and OT Case management working SNF placement 07/18/23: No change to current treatment plan (2) Fall from ground level: Code(s): W18.30XA - Fall on same level, unspecified, initial encounter Status: Acute Assessment and Plan: 07/16/23: Patient sustained a fall while getting out of bed and trying to reach for her walker to go the bathroom. She landed on her right side did hit her head on the carpet without loss of consciousness. See above 07/17/23: See above No change to current treatment plan (3) Hypertension: Code(s): I10 - Essential (primary) hypertension Status: Acute Assessment and Plan: 07/16/23: B/P ranging 135/61-164/64 Continue Losartan 07/17/23: No change to current treatment (4) Type 2 diabetes mellitus: Code(s): E11.9 - Type 2 diabetes mellitus without complications Status: Acute Assessment and Plan: 07/16/23: BG ranging 131-155 Hgb A1C on 06/04/2021 was 7.1, we will repeat hemoglobin A1c in the morning AC/HS accu checks. Jardiance restarted Low dose SSI started hypoglycemia protocol ordered 07/17/23: No change to current plan (5) Hyperlipidemia: Code(s): E78.5 - Hyperlipidemia, unspecified Status: Acute Assessment and Plan: 07/16/23: Continue pravastatin 07/17/23: No change to current treatment plan Time Spent With Patient Time with patient: 15 - 25 minutes Subjective Date/time seen: 07/18/23 10:23 Interval history: 07/16/23: This is an 83-year-old female who presented to the hospital on 07/15/2023 with complaint of right shoulder pain after a fall. Workup in the hospital include an x-ray of right humerus which showed a comminuted fracture of the humeral head and neck, osteopenia. X-ray of right shoulder showing fracture of the humeral head and surgical neck. Chest x-ray showing comminuted fracture of the right humeral and surgical neck, no acute cardiopulmonary disease. Head CT was negative for any acute intracranial findings. Right hand and right forearm x-ray showing diffuse osteopenia, polyarticular osteoarthritis, no fracture or dislocation. Initial labs essentially unremarkable other than a bicarb level of 16. Patient was given morphine and Zofran in the ED. ortho was consulted. On exam today patient is alert oriented x3, lying in the bed. She is currently in a arm sling. Patient endorses out of 10 pain in her right shoulder. Patient denies any fever, chills, nausea, vomiting, diarrhea, abdominal pain, shortness a breath, chest pain, headache, lightheadedness, dizziness. Labs today show Hgb of 11.5, sodium 135, bicarb 18, blood sugar ranging 131-155, magnesium was 2.3, liver enzymes are normal. Ortho to come and evaluate today.
[2023-07-18 11:15] LABS: Glucose Point of Care 177 mg/dl (65-105)
[2023-07-18 14:00] VITALS: BP 118/68; PULSE 77; RESP 16; TEMP 36.4; O2SAT 100
[2023-07-18 16:40] LABS: Glucose Point of Care 220 mg/dl (65-105)
[2023-07-18] MEDS: INSULIN ASPART (*BKC) 100 UNITS/ML SUB-Q (17:03)
[2023-07-18] MEDS: PRAVASTATIN SODIUM 20 MG TABLET PO (20:26)
[2023-07-18] MEDS: ASPIRIN 81 MG CHEWABLE TABLET PO (20:26)
[2023-07-18 21:52] LABS: Glucose Point of Care 186 mg/dl (65-105)
[2023-07-18 22:00] VITALS: BP 119/54; PULSE 91; RESP 18; TEMP 37.1; O2SAT 100
[2023-07-19] MEDS: HYDROcodone/acetaminophen (*CRX) 5-325 MG TABLET 1 TAB PO ×6 (00:14→23:07)
[2023-07-19 06:00] VITALS: BP 128/74; PULSE 86; RESP 18; TEMP 36.4; O2SAT 100
[2023-07-19 06:40] LABS: Basophils Absolute Auto 0.1 K/mm3 (0.0-0.1); Basophils Percent Auto 0.7 % (0.2-1.2); Eosinophils Absolute Auto 0.2 K/mm3 (0-0.3); Eosinophils Percent Auto 1.9 % (0-4.4); Hemoglobin 12.2 g/dL (12.0-15.0); Immature Granulocyte Absolute 0.06 K/mm3 (0.00-0.031); Immature Granulocyte Percent A 0.7 % (0-0.5); Lymphocytes Absolute Auto 1.92 K/mm3 (0.9-3.2); Lymphocytes Percent Auto 23.3 % (18.3-44.2); Mean Corpuscular HGB Conc 32.1 g/dl (32-36); Mean Corpuscular Hemoglobin 29.1 pg (26-34); Mean Corpuscular Volume 90.7 fl (80-100); Mean Platelet Volume 9.8 fl (7.4-10.4); Monocytes Absolute Auto 0.9 K/mm3 (0.1-0.6); Monocytes Percent Auto 10.8 % (2.6-8.5); Neutrophils Absolute Auto 5.2 K/mm3 (1.3-6.7); Neutrophils Percent Auto 62.6 % (45.5-73.1); Platelet Count Result 295 k/mm3 (150-375); Red Blood Count 4.19 M/mm3 (4.2-5.4); Red Cell Distribution Width 14.2 % (11.5-14.5); White Blood Count 8.3 K/mm3 (4.5-10.0)
[2023-07-19 06:52] LABS: Alanine Aminotransferase 16 U/L (6-35); Albumin Level 4.2 g/dL (3.5-5.1); Alkaline Phosphatase 63 U/L (38-126); Anion Gap 9 mmol/L (4-12); Aspartate Amino Transferase 21 U/L (14-36); Bilirubin,Total 1.1 mg/dL (0.2-1.3); Blood Urea Nitrogen 20 mg/dL (7-17); Calcium 9.1 mg/dL (8.4-10.2); Carbon Dioxide 24 mmol/L (22-30); Chloride 104 mmol/L (98-107); Estimated CRCL calculation 44 ml/min; Estimated Glomerular Filt Rate > 60; Glucose 167 mg/dL (65-110); Potassium 3.8 mmol/L (3.4-5.0); Sodium 137 mmol/L (137-145)
[2023-07-19 07:34] LABS: Glucose Point of Care 141 mg/dl (65-105)
[2023-07-19] MEDS: THERAPEUTIC MULTIVITAMINS/MINERALS TAB (*BKC) 1 TABLET PO (09:28)
[2023-07-19] MEDS: EMPAGLIFLOZIN 25 MG TABLET PO (09:29)
[2023-07-19] MEDS: CALCIUM/VITAMIN D 500 MG/5 MCG (200 I.U.) TABLET PO ×2 (09:29→17:39)
[2023-07-19] MEDS: CITALOPRAM HYDROBROMIDE 20 MG TABLET 40 MG PO (09:29)
[2023-07-19] MEDS: LOSARTAN POTASSIUM 100 MG TABLET PO (09:29)
[2023-07-19] MEDS: LORATADINE 10 MG TABLET PO (09:29)
--- NOTE | 2023-07-19 09:29 | PM.IMPN ---
Progress Note: A&P Assessment and Plan (1) Closed right humeral fracture: Qualifiers: Encounter type: initial encounter Fracture alignment: displaced Fracture morphology: other fracture Humerus Location: proximal Qualified Code(s): S42.291A - Other displaced fracture of upper end of right humerus, initial encounter for closed fracture Code(s): S42.301A - Unspecified fracture of shaft of humerus, right arm, initial encounter for closed fracture Status: Acute (2) Fall from ground level: Code(s): W18.30XA - Fall on same level, unspecified, initial encounter Status: Acute (3) Hypertension: Code(s): I10 - Essential (primary) hypertension Status: Acute (4) Type 2 diabetes mellitus: Code(s): E11.9 - Type 2 diabetes mellitus without complications Status: Acute (5) Hyperlipidemia: Code(s): E78.5 - Hyperlipidemia, unspecified Status: Acute Plan This is an 83-year-old female who presented to the hospital on 07/15/2023 with complaint of right shoulder pain after a fall. Workup in the hospital include an x-ray of right humerus which showed a comminuted fracture of the humeral head and neck, osteopenia. X-ray of right shoulder showing fracture of the humeral head and surgical neck. Chest x-ray showing comminuted fracture of the right humeral and surgical neck, no acute cardiopulmonary disease. Head CT was negative for any acute intracranial findings. Right hand and right forearm x-ray showing diffuse osteopenia, polyarticular osteoarthritis, no fracture or dislocation. Initial labs essentially unremarkable other than a bicarb level of 16. Patient was given morphine and Zofran in the ED. ortho was consulted. Ortho recommended non operative management. Patient will need sling immobilization in PT OT. Further rehabilitation at a correction facility in process. DVT prophylaxis Lovenox Type 2 diabetes Hypertension Hyperlipidemia Code status full code Subjective Date/time seen: 07/19/23 09:29 Interval history: This is an 83-year-old female who presented to the hospital on 07/15/2023 with complaint of right shoulder pain after a fall. Workup in the hospital include an x-ray of right humerus which showed a comminuted fracture of the humeral head and neck, osteopenia. X-ray of right shoulder showing fracture of the humeral head and surgical neck. Chest x-ray showing comminuted fracture of the right humeral and surgical neck, no acute cardiopulmonary disease. Head CT was negative for any acute intracranial findings. Right hand and right forearm x-ray showing diffuse osteopenia, polyarticular osteoarthritis, no fracture or dislocation. Initial labs essentially unremarkable other than a bicarb level of 16. Patient was given morphine and Zofran in the ED. ortho was consulted. Ortho recommended non operative management. Patient will need sling immobilization in PT OT. Further rehabilitation at a correction facility in process. DVT prophylaxis Lovenox Type 2 diabetes Hypertension Hyperlipidemia Code status full code Review of Systems Review of Systems: All systems reviewed & are unremarkable except as noted in HPI and below Exam Narrative: General: In no acute distress, well nourished Head: atraumatic, no encephalopathy Eyes: EOMI, PERRLA, sclera clear ENT: moist mucous membranes, nasal passages clear Neck: supple, no JVD, no adenopathy, trachea midline Cardiac: Normal S1 and S2. RRR, No murmur, gallops or friction rubs, peripheral pulses intact. Respiratory: Lungs clear to auscultation, no adventitious lung sounds, currently on RA Gastrointestinal: soft, non-distended, non-tender, normoactive bowel sounds. : voiding without difficulty. Extremities: limited movement to RUE, Moves all other extremities well, no edema, right shoulder and shoulder immobilized Skin: clean, dry, intact. No wounds or lesions. Neuro: Alert and oriented x4, cranial nerves i
[2023-07-19] MEDS: polyethylene glycoL 3350 17 GM POWD.PACK PO (10:59)
[2023-07-19] MEDS: ENOXAPARIN 40 MG/0.4 ML SYRINGE SUB-Q (11:02)
[2023-07-19] MEDS: FLUTICASONE PROPIONATE 0.05% NA SPR 16 GM BTL (*BKC) 2 SPRAY NASAL (11:02)
[2023-07-19 11:50] LABS: Glucose Point of Care 161 mg/dl (65-105)
[2023-07-19 14:00] VITALS: BP 122/48; PULSE 896; RESP 18; TEMP 36.1; O2SAT 100
[2023-07-19 17:04] LABS: Glucose Point of Care 195 mg/dl (65-105)
[2023-07-19 19:51] LABS: Glucose Point of Care 165 mg/dl (65-105)
[2023-07-19] MEDS: ASPIRIN 81 MG CHEWABLE TABLET PO (20:16)
[2023-07-19] MEDS: PRAVASTATIN SODIUM 20 MG TABLET PO (20:16)
[2023-07-19] MEDS: ACETAMINOPHEN 325 MG TABLET 650 MG PO (20:16)
[2023-07-19 20:59] VITALS: BP 123/61; PULSE 73; RESP 18; TEMP 36.9; O2SAT 99
[2023-07-20 05:50] VITALS: BP 143/63; PULSE 81; RESP 16; TEMP 36.8; O2SAT 100
[2023-07-20] MEDS: ACETAMINOPHEN 325 MG TABLET 650 MG PO (06:29)
[2023-07-20 07:38] LABS: Basophils Absolute Auto 0.1 K/mm3 (0.0-0.1); Basophils Percent Auto 0.9 % (0.2-1.2); Eosinophils Absolute Auto 0.2 K/mm3 (0-0.3); Eosinophils Percent Auto 2.6 % (0-4.4); Hematocrit 33.7 % (37.0-47.0); Hemoglobin 10.6 g/dL (12.0-15.0); Immature Granulocyte Absolute 0.04 K/mm3 (0.00-0.031); Immature Granulocyte Percent A 0.7 % (0-0.5); Lymphocytes Absolute Auto 1.09 K/mm3 (0.9-3.2); Lymphocytes Percent Auto 18.9 % (18.3-44.2); Mean Corpuscular HGB Conc 31.5 g/dl (32-36); Mean Corpuscular Hemoglobin 28.9 pg (26-34); Mean Corpuscular Volume 91.8 fl (80-100); Mean Platelet Volume 10.1 fl (7.4-10.4); Monocytes Absolute Auto 0.6 K/mm3 (0.1-0.6); Monocytes Percent Auto 10.9 % (2.6-8.5); Neutrophils Absolute Auto 3.8 K/mm3 (1.3-6.7); Platelet Count Result 238 k/mm3 (150-375); Red Blood Count 3.67 M/mm3 (4.2-5.4); White Blood Count 5.8 K/mm3 (4.5-10.0)
[2023-07-20 07:48] LABS: Glucose Point of Care 135 mg/dl (65-105)
[2023-07-20] MEDS: ENOXAPARIN 40 MG/0.4 ML SYRINGE SUB-Q (08:16)
[2023-07-20] MEDS: FLUTICASONE PROPIONATE 0.05% NA SPR 16 GM BTL (*BKC) 2 SPRAY NASAL (08:16)
[2023-07-20] MEDS: polyethylene glycoL 3350 17 GM POWD.PACK PO (08:16)
[2023-07-20] MEDS: CITALOPRAM HYDROBROMIDE 20 MG TABLET 40 MG PO (08:17)
[2023-07-20] MEDS: THERAPEUTIC MULTIVITAMINS/MINERALS TAB (*BKC) 1 TABLET PO (08:17)
[2023-07-20] MEDS: LOSARTAN POTASSIUM 100 MG TABLET PO (08:17)
[2023-07-20] MEDS: LORATADINE 10 MG TABLET PO (08:17)
[2023-07-20] MEDS: EMPAGLIFLOZIN 25 MG TABLET PO (08:17)
[2023-07-20] MEDS: CALCIUM/VITAMIN D 500 MG/5 MCG (200 I.U.) TABLET PO (08:18)
[2023-07-20 09:26] LABS: Alanine Aminotransferase 12 U/L (6-35); Albumin Level 3.5 g/dL (3.5-5.1); Alkaline Phosphatase 52 U/L (38-126); Anion Gap 5 mmol/L (4-12); Aspartate Amino Transferase 26 U/L (14-36); Blood Urea Nitrogen 20 mg/dL (7-17); Calcium 8.8 mg/dL (8.4-10.2); Carbon Dioxide 24 mmol/L (22-30); Chloride 107 mmol/L (98-107); Estimated CRCL calculation 73 ml/min; Estimated Glomerular Filt Rate > 60; Glucose 121 mg/dL (65-110); Sodium 136 mmol/L (137-145)
[2023-07-20 11:55] LABS: Glucose Point of Care 158 mg/dl (65-105)
--- NOTE | 2023-07-20 12:51 | PM.DS ---
DS: Admitting Diagnosis Discharge Date 07/20/2023 Admitting Diagnosis Fall DS: Discharge Diagnosis Discharge Diagnosis (1) Closed right humeral fracture: Qualifiers: Encounter type: initial encounter Fracture alignment: displaced Fracture morphology: other fracture Humerus Location: proximal Qualified Code(s): S42.291A - Other displaced fracture of upper end of right humerus, initial encounter for closed fracture Code(s): S42.301A - Unspecified fracture of shaft of humerus, right arm, initial encounter for closed fracture Status: Acute (2) Fall from ground level: Code(s): W18.30XA - Fall on same level, unspecified, initial encounter Status: Acute (3) Hypertension: Code(s): I10 - Essential (primary) hypertension Status: Acute (4) Type 2 diabetes mellitus: Code(s): E11.9 - Type 2 diabetes mellitus without complications Status: Acute (5) Hyperlipidemia: Code(s): E78.5 - Hyperlipidemia, unspecified Status: Acute DS: Summary Hospital Course Hospital Course: This is an 83-year-old female who presented to the hospital on 07/15/2023 with complaint of right shoulder pain after a fall.? Workup in the hospital include an x-ray of right humerus which showed a comminuted fracture of the humeral head and neck, osteopenia.? X-ray of right shoulder showing fracture of the humeral head and surgical neck.? Chest x-ray showing comminuted fracture of the right humeral and surgical neck, no acute cardiopulmonary disease.? Head CT was negative for any acute intracranial findings.? Right hand and right forearm x-ray showing diffuse osteopenia, polyarticular osteoarthritis, no fracture or dislocation.? Initial labs essentially unremarkable other than a bicarb level of 16.? Patient was given morphine and Zofran in the ED. ortho was consulted. Ortho recommended?non operative management.? Patient will need sling immobilization in PT OT.? Further rehabilitation at a [place] [facility] DVT prophylaxis Lovenox Type 2 diabetes Hypertension Hyperlipidemia Code status full code Time Spent with Patient Time attestation: Total time spent providing and/or coordinating discharge services: 30 minutes Exam Narrative: General: In no acute distress, well nourished Head: atraumatic, no encephalopathy Eyes: EOMI, PERRLA, sclera clear ENT: moist mucous membranes, nasal passages clear Neck: supple, no JVD, no adenopathy, trachea midline Cardiac: Normal S1 and S2. RRR, No murmur, gallops or friction rubs, peripheral pulses intact. Respiratory: Lungs clear to auscultation, no adventitious lung sounds, currently on RA Gastrointestinal: soft, non-distended, non-tender, normoactive bowel sounds. : voiding without difficulty. Extremities: limited movement to RUE, Moves all other extremities well, no edema, right shoulder and shoulder immobilized Skin: clean, dry, intact. No wounds or lesions. Neuro: Alert and oriented x4, cranial nerves intact, no neuro deficits. Psych: normal mood, normal affect, interactive DS: Data Data Completed and Pending Labs on day of discharge: Labs from last 24 hours 07/20/23 07/20/23 07/20/23 12:23 11:51 08:15 WBC RBC Hgb Hct MCV MCH MCHC RDW Plt Count MPV Immature Gran % (Auto) Neut % (Auto) Lymph % (Auto) [place] % (Auto) Eos % (Auto) Baso % (Auto) Lymph # (Auto) [place] # (Auto) Eos # (Auto) Baso # (Auto) Abs Immat Gran (auto) Absolute Neuts (auto) Absolute Nucleated RBC Nucleated RBC % Sodium 136 L Potassium 4.0 Chloride 107 Carbon Dioxide 24 Anion Gap 5 BUN 20 H Creatinine 0.60 L Estim Creat Clear Calc 73 Estimated GFR > 60 Glucose 121 H POC Capillary Glucose 158 H Calcium 8.8 Total Bilirubin 1.0 AST 26 ALT 12 Alkaline Phosphatase 52 Total Protein 6.0 L Albumin 3.5 SARS-CoV-2 RN
[2023-07-20 13:33] LABS: SARS-CoV-2 RNA PCR Negative (Negative)
[2023-07-20] MEDS: BISACODYL 10 MG SUPPOSITORY RECTAL (13:34)
[2023-07-20 14:00] VITALS: BP 132/87; PULSE 80; RESP 16; TEMP 36.4; O2SAT 100
== END 2023-07-20 15:40 | DRG 563 ==
LOC: ANHED 12:52 → ANH3MEDSUR 14:06
PROVIDERS: Nurse Practitioner Acute Care; Physician Assistant; Admitting Provider Internal Medicine; Emergency Provider Physician Assistant; PCP Family Medicine; Visit Provider Internal Medicine
DX: S42.211A Unspecified displaced fracture of surgical neck of right humerus, initial encounter for closed fracture (principal); W18.30XA Fall on same level, unspecified, initial encounter; I10 Essential (primary) hypertension; E11.9 Type 2 diabetes mellitus without complications; E78.5 Hyperlipidemia, unspecified; M19.90 Unspecified osteoarthritis, unspecified site; K21.9 Gastro-esophageal reflux disease without esophagitis; Z11.52 Encounter for screening for COVID-19; Z79.84 Long term (current) use of oral hypoglycemic drugs; Z90.49 Acquired absence of other specified parts of digestive tract; Z96.641 Presence of right artificial hip joint; Z96.1 Presence of intraocular lens; Z98.42 Cataract extraction status, left eye; Z98.41 Cataract extraction status, right eye
CPT/HCPCS: 23605; 36415; 70450; 71045; 73030; 73060; 73090; 73130; 80048; 80053; 82948; 83036; 83735; 84443; 85025; 85027; 87635; 96374; 96375; 97110; 97161; 97165; 97530; 97535; 99285; A4565; A9270; G0378; J1650; J1815; J2270; J2405

== ENCOUNTER 2024-09-07 15:57 | Emergency (ER) | payer MEDICARE, BC, SELFPAY ==
--- OUTSIDE RECORDS SUMMARY | 2024-09-07 15:59 | XMS_ITS | Continuity of Care Document ---
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 Role Phone Joan Serrano Unavailable Unavailable Procedures Procedure Date Eye Exam & Treatment Dilated Retinal Exam W Interpretation De Eye Exam & Treatment Dilated Retinal Exam W Interpretation Se Advance Directives Directive Yes / No Effective Date File Name No Information Encounters Encounter Description Practice Location Reason(s) For Visit Diagnoses Date Provider Providers Copied on Encounter [facility], [address] [place] [address] [address], [place], [place], [id number], tel:[phone] [facility] No Information 9 Maggie Franco. [address] , [address], [place], [place], [facility], [place]. tel:[phone] [facility], [address] [place] [address] [address], [place], [place], [id number], tel:[phone] [facility] No Information 8 Maggie Franco. [address] , [address], [place], [place], [facility], [place]. tel:[phone] Family History Family Member Type Diagnosis Age At Onset No Information Payers Payer name Insurance type Covered democrat ID Authoriza tion(s) [place] [id number] [place] BL [id number] Social History Type Description Quantity Date Captured Comments Sex Female Smoking Status No Information Chief Complaint And Reason For Visit No Information Reason For Referral Reason For Referral No Information History Of Present Illness Encounter Date Complaint History Of Prese nt Illness No Information Functional Status Date Functional Assessmen t No Information Instructions Date Instruction Additional Infor mation No Information Assessments Type Assessment Date No Information Patient Care Teams Name Effective Dates (start - stop) Status Members No Information
--- OUTSIDE RECORDS SUMMARY | 2024-09-07 15:59 | XMS_ITS | Data Portability ---
Author Organization [place] - [facility] [employer] Main Office Address [address] [place] [address] Care Team Providers Care Force Dispatcher Name Role Phone DOV BALDWIN Primary Care Provider DOV BALDWIN Referring Provider [phone] WILLIAN SMITH Primary Care Provider Assessment Encounter Date Assessment Date Assessment LastModified by Organization Details LastModified Time 07/23/2023 07/23/2023 home blood pressures have been running a bit high-call this week with bp numbers before adjusting ok to hold off on testing blood sugars famotidine bid, eat smaller, more frequent meals [email or web address] Not available 09/03/2023 15:23:19 Plan of Treatment Reminders Order Date Submit Date Provider Last Modified By Organization Details Last Modified Time Details Appointments Follow Up 30 2024 01:00P Delicia Peañ NP Not available Not available Not available Lab vitamin D3, 25-hydrox y, serum 2024 025 [facility] (Lab), [address] [place], [address], 05/23/2024 01:13:19 glycohemo globin, total, blood [email or web address] [place] [address] (Lab), [address] [place], [address], 05/29/2024 08:10:12 CMP, serum or plasma 2024 025 [facility] (Lab), [address] [place], [address], 05/23/2024 01:13:18 lipid panel, serum 2024 025 [facility] (Lab), [address] [place], [address], 05/23/2024 01:13:18 CBC w/ auto diff 2024 025 [facility] (Lab), [address] [place], [address], 05/23/2024 01:13:19 urinalysi s, dipstick 2023 024 [facility] [address], [place], [address], 12/27/2023 16:37:46 urinalysi s complete, reflex culture 2022 023 [facility] (Lab), [address] [place], [address], 01/19/2023 03:24:45 Referral None recorded. Procedures None recorded. Surgeries None recorded. Imaging None recorded. Medication Orders Zithromax Z-Davon 250 mg tablet 2024 025 [facility], [address] [place], [address], 05/22/2024 15:25:06 fluticaso ne propionat e 50 mcg/actua tion nasal spray,jossue pension 2024 025 [facility], [address] [place], [address], 05/22/2024 15:25:04 OneTouch Ultra Test strips 2024 025 [facility], [address] [place], [address], 05/22/2024 15:25:07 pantopraz ole 40 mg tablet,de layed release 2024 025 [facility], [address] [place] [address], [address], 05/22/2024 15:25:10 Cipro 500 mg tablet [email or web address] [place] [address] Pharmacy [address], [address] [place] [address], [address], 05/22/2024 15:06:44 famotidin e 20 mg tablet 2023 024 [facility], [address] [place] [address], [address], 12/27/2023 15:58:46 pantopraz ole 20 mg tablet,de layed release 2023 024 [facility], [address] [place] [address], [address], 12/27/2023 15:58:47 pravastat in 20 mg tablet 2023 024 [facility] [address], [address] [place] [address], [address], 12/27/2023 15:58:48 Calcium with Vitamin D 600 mg-10 mcg (400 unit) tablet [address], [address] [place] [address], [address], 05/22/2024 15:06:28 alendrona te 70 mg tablet 2023 024 [facility], [address] [place] [address], [address], 07/23/2023 16:22:13 nystatin 100,000 unit/gram topical powder [address], [address] [place] [address], [address], 12/27/2023 15:29:43 famotidin e 20 mg tablet 2023 024 [facility], [address] [place], [address], 07/23/2023 16:22:11 ketorolac 30 mg/mL (1 mL) injection solution 2023 024 [email or web address] [id number] Not available 12/27/2023 15:29:33 tretinoin 0.025 % topical cream 2022 023 [email or web address] 77 [facility], [address] [place], [address], 05/22/2024 15:07:11 Patient TargetsNo targets recorded. Patient Instructions Encounter Date Encounter Id Patient Instructions Last Modified By Organization Details Last Modified Time 05/22/2024 [id number] dementia rating scale-2* ANTWON Not available 05/22/2024 16:06:59 multi-dimensiona l health assessment questionnaire* ANTWON Not available 05/22/2024 16:06:53 care plan* ANTWON Not available 05/22 16:06:46 advance directiv es: care instructions [email or web address] Not available 05/22/2024 15:24:57 advance care planning: care instructions [email or web address] Not available 05/22/2024 15:24:56 [place] Advance Directives [email or web address] Not available 05/22/2024 15:24:56 Personalized [facility] Plan and Screening Recommendations Advance Directives - Do you have one? Advance Directives - Do we have your advance directive on file in your health record? Primary Prevention/Interven tion (prevents or decreases the chance of common diseases from occurring) Smoking Risk: Alcohol Misuse Screening: Weight: Physical activity: Nutrition: Fall Risk (screened today): Vaccines Pneumococcal: Influenza: Chronic Disease Risks Stroke: I have no recommendations Active diagnosis, Continue current treatment plan Heart Attack: I have no recommendations Act dave diagnosis, Continue current treatment plan Clogging of the Arteries: I have no recommendations Act dave diagnosis, Continue current treatment plan Diabetes: Active diagnosis, Continue current treatment plan Secondary Prevention/Interven tion (detects treatable diseases before they may cause symptoms, disability, or ) Breast Cancer Screening with mammogram: Cervical/Uterine/Ov danika Cancer Screening: Osteoporosis Screening: Date Screening Last Performed: Colon Cancer Screening: Date Screening Last Performed: Eye Disease Screening: Dementia Risk: Depression Screening: Active diagnosis, Continue current treatment plan [email or web address] Not available 05/22/2024 15:02:26 Reason for Referral None Reported. Results Created Date Observation Date Name Description Value Unit Range Abnormal Flag Note LastModifiedBy Organization Detail LastModifiedTime 01/19/2001/18/2023 URINA LYSIS COMPL ETE/I RIS W/RFX color LIGHT- YELLOW Not Available [facility] (Lab) [address] [place], [address], 01/18/2023 20:24:53 01/19/2001/18/2023 URINA LYSIS COMPL ETE/I RIS W/RFX appear EXTRA TURBID abnormal Not Available [facility] (Lab) [address] [place], [address], 01/18/2023 20:24:53 01/19/2001/18/2023 URINA LYSIS COMPL ETE/I RIS W/RFX specific gravity 1.013 1.001- 1.030 Not Available [facility] (Lab) [address] [place], [address], 01/18/2023 20:24:53 01/19/2001/18/2023 URINA LYSIS COMPL ETE/I RIS W/RFX pH 5.0 pH_un its 5.0-9. 0 Not Available [facility] (Lab) [address] [place], [address], 01/18/2023 20:24:53 01/19/20 23 01/18/2023 URINA LYSIS COMPL ETE/I RIS W/RFX leukocytes 250 gomez/u L negati ve- abnormal Not Available [facility] (Lab) [address] [place], [address], 01/18/2023 20:24:53 01/19/2001/18/2023 URINA LYSIS COMPL ETE/I RIS W/RFX nitrite 2+ negati ve- abnormal Not Available [facility] (Lab) [address] [place], [address], 01/18/2023 20:24:53 01/19/2001/18/2023 URINA LYSIS COMPL ETE/I RIS W/RFX protein NEGATI VE mg/dL negati ve- Not Available [facility] (Lab) [address] [place], [address], 01/18/2023 20:24:53 01/19/2001/18/2023 URINA LYSIS COMPL ETE/I RIS W/RFX glucose >/=100 0 mg/dL normal - abnormal Not Available [facility] (Lab) [address] [place], [address], 01/18/2023 20:24:53 01/19/2001/18/2023 URINA LYSIS COMPL ETE/I RIS W/RFX ketones NEGATI VE mg/dL negati ve- Not Available [facility] (Lab) [address] [place], [address], 01/18/2023 20:24:53 01/19/2001/18/2023 URINA LYSIS COMPL ETE/I RIS W/RFX urobilinogen NORMAL mg/dL normal - Not Available [facility] (Lab) [address] [place], [address], 01/18/2023 20:24:53 01/19/2001/18/2023 URINA LYSIS COMPL ETE/I RIS W/RFX bilirubin NEGATI VE mg/dL negati ve- Not Available [facility] (Lab) [address] [place], [address], 01/18/2023 20:24:53 01/19/20 23 01/18/2023 URINA LYSIS COMPL ETE/I RIS W/RFX blood NEGATI VE mg/dL negati ve- Not Available [facility] (Lab) [address] [place], [address], 01/18/2023 20:24:53 01/19/20 23 01/18/2023 URINA LYSIS COMPL ETE/I RIS W/RFX white blood cells 21-40 /i??h pfi?? 0-8 abnormal Not Available [facility] (Lab) [address] [place], [address], 01/18/2023 20:24:53 01/19/2001/18/2023 URINA LYSIS COMPL ETE/I RIS W/RFX red blood cells 0-4 /i??h pfi?? 0-4 Not Available [facility] (Lab) [address] [place], [address], 01/18/2023 20:24:53 01/19/20 23 01/18/2023 URINA LYSIS COMPL ETE/I RIS W/RFX bacteria PACKED FIELD abnormal Not Available [facility] (Lab) [address] [place], [address], 01/18/2023 20:24:53 01/19/20 23 01/18/2023 URINA LYSIS COMPL ETE/I RIS W/RFX mucous OCCASI ONAL /i??l pfi?? abnormal Not Available [facility] (Lab) [address] [place], [address], 01/18/2023 20:24:53 01/19/20 23 01/18/2023 URINA LYSIS COMPL ETE/I RIS W/RFX squamous epithelial OCCASI ONAL /i??l pfi?? abnormal Not Available [facility] (Lab) [address] [place], [address], 01/18/2023 20:24:53 01/19/20 23 01/18/2023 CULTU RE URINE urc ===== ===== ===== ===== ===== ===== ===== ===== ===== ===== ===== ===== ===== ===== ===== ===== ===== ===== ===== ===== ===== ===== ===== ===== CULTU RE NO.: [id number] Exam Statu s: Final Exam Type: CULTU RE URINE ===== ===== ===== ===== ===== ===== ===== ===== ===== ===== ===== ===== ===== ===== ===== ===== ===== ===== ===== ===== ===== ===== ===== ===== Cultu re Repor t: Organ ism #01 Klebs iella pneum oniae ssp pneum oniae (klep ne) Antib iotic s klepn e Achie vable Achie vable (01) Dosag e Serum Level Urine Level mcg/m l mcg/m l Veronica james <=2 S 021D Ampic illin /Sulb actam <=2 S 021D Cefaz mal <=4 S 021D Cefep eric <=1 S 021D Cefox itin <=4 S 021D Ceftr iaxon e <=1 S 021D Cipro floxa james <=0.2 5 S 021D ESBL NEG - 021D Genta micin <=1 S 021D Levof loxac in <=0.1 2 S 021D Merop enem <=0.2 5 S 021D Piper acill in./T azaba <=4 S 021D Tobra mycin <=1 S 021D Trmet hopri m.Sul fa <=20 S 021D rt - Test Card Code AST-G N 021D o2 - Final Organ ism KLEBS I 021D af - Antib iotic Fami TRIME T 021D af - Antib iotic Famil y Na ap - Pheno type Name WILD 021D ap - Pheno type Name Nitro furan toin <=16 S 021D Not Available [facility] (Lab) [address] [place], [address], 01/21/2023 10:40:48 12/27/19 24 12/27/2023 urina lysis , dipst ick Leukocytes (reference range: negative gomez/ l) Trace Not Available [address] [address], [place], [address], 12/27/2023 15:54:46 12/27/19 24 12/27/2023 urina lysis , dipst ick Nitrite (reference rage: negative mg/dl) positi ve Not Available [address], [place], [address], 12/27/2023 15:54:46 12/27/19 24 12/27/2023 urina lysis , dipst ick Urobilinogen (reference range: 0.2-1 mg/dl) 0.2 Not Available [address], [place], [address], 12/27/2023 15:54:46 12/27/19 24 12/27/2023 urina lysis , dipst ick Protein (reference range: negative mg/dl) Negati ve Not Available [address], [place], [address], 12/27/2023 15:54:46 12/27/19 24 12/27/2023 urina lysis , dipst ick pH (reference range: 5-7) 5.5 Not Available [address] [address], [place], [address], 12/27/2023 15:54:46 12/27/19 24 12/27/2023 urina lysis , dipst ick Blood (reference range: negative Martin/ l) Negati ve Not Available [address], [place], [address], 12/27/2023 15:54:46 12/27/19 24 12/27/2023 urina lysis , dipst ick Specific [place] (reference range: 1.005-1.030) 1.005 Not Available [address], [place], [address], 12/27/2023 15:54:46 12/27/19 24 12/27/2023 urina lysis , dipst ick Ketone (reference range: negative mg/dl) Negati ve Not Available [address], [place], [address], 12/27/2023 15:54:46 12/27/19 24 12/27/2023 urina lysis , dipst ick Bilirubin (reference range: negative mg/dl) Negati ve Not Available [address], [place], [address], 12/27/2023 15:54:46 12/27/19 24 12/27/2023 urina lysis , dipst ick Glucose (reference range: negative mg/dl) 1000 Not Available [address], [place], [address], 12/27/2023 15:54:46 12/27/19 24 12/27/2023 urina lysis , dipst ick Appearance Clear Not Available [address], [place], [address], 12/27/2023 15:54:46 12/27/19 24 12/27/2023 urina lysis , dipst ick Color Dark Yellow Not Available [address], [place], [address], 12/27/2023 15:54:46 05/22/19 25 05/22/2024 urina lysis , dipst ick Leukocytes (reference range: negative gomez/ l) Negati ve Not Available [address], [place], [address], 05/22/2024 17:01:11 05/22/19 25 05/22/2024 urina lysis , dipst ick Nitrite (reference rage: negative mg/dl) negati ve Not Available [address], [place], [address], 05/22/2024 17:01:11 05/22/19 25 05/22/2024 urina lysis , dipst ick Urobilinogen (reference range: 0.2-1 mg/dl) 0.2 Not Available [address], [place], [address], 05/22/2024 17:01:11 05/22/19 25 05/22/2024 urina lysis , dipst ick Protein (reference range: negative mg/dl) Negati ve Not Available [address], [place], [address], 05/22/2024 17:01:11 05/22/19 25 05/22/2024 urina lysis , dipst ick pH (reference range: 5-7) 5.5 Not Available [address], [place], [address], 05/22/2024 17:01:11 05/22/19 25 05/22/2024 urina lysis , dipst ick Blood (reference range: negative Martin/ l) Negati ve Not Available [address], [place], [address], 05/22/2024 17:01:11 05/22/19 25 05/22/2024 urina lysis , dipst ick Specific [place] (reference range: 1.005-1.030) 1.015 Not Available [address], [place], [address], 05/22/2024 17:01:11 05/22/19 25 05/22/2024 urina lysis , dipst ick Ketone (reference range: negative mg/dl) Trace Not Available [address], [place], [address], 05/22/2024 17:01:11 05/22/19 25 05/22/2024 urina lysis , dipst ick Bilirubin (reference range: negative mg/dl) Negati ve Not Available [address], [place], [address], 05/22/2024 17:01:11 05/22/19 25 05/22/2024 urina lysis , dipst ick Glucose (reference range: negative mg/dl) 1000 Not Available [address], [place], [address], 05/22/2024 17:01:11 05/22/19 25 05/22/2024 urina lysis , dipst ick Appearance Clear Not Available [address], [place], [address], 05/22/2024 17:01:11 05/22/19 25 05/22/2024 urina lysis , dipst ick Color Dark Yellow Not Available [address], [place], [address], 05/22/2024 17:01:11 07/15/19 24 07/15/2023 XR, forea rm No observ ation record ed. [address], [place], [address], 07/16/2023 09:05:24 07/15/19 24 07/15/2023 XR, hand No observ ation record ed. [address], [place], [address], 07/16/2023 09:05:39 07/15/19 24 07/15/2023 XR, humer us No observ ation record ed. [address], [place], [address], 07/16/2023 09:06:06 07/15/19 24 07/15/2023 XR, shoul rahul No observ ation record ed. [address], [place], [address], 07/16/2023 09:06:25 07/15/19 24 07/15/2023 XR, chest , 1 view No observ ation record ed. [address], [place], [address], 07/16/2023 09:06:43 07/15/19 24 07/15/2023 CT, brain , w/o contr ast No observ ation record ed. [address], [place], [address], 07/16/2023 09:07:01 07/19/19 24 07/15/2023 XR, forea rm No observ ation record ed. [address], [place], [address], 08/31/2023 15:51:48 07/19/19 24 07/15/2023 XR, hand No observ ation record ed. [address], [place], [address], 08/31/2023 15:52:04 07/19/19 24 07/15/2023 XR, humer us No observ ation record ed. [address], [place], [address], 08/31/2023 15:52:22 07/19/19 24 07/16/2023 XR, shoul rahul No observ ation record ed. [address], [place], [address], 08/31/2023 15:52:37 07/19/19 24 07/15/2023 XR, chest No observ ation record ed. [address], [place], [address], 08/31/2023 15:52:50 07/19/19 24 07/15/2023 CT, brain , w/o contr ast No observ ation record ed. [address], [place], [address], 08/31/2023 15:53:13 Result Notes None recorded. Problems Name Problem SNOMED Code Status Onset Date Resolution Date Notes Provider Name and Address Organization Details Recorded Time Overactive urinary bladder 559033872 Active 2022 Dov Baldwin MD [address], [place], [address] , [employer] 17:10:46 Gastroesophag eal reflux disease without esophagitis 507807280 Active 2022 Dov Baldwin MD [address], [place], [address] , [place] [employer] 17:12:40 Fracture of thoracic spine 580443635 Active 2022 Dov Baldwin MD [address], [address] [address], [place], [address] , [employer] 3 16:19:20 Urinary incontinence 464144107 Active 2022 Dov Baldwin MD [address], [address] [address], [place], [address] , [employer] 3 16:21:06 Acute urinary tract infection 723641768 Active 2022 Dov Baldwin MD [address] [facility], [address] [address], [place], [address] , [employer] 3 10:35:30 Candidal intertrigo 214067712 Active 2023 Dov Baldwin MD [address] [facility], [address], [address] , [employer] 4 16:08:48 Osteoporosis 32273289 Active 2023 Dov Baldwin MD [address] [facility], [address], [address] , [facility] 4 16:11:03 Fracture of humerus 10942997 Active 2023 Dov Baldwin MD [address] [facility], [address] [address], [place], [address] , [employer] [facility] 4 16:23:27 Inadequate intake of vitamin D and/or vitamin D derivative 502864022 Active 2023 LISA Condon [address] [facility], [address], [address] , [employer] 4 15:57:39 Recurrent urinary tract infection 164603248 Active 2023 LISA Jacob [address] [facility], [address], [address] , [employer] [facility] [employer] [facility] 4 15:54:43 Hyperlipidemi a 44996736 Active 2024 LISA Jacob [address], [place], [address] , [employer] 5 15:17:20 Essential hypertension 99383649 Active 2024 LISA Jacob [address], [place], [address] , [employer] 5 15:17:51 Acute sinusitis 09717901 Active 2024 LISA Jacob [address], [place], [address] , [employer] 5 15:23:49 Dysuria 32115968 Active 2021 Not Available [facility] 3 04:52:57 Varicose veins of lower extremity 68160922 Active 2019 Not Available [facility] 3 04:52:57 Diabetes mellitus 48853281 Active 2019 Not Available [facility] 3 04:52:57 Closed fracture of phalanx of foot 56612845 Active Not Available [facility] 3 04:52:57 Subungual hematoma of great toe 135513733 Active 2021 Not Available [facility] 3 04:52:57 Dystrophia unguium 48964610 Active 2020 Not Available [facility] 3 04:52:58 Problem Notes None recorded. Procedures Surgical History Date Name Laterality Status Provider Name and Address Organization Details Recorded Time 05/22/19 25 Medicare Wellness CPT Code, subsequent completed Terrance Herrera RN [place] [employer] 05/22/2024 15:02:27 Appendectomy completed Not Available [facility] 06/14/2022 04:43:09 Imaging Results Imaging Date Name Status LastModified by Organ [facility] Details LastModified Time 07/15/2023 XR, forearm completed [email or web address] [address] [facility] [address], [place], [address], 07/16/2023 09:05:24 07/15/2023 [facility] [address], [place], [address], 07/16/2023 09:05:39 07/15/2023 XR[facility]us [facility] [address], [place], [address], 07/16/2023 09:06:06 07/15/2023 XR, shoulder completed [facility] [address], [place], [address], 07/16/2023 09:06:25 07/15/2023 XR, chest, 1 view completed [address], [place], [address], 07/16/2023 09:06:43 07/15/2023 CT, brain, w/o contrast completed [address], [place], [address], 07/16/2023 09:07:01 07/15/2023 XR, forearm completed [facility] [address], [place], [address], 08/31/2023 15:51:48 07/15/2023 XR, hand completed [facility] [address], [place], [address], 08/31/2023 15:52:04 07/15/2023 XR, humerus completed [facility] [address], [place], [address], 08/31/2023 15:52:22 07/16/2023 XR, [facility] [address], [place], [address], 08/31/2023 15:52:37 07/15/2023 XR, chest [facility] [address], [place], [address], 08/31/2023 15:52:50 07/15/2023 CT, brain, w/o contrast completed [address], [place], [address], 08/31/2023 15:53:13 Procedure Notes None recorded. Medical Equipment None Reported. Allergies No known drug allergies Medications Name Sig Start Date Stop Date Status Note LastModified by Organization Details LastModified Time Santyl 250 unit/gram topical ointment Apply by topical route for 15 days. 12/26 completed Not Available Not Available Not Available cyclobenzap rine 10 mg tablet TAKE 1 TABLET BY MOUTH EVERY 8 HOURS NEEDED FOR MUSCLE SPASM active Not Available Not Available No t Available citalopram 40 mg tablet TAKE 1 TABLET BY MOUTH ONCE DAILY active Not Available Not Available No t Available cetirizine 10 mg tablet Take 1 tablet every day by oral route. 2020 active Not Available Not Available Not Avai lable azithromyci n 250 mg tablet TAKE 2 TABLETS (500 MG) BY ORAL ROUTE ONCE DAILY FOR 1 DAY THEN 1 TABLET (250 MG) BY ORAL ROUTE ONCE DAILY FOR 4 DAYS active Not Available Not Available No t Available ofloxacin 0.3 % eye drops INSTILL 1 DROP INTO SURGICAL EYE THREE TIMES DAILY STARTING 2 DAYS BEFORE SURGERY AND CONTINUIN G FOR 1 WEEK AFTER SURGERY 12/26 completed Not Available Not Available Not Available fluconazole 150 mg tablet 1 po qday x 1 day active Not Available Not Available No t Available benzonatate 200 mg capsule 1 po tid prn cough active Not Available Not Available No t Available cephalexin 250 mg capsule TAKE 2 CAPSULES BY MOUTH TWICE DAILY 05/29 completed Not Available Not Available Not Available hydrocodone 5 mg-acetamin ophen 325 mg tablet TAKE 1 TABLET BY MOUTH EVERY 6 HOURS NEEDED FOR PAIN active Not Available Not Available No t Available tretinoin 0.025 % topical cream APPLY TO THE AFFECTED AREA(S) BY TOPICAL ROUTE ONCE DAILY AT BEDTIME 05/22 completed Not Available Not Available Not Available prednisone 20 mg tablet 2 po qAM with food x 5 days active Not Available Not Available No t Available alendronate 70 mg tablet TAKE 1 TABLET BY MOUTH ONCE A WEEK active Not Available Not Available No t Available amlodipine 5 mg tablet TAKE 1 TABLET BY MOUTH ONCE DAILY IN THE MORNING active Not Available Not Available No t Available ciprofloxac in 500 mg tablet Take 1 tablet every 12 hours by oral route. 05/22 completed Not Available Not Available Not Available sulfamethox azole 800 mg-trimetho prim 160 mg tablet TAKE 1 TABLET BY MOUTH TWICE DAILY 05/22 completed Not Available Not Available Not Available omeprazole 40 mg capsule,del ayed release TAKE 1 CAPSULE BY MOUTH ONCE DAILY 07/05 completed Not Available Not Available Not Available aspirin 81 mg tablet,monica yed release Take 1 tablet every day by oral route. 2020 active Not Available Not Available Not Avai lable ketorolac 30 mg/mL (1 mL) injection solution Inject 1 mL every 6 hours by intramusc ular route. 12/26 completed Not Available Not Available Not Available pantoprazol e 20 mg tablet,monica yed release TAKE 1 TABLET BY MOUTH ONCE DAILY IN THE MORNING active Not Available Not Available No t Available ketorolac 0.5 % eye drops INSTILL1 DROP INTO SURGICAL EYE THREE TIMES DAILY STARTING 2 DAYS BEFORE SURGERY AND CONTINUIN G FOR 2 WEEKS OR UNTIL EMPTY 12/26 completed Not Available Not Available Not Available alprazolam 0.25 mg tablet 06/30 completed Not Available Not Available Not Available famotidine 20 mg tablet TAKE 1 TABLET BY MOUTH TWICE DAILY active Not Available Not Available No t Available prednisolon e acetate 1 % eye drops,suspe nsion 12/26 completed Not Available Not Available Not Available OneTouch Ultra Test strips USE 1 STRIP TO CHECK GLUCOSE ONCE DAILY 2024 active Not Available Not Available Not Avai lable doxycycline monohydrate 100 mg capsule Take 1 capsule twice a day by oral route with meals. active Not Available Not Available No t Available pantoprazol e 40 mg tablet,monica yed release TAKE 1 TABLET BY MOUTH ONCE DAILY active Not Available Not Available No t Available clotrimazol e-betametha sone 1 %-0.05 % topical cream APPLY CREAM TOPICALLY TO AFFECTED AREA TWICE DAILY 05/22 completed Not Available Not Available Not Available glimepiride 4 mg tablet TAKE 1 TABLET BY MOUTH IN THE MORNING AND THEN TAKE 1 TABLET IN THE EVENING active Not Available Not Available No t Available docusate sodium 100 mg capsule TAKE 1 CAPSULE BY MOUTH TWICE DAILY 05/22 completed Not Available Not Available Not Available pravastatin 20 mg tablet TAKE 1 TABLET BY MOUTH ONCE DAILY active Not Available Not Available No t Available mupirocin 2 % topical ointment APPLY A SMALL AMOUNT TO THE AFFECTED AREA BY TOPICAL ROUTE daily 05/22 completed Not Available Not Available Not Available nystatin 100,000 unit/gram topical powder APPLY POWDER TOPICALLY TO AFFECTED AREA TWICE DAILY 12/26 completed Not Available Not Available Not Available azelastine 137 mcg (0.1 %) nasal spray [place] 2 sprays twice a day by intranasa l route. 05/22 completed Not Available Not Available Not Available oxybutynin chloride 5 mg tablet TAKE 1 TABLET BY MOUTH THREE TIMES DAILY 10/05 completed Not Available Not Available Not Available losartan 100 mg tablet TAKE 1 TABLET BY MOUTH ONCE DAILY active Not Available Not Available No t Available fluticasone propionate 50 mcg/actuati on nasal spray,suspe nsion USE 2 SPRAY(S) IN EACH NOSTRIL IN THE MORNING active Not Available Not Available No t Available metformin ER 500 mg tablet,exte nded release 24 hr TAKE 1 TABLET BY MOUTH TWICE DAILY active Not Available Not Available No t Available nitrofurant oin monohydrate /macrocryst als 100 mg capsule TAKE 1 CAPSULE BY MOUTH EVERY 12 HOURS FOR 7 DAYS 07/22 completed Not Available Not Available Not Available Viactiv 1 po bid 05/22 completed Not Available Not Available Not Available Calcium with Vitamin D 600 mg-10 mcg (400 unit) tablet Take 1 tablet every day by oral route for 90 days. 05/22 completed Not Available Not Available Not Available Calmoseptin e 0.44 %-20.6 % topical ointment Apply to affected area daily 05/22 completed Not Available Not Available Not Available Prevnar 13 (PF) 0.5 mL intramuscul ar syringe ADM 0.5ML IM UTD 05/22 completed Not Available Not Available Not Available Jardiance 25 mg tablet Take 1 tablet by mouth once daily 2024 active Not Available Not Available Not Avai lable Shingrix (PF) 50 mcg/0.5 mL intramuscul ar suspension, kit 12/26 completed Not Available Not Available Not Available OneTouch Ultra Blue Test Strip USE 1 STRIP TO CHECK GLUCOSE ONCE DAILY active Not Available Not Available No t Available Fluad 65yr up(PF)45 mcg(15 mcgx3)/0.5 mL intramuscul ar syringe ADM 0.5ML IM UTD 12/26 completed Not Available Not Available Not Available Fluzone High-Dose (PF) 180 mcg/0.5 mL intramuscul ar syringe ADM 0.5ML IM UTD 12/26 completed Not Available Not Available Not Available Fluzone High-Dose Quad (PF) 240 mcg/0.7 mL IM syringe ADM 0.7ML IM UTD 12/26 completed Not Available Not Available Not Available Vitals Date Recorded Body height Body mass index (BMI) Body weight Body temperature Heart rate Oxygen saturation Oxygen saturation in Arterial blood by Pulse oximetry Systolic blood pressure Diastolic blood pressure Provider Name and Address Organization Details Last Updated DateTime 3 175.26 cm 19.6 kg/m2 61745.7 9 g 97.3 [degF] 73 /min 99 % 99 % 114 mm[Hg] 70 mm[Hg] Terrance Herrera RN [facility] [employer] 3 12:48:47 Date Recorded Body height Body temperature Heart rate Oxygen saturation Oxygen saturation in Arterial blood by Pulse oximetry Systolic blood pressure Diastolic blood pressure Provider Name and Address Organization Details Last Updated DateTime 4 175.26 cm 98.3 [degF] 81 /min 99 % 99 % 162 mm[Hg] 66 mm[Hg] Terrance Herrera RN [facility] [employer] [facility] 4 15:58:13 Date Recorded Body height Body mass index (BMI) Body weight Body temperature Heart rate Oxygen saturation Oxygen saturation in Arterial blood by Pulse oximetry Systolic blood pressure Diastolic blood pressure Provider Name and Address Organization Details Last Updated DateTime 4 175.26 cm 20.7 kg/m2 60099.9 3 g 98 [degF] 74 /min 99 % 99 % 126 mm[Hg] 66 mm[Hg] Desire Gonzalez RN [facility] [place] [employer] 4 15:37:43 Date Recorded Body height Body mass index (BMI) Body weight Body temperature Heart rate Oxygen saturation Oxygen saturation in Arterial blood by Pulse oximetry Systolic blood pressure Diastolic blood pressure Provider Name and Address Organization Details Last Updated DateTime 4 175.26 cm 20.4 kg/m2 44976.7 5 g 97.1 [degF] 79 /min 99 % 99 % 120 mm[Hg] 60 mm[Hg] CLEMENTINA Cavazos [facility] [employer] [facility] 4 15:27:09 Date Recorded Body height Body mass index (BMI) Body weight Body temperature Heart rate Oxygen saturation Oxygen saturation in Arterial blood by Pulse oximetry Systolic blood pressure Diastolic blood pressure Provider Name and Address Organization Details Last Updated DateTime 5 175.26 cm 20.5 kg/m2 41730.3 4 g 96.8 [degF] 74 /min 97 % 97 % 110 mm[Hg] 62 mm[Hg] [facility] [place] [employer] [facility] 5 15:05:50 Social History Question Answer Notes LastModified by Organizat ion Details LastModified Time Tobacco Smoking Status Never Smoker Not Available [facility] 06/14/[facility]22 04:24:41 Do You Have An Advance Directive? No [id number] Information not available 06/14/2022 What Is Your Level Of Caffeine Consumption? Moderate [id number] Information not available 06/14/2022 How Much Tobacco Do You Chew? None MIGRATION.[id number] 1705 Information not available 06/14/2022 In The 14 Days Before Symptom Onset, Have You Had Close Contact With A Laboratory-confirm ed COVID-19 While That Case Was Ill? No MIGRATION.[id number] Information not available 06/14/2022 In The 14 Days Before Symptom Onset, Have You Had Close Contact With A Person Who Is Under Investigation For COVID-19 While That Person Was Ill? No MIGRATION.[id number] Information not available 06/14/2022 What Type Of Diet Are You Following? REGULAR [id number].[id number] Information not available 06/14/2022 Which Illicit Or Recreational Drugs Have You Used? No MIGRATION.[id number] 1471 Information not available 06/14/2022 Are There Any Guns Present In Your Home? No MIGRATION.[id number] 6587 Information not available 06/14/2022 What Was The Date Of Your Most Recent Tobacco Screening? 06/30/2020 MIGRATION.[id number] Information not available 06/14/2022 Have You Ever Been Counseled For Unhealthy Alcohol Use? No MIGRATION.[id number] 3895 Information not available 06/14/2022 How Much Tobacco Do You Smoke? No MIGRATION.388645 7520 Information not available 06/14/2022 Do You Use Sunscreen Routinely? Yes MIGRATION.171790 2427 Information not available 06/14/2022 Have You Recently Traveled Abroad? No MIGRATION.874903 8949 Information not available 06/14/2022 Do You Have Any Dietary Restrictions? No MIGRATION.286979 9726 Information not available 06/14/2022 Sex: Unknown Functional Status Question Answer Note LastModified by Organizat ion Details LastModified Time Do you use any illicit or recreational drugs? No MIGRATION.[id number] 9335 Information not available 06/14/2022 Do you or have you ever used any other forms of tobacco or nicotine? No MIGRATION.465763 9705 Information not available 06/14/2022 What is your level of alcohol consumption? Occasional MIGRATION.759494 7410 Information not available 06/14/2022 Do you or have you ever used smokeless tobacco? Never used smokeless tobacco MIGRATION.679331 3932 Information not available 06/14/2022 Do you or have you ever used e-cigarettes or vape? Never used electronic cigarettes MIGRATION.815536 6741 Information not available 06/14/2022 What is your exercise level? None MIGRATION.855952 5209 Information not available 06/14/2022 Mental Status None recorded. Family History Relationship Description Onset Age of this Age Resolved Age Notes LastModified by Organization Details LastModified Time Father Congenital heart disease [id number] Not available 06/14/2022 04:43:14 Mother Hypertensive disorder MIGRATION.[id number] Not available 06/14/2022 04:43:14 Sister Family history of stroke MIGRATION.[id number] Not available 06/14/2022 04:43:15 Medical History Condition Response BLINDNESS N RHEUMATIC FEVER N KIDNEY STONES N BLADDER PROBLEMS N OTHER # 1 N POLIO N LUNG DISEASE/DISORDER N RADIATION / CHEMOTHERAPY N COPD N Other # 2 N BLOOD DISEASES N SURGERY N EAR OR HEARING PROBLEMS N MUMPS N FEMALE PROBLEMS / INFECTIONS N DEPRESSION (INCLUDING POST ) N BOWEL PROBLEMS N STROKE/TIA N THYROID DISEASE N ULCERS N BENIGN PROSTATIC HYPERPLASIA N MEASLES N CERVICALGIA N TB SKIN TEST N MYOCARDIAL INFARCTION N PARAPELGIA N OBESITY N GERD/NAUSEA N ANEURYSM N URINARY/BLADDER/KIDNEY PROBLEMS N INPATIENT PSYCH CARE N CORONARY ARTERY DISEASE (CAD) N MENIERE'S DISEASE N ADDICTION CONCERNS N ENDOMETRIOSIS N USE OF BLOOD THINNERS N SKIN PROBLEMS N EMPHYSEMA N GASTROINTESTINAL DISORDER N MUSCLE,JOINT OR BONE PROBLEMS N GASTROINTESTINAL BLEEDING N BLOOD CLOTS N ASTHMA N CATARACTS N ERECTILE DYSFUNCTION N GI PROBLEMS N CHF N Low Testosterone N NEUROPATHY N INFERTILITY N AIDS/HIV N FRACTURES N VISION/EYE PROBLEMS N LIVER DISEASE N MALE HYPOGONADISM N HYPERTENSION N ANXIETY DISORDER N BLOOD TRANSFUSION N ANEMIA/BLOOD DISORDER N CHRONIC EAR INFECTIONS N BRONCHITIS N TUBERCULOSIS N GLAUCOMA N FOOT PROBLEM N DIVERTICULITIS N SLEEP APNEA N CHICKENPOX N ALLERGIES/HAYFEVER N INFECTIOUS DISEASE N PROSTATE N HEART ARRHYTHMIA N INSOMNIA N HIGH CHOLESTEROL / HYPERLIPIDEMIA N EYE PROBLEMS N HYPERTHYROIDISM N EATING DISORDER N NEUROLOGICAL PROBLEMS N EDEMA N CHRONIC PAIN SYNDROME N HYPOTHYROIDISM N CAROTID BLOCKAGE N CONSTIPATION N BACK / NECK PROBLEMS N HAVE YOU BEEN HOSPITALIZED OR SEEN IN [facility] IN THE PAST YEAR ? N ATHEROSCLEROSIS N BREAST PROBLEMS N DIALYSIS N ECZEMA N FIBROMYALGIA N OSTEOPOROSIS N ARTHRITIS N NO SIGNIFICANT PAST MEDICAL HISTORY N APPENDICITIS N DIABETES, TYPE Y BAD TEETH N HEARTBURN / REFLUX N ADD/ADHD N AUTISM SPECTRUM DISORDER (ASD) N HEPATITIS / LIVER DISEASE N PULMONARY DISEASE N GOUT N SLEEP DISORDER N ALZHEIMER'S DISEASE N PAIN N DEMENTIA N HERPES N SEIZURES/EPILEPSY N HEADACHES/MIGRAINES N VASCULAR DISEASE N PACEMAKER N DIZZINESS N HEART DISEASE/HEART PROBLEMS N KIDNEY DISEASE N SCARLET FEVER N MULTIPLE SCLEROSIS N DEVELOPMENTAL OR BEHAVIORAL DISORDERS N MENTAL DISORDER/ILLNESS N CANCER: SPECIFY N CARDIAC ARRHYTHMIA N PNEUMONIA N ANESTHESIA COMPLICATIONS N ATRIAL FIBRILLATION N PULMONARY EMBOLISM N AUTOIMMUNE DISEASE N Gynecological HistoryNo gynecological history recorded. Obstetrics History GPAL:G 0 P 0 0 0 0 Immunizations Vaccine Type Date Status Note Provider Nam e and Address Organization Details Recorded Time Influenza, high-dose, quadrivalent, PF 01/18/2023 completed Dov Baldwin MD [address] [place] [address] [address], [place], [address], [facility] [employer] 02/11/2023 18:41:48 Influenza, high-dose, quadrivalent, PF 01/02/2022 completed Not Available [employer] 03/01/202 3 05:03:18 Past Encounters Encounter ID Performer Location Encounter Start Date Encounter Closed Date Diagnosis/Indication Diagnosis SNOMED-CT Code Diagnosis ICD10 Code Diagnosis Note [id number] Dov Baldwin MD [facility] [address] [place] [address] 06/30/2020 00:00:00 07/13/2020 10:53:27 [id number] [facility] [place] [address] [place] [address] 09/20/2020 00:00:00 09/23/2020 09:03:00 [id number] Dov Baldwin MD [facility] [address] [place] [address] 09/29/2020 00:00:00 10/12/2020 15:16:18 [id number] Dov Baldwin MD [facility] [address] [place] [address] 11/03/2020 00:00:00 11/03/2020 16:29:35 [id number] [facility] [place] [address] [facility] [address] [place] [address] 03/21/2021 00:00:00 03/22/2021 13:55:28 [id number] MOOK Garg [facility] [address] [place] [address] 08/01/2021 00:00:00 08/01/2021 18:31:45 [id number] [facility] [place] [address] [place] [address] 09/19/2021 00:00:00 09/19/2021 14:38:46 [id number] Dov Baldwin MD [facility] [address] [place] [address] 11/15/2021 00:00:00 12/12/2021 18:37:16 [id number] Dov Baldwin MD [facility] Primary [facility] [place] [address] [place] [address] 01/02/2022 00:00:00 01/02/2022 14:35:43 [id number] Dov Baldwin MD [facility] Primary Care [place] [address] [place] [address] 02/09/2022 00:00:00 02/09/2022 17:26:26 [id number] Dov Baldwin MD [facility] Primary Care [place] [address] [facility] [address] [place] [address] 02/14/2022 00:00:00 03/15/2022 17:55:12 [id number] [facility] [place] [address] [facility] [address] [place] [address] 03/02/2022 00:00:00 03/05/2022 15:07:57 [id number] Dov Baldwin MD [facility] Primary Care [place] [address] [place] [address] 05/29/2022 00:00:00 06/11/2022 17:01:48 [id number] Dov Baldwin MD [facility] Primary Care [facility] [address] [facility] [address] [place] [address] 07/05/2022 16:45:02 07/05/2022 17:31:42 Overactive urinary bladder 891233393 N32.81 refill givenwill have surgery in near future Gastroesop hageal reflux disease without esophagitis 907940642 K21.9 [id number] Dov Baldwin MD [facility] Primary Care [place] [address] [facility] [address] [place] [address] 10/05/2022 15:46:11 10/05/2022 16:30:24 Fracture of thoracic spine 473123040 S22.009A Urinary incontinence 165 195734 R32 [id number] Dov Baldwin MD [facility] Primary Care [address] [address] 01/18/2023 12:43:45 01/18/2023 14:01:28 Urinary incontinence 927785654 R32 Administra tion of influenza vaccine 87965327 Z23 [employer] lentigo 83277882 X 32.XXXS [id number] Dov Baldwin MD [facility] Care [address] [address] 07/23/2023 15:50:42 07/23/2023 16:33:21 Candidal intertrigo 704953773 B37.2 Osteoporosis 15477321 M8 1.0 osteoporos is Gastroesop hageal reflux disease without esophagitis 282021806 K21.9 Fracture of humerus 6630 8002 S42.301A [id number] PANKAJ Condon-Tiffanie [facility] Primary Care [address] [address] 09/25/2023 15:29:22 09/25/2023 16:07:10 Fracture of humerus 99810353 S42.301A -doing HH OT once/week, notes improvemen t-pain is bearable, worsens with exercise-h eat, tylenol/ib uprofen with relief-ROM and strength Inadequate intake of vitamin D and/or vitamin D derivative 330543281 E55.9 [id number] PANKAJ JacobTiffanie [facility] Primary Care [address] [address] 12/27/2023 15:13:52 12/27/2023 16:38:53 Gastroesophageal reflux disease without esophagitis 609961610 K21.9 Will start Pantoprazo le 20mg daily along with Famotidine 20mg daily PRN. Patient will follow up as needed. If symptoms continue to worsen, will consider referral to GI. Recurrent urinary tract infection 225873921 N39.0 Results of dipstick were {{positive * negative }} for UTI.Discus sed taking medication s as prescribed . Antibiotic s should be taken with food to prevent stomach upset.Advi sed to drink clear fluids, can take Tylenol for pain. Patient encouraged to follow up with urologist if symptoms do not improve. Hyperlipidemia 87948871 E78.5 [id number] LISA Jacob [facility] Primary Care [place] [address] [facility] [address] [place] [address] 05/22/2024 14:49:16 05/22/2024 15:42:58 Adult health examination 793846862 Z00.00 Discussed medication compliance and routine follow up.Discuss ed healthy diet and routine exercise.Daphne otoolewed vaccine records and made recommenda tions as needed.Enc ouraged annual eye and dental exams, as well as twice yearly dental cleanings. Will check screening labs as listed below. Screening for disorder 295082486 Z13.9 Gastroesop hageal reflux disease without esophagitis 231585656 K21.9 Diabetes mellitus 814284 09 E11.9 Will check labs as listed below. Hyperlipidemia 46475999 E78.5 Will check labs as listed below. Essential hypertension 48527742 I10 110/62.Shola l check labs as listed below. Osteoporosis 20239777 M8 1.0 Declines DEXA scan Inadequate intake of vitamin D and/or vitamin D derivative 512847835 E55.9 Will check labs as listed below. Acute sinusitis 76911128 J01.90 Will treat as listed below. Patient to follow up as needed. Health Concerns Section Related Observation LastModified by Organization Detai ls LastModified Time None Recorded Concern Status LastModified by Organization Details LastModified Time None Recorded Advance Directives Directive N: Payers Encounter Date Sequence Insurance Name Policy Number Policy George Covered Member ID George Member ID Guarantor Name 01/18/2023 1 [place] Rosalinda Thornton [id number] Rosalinda Thornton 01/18/2023 2 [place] [address] Thornton [id number] Rosalinda Thornton 07/23/2023 1 [place] Rosalinda Thornton [id number] Rosalinda Thornton 07/23/2023 2 [place] [address] Thornton [id number] Rosalinda Banegas Hillary 09/25/2023 1 [place] Rosalinda Rodriguezatt [id number] Rosalinda Banegas Hillary 09/25/2023 2 [place] [address] Rodriguezatt [id number] Rosalinda Banegas Hillary 12/27/2023 1 [place] Rosalinda Rodriguezatt [id number] Rosalinda Banegas Hillary 12/27/2023 2 [place] [address] Rodriguezatt [id number] Rosalinda Banegas Hillary 05/22/2024 1 [place] Rosalinda Rodriguezatt [id number] Rosalinda Rodriguezatt 05/22/2024 2 [place] [address] Rodriguezatt [id number] Rosalinda Banegas Hillary Notes Date Note Type Note Provider Name and Address Organization Details Recorded Time 01/18/2023 text/html having some brow mckenzie color on pad and someurine in toilet is yellowno pain, no dysuria, she is not urinating muchshe d/c her oxybutynin Dov Baldwin MD [address] [address], [place], [address], [employer] 02/11/2023 18:42:21 07/23/2023 text/html On 07/14, she got up out of bed to go to the bathroom. Her walker slipped out from in front of her and she fell to the ground. Currently at [facility] right handed has rash under breastwants strips-can wait for nowwants to start medication for osteoporosishaving reflux Dov Baldwin MD [address] [address], [place], [address], [employer] [facility] [employer] 09/03/2023 15:24:03 09/25/2023 text/html pt is here for f/u LESVIA MelendezP-C [address] [address], [place], [address], [facility] [employer] [facility] 09/25/2023 16:04:03 12/27/2023 text/html Patient is a 83 year old female that presents to the office ambulatory with walker for follow up. Patient reports she is doing well after right humerus fracture, she has been released from home health and occupational therapy. Patient reports she uses a walker because of her previous falls. Patient still has mild pain in right shoulder and decreased ROM but that was expected. Patient saw her urologist in November, was prescribed Bactrim BID for 5 days for UTI. Patient denies having symptoms at that time. Patient denies symptoms now including dysuria, urinary urgency and frequency, flank pain and pelvic pain, vaginal pain and vaginal discharge. Patient denies nausea and fever. Patient reports urine is dark and cloudy but is not odorous. Patient reports she was sick 2-3 weeks ago with congestion, bilateral ear pressure and phlegm. Covid test was negative. Patient used Flonase for symptoms which have improved. Patient complains of worsening GERD over the last few months. Patient takes Famotidine 20mg BID but it does not seem like it is working. Patient was previously on Pantoprazole 40mg without issue, it was discontinued due to fractures. Patient denies chest pain and shortness of breath, nausea vomiting and diarrhea. PANKAJ Jacob-Tiffanie [address] [facility] [address], [place], [address], [facility] [employer] [facility] 12/28/2023 01:03:31 05/22/2024 text/html Patient is a 84 year old female that presents to the office for annual wellness. Patient reports she is doing well overall. Patient reports she might have a UTI-has been taking AZO. Patient denies ever having symptoms of a UTI to include burning with urination, urinary urgency and frequency, malodorous urine, flank pain and pelvic pain. Patient denies nausea and vomiting. Patient denies vaginal pain and vaginal discharge. Patient reports sinus infection for 2 weeks, sinus pressure and pain, ears feel full. Patient denies chest pain and shortness of breath, nausea vomiting and diarrhea. Patient denies fevers, body aches and chills. atux-hsmonaoEOO-tsithej sDEXA-declinesColonosco wo-svyoywvvZkv-nspfzvpe Qmxsw-ubdfurlyXgvd-HDOD vtqzegv-JIDZfmricwvj-VZ D Katie Peña, [employer]-C [address] [facility] [address], [place], [address], [facility] [employer] [facility] 05/26/2024 10:16:57 OBGyn Episode No OBEpisode recorded.
[2024-09-07 16:16] VITALS: BP 117/50; PULSE 52; RESP 14; TEMP 36.4; O2SAT 100
--- OUTSIDE RECORDS SUMMARY | 2024-09-07 16:22 | XMS_ITS | Continuity of Care Document ---
Author Organization [facility] Address [address] [place] [address] [address] [place] [address] Phone Care Team Providers Care Juvenile Officer Name Role Phone Joan Serrano Unavailable Unavailable Procedures Procedure Date Eye Exam & Treatment Dilated Retinal Exam W Interpretation De Eye Exam & Treatment Dilated Retinal Exam W Interpretation Se Advance Directives Directive Yes / No Effective Date File Name No Information Encounters Encounter Description Practice Location Reason(s) For Visit Diagnoses Date Provider Providers Copied on Encounter [facility], [address] [place] [address] [address], [place], [place], [id number], tel:[phone] [facility] No Information 9 Maggie Franco. [address] , [address], [place], [place], [facility], [place]. tel:[phone] [facility], [address] [place] [address] [address], [place], [place], [id number], tel:[phone] [facility] No Information 8 Maggie Franco. [address] , [address], [place], [place], [facility], [place]. tel:[phone] Family History Family Member Type Diagnosis Age At Onset No Information Payers Payer name Insurance type Covered green party ID Authoriza tion(s) [place] [id number] [place] F[place] BL [id number] Social History Type Description Quantity Date Captured [...]
[2024-09-07 16:34] LABS: Basophils Absolute Auto 0.1 K/mm3 (0.0-0.1); Basophils Percent Auto 0.9 % (0.2-1.2); Eosinophils Absolute Auto 0.2 K/mm3 (0-0.3); Eosinophils Percent Auto 2.5 % (0-4.4); Hematocrit 35.7 % (37.0-47.0); Hemoglobin 11.5 g/dL (12.0-15.0); Immature Granulocyte Absolute 0.03 K/mm3 (0.00-0.031); Immature Granulocyte Percent A 0.4 % (0-0.5); Lymphocytes Absolute Auto 1.67 K/mm3 (0.9-3.2); Lymphocytes Percent Auto 24.9 % (18.3-44.2); Mean Corpuscular HGB Conc 32.2 g/dl (32-36); Mean Corpuscular Hemoglobin 28.6 pg (26-34); Mean Corpuscular Volume 88.8 fl (80-100); Mean Platelet Volume 9.8 fl (7.4-10.4); Monocytes Absolute Auto 0.8 K/mm3 (0.1-0.6); Monocytes Percent Auto 11.5 % (2.6-8.5); Neutrophils Percent Auto 59.8 % (45.5-73.1); Platelet Count Result 224 k/mm3 (150-375); Red Blood Count 4.02 M/mm3 (4.2-5.4); White Blood Count 6.7 K/mm3 (4.5-10.0)
--- NOTE | 2024-09-07 16:42 | ED_ITS ---
HPI - General Adult General Chief complaint: Nausea/Vomiting/Diarrhea <Chino Edwards MD - Last Filed: 09/08/24 17:40> Stated complaint: I think I have an infection <Chino Edwards MD - Last Filed: 09/08/24 17:40> Time Seen by Provider: 09/07/24 16:00 <Chino Edwards MD - Last Filed: 09/08/24 17:40> History of Present Illness HPI narrative: 84-year-old female presenting to the emergency department for evaluation for feeling ill. Patient states on Sunday she began feeling poorly. She states that she did sleep the majority of Sunday and then felt fine on Sunday and Sunday but Sunday night she had an episode of explosive diarrhea. Patient states this morning she did not have much to eat but that she does feel improved. At time of evaluation patient denies any nausea vomiting abdominal pain or recent diarrhea. Patient states she does feel tired but denies any other significant complaints. <Chino Edwards MD - Last Filed: 09/08/24 17:40> Related Data Home medications: Home Medications ?Medication ?Instructions ?Recorded ?Confirmed ?Last Taken ?Type cetirizine 10 mg capsule (All Day 10 mg PO DAILY 10/26/20 10/02/23 Unknown History Allergy (cetirizine)) citalopram 40 mg tablet 40 mg PO DAILY 10/26/20 10/02/23 09/01/22 History empagliflozin 25 mg tablet 25 mg PO DAILY 10/26/20 10/02/23 Unknown History (Jardiance) losartan 100 mg tablet 100 mg PO DAILY 10/26/20 10/02/23 Unknown History metformin 500 mg tablet 500 mg PO BID 10/26/20 10/02/23 Unknown History pravastatin 20 mg tablet 20 mg PO HS 10/26/20 10/02/23 Unknown History fluticasone propionate 50 2 spray intranasal DAILY 05/30/21 10/02/23 Unknown History mcg/actuation nasal spray,suspension multivit-iron 18 mg-folic acid 400 1 tablet PO DAILY 05/30/21 10/02/23 Unknown History mcg-calcium 450 mg-minerals tablet (One Daily Women's) aspirin 81 mg chewable tablet 81 mg PO HS 08/24/22 10/02/23 Unknown History (Children's Aspirin) <Chino Edwards MD - Last Filed: 09/08/24 17:40> Allergies/adverse reactions: Allergies Allergy/AdvReac Type Severity Reaction Status Date / Time No Known Allergies Allergy Verified 10/02/23 10:39 <Chino Edwards MD - Last Filed: 09/08/24 17:40> Review of Systems 2 Review of Systems: All systems reviewed & are unremarkable except as noted in HPI and below <Chino Edwards MD - Last Filed: 09/08/24 17:40> [facility] Past Medical History Medical History: Medical History Allergic rhinitis Anxiety Arthritis Basal cell carcinoma (BCC) of [place] Gastroesophageal reflux disease Hyperlipidemia Hypertension Type 2 diabetes mellitus <Chino Edwards MD - Last Filed: 09/08/24 17:40> Surgical History Surgical History: Surgical History History of appendectomy History of cataract extraction with lens replacement History of lumpectomy of left breast With cystic pathology 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 According to the patient her 2 daughters are selectively mute and communicate via writing. Code status: Full code. Smoking status: Never smoker Second hand tobacco smoke exposure: No Alcohol intake: never Drinks per week: 1 Alcohol use details: occasional use Substance use: never Substance use type: does not use Do You Feel Safe in your Home?: Yes Lack of Transportation: No Lack of Food: Never True Current Housing: I Have Housing Concerned About Future Housing: No Difficulty Paying Gas/Electric Bills: No Difficulty Paying for Meds: No Currently Unemployed: No Education: High School Diploma/GED Difficulty w/ Childcare or Family Care: No Living arrangements: with family Additional living arrangements comments: . Lives alone but her 2 daughters spend the majority of the time with her. Occupation/Education: retired Additional occupation/education comments: [employer]. Spiritual care concerns: No <Chino Edwards MD - Last Filed: 09/08/24 17:40> Exam 2 Narrative: APPEARANCE: Well appearing, no pain, no distress, well-nourished. HEAD: normocephalic, atraumatic. EYES: PERRLA/EOMI, conjunctivae clear. NOSE: Normal no drainage EARS:TMS clear with good light reflex. THROAT: Pharynx clear, no exudate. NECK: Supple. No adenopathy, no masses. RESPIRATORY: Airway patent, respirations nonlabored. Clear to auscultation bilaterally, no rales, rhonchi, wheezing. CARDIOVASCULAR: Regular rate and rhythm without murmurs rubs or gallops. ABDOMINAL: Soft, nontender, nondistended, normal bowel sounds MUSCULOSKELETAL: Moves all extremities. Strength/ROM intact, No edema, No calf tenderness. NEURO: Alert. Cranial nerves II through XII intact. Good gait. Good coordination SKIN: Warm, dry. Normal Color <Chino Edwards MD - Last Filed: 09/08/24 17:40> Course Vital Signs Vital signs: Vital Signs Temperature 97.6 F 09/07/24 16:16 Pulse Rate 52 L 09/07/24 16:16 Respiratory Rate 14 09/07/24 16:16 Blood Pressure 117/50 L 09/07/24 16:16 Pulse Oximetry 100 09/07/24 16:16 Oxygen Delivery Room Air 09/07/24 16:16 Temperature 97.8 F 09/07/24 18:33 Pulse Rate 63 09/07/24 21:37 Respiratory Rate 19 09/07/24 21:37 Blood Pressure 128/73 09/07/24 21:37 Pulse Oximetry 99 09/07/24 21:37 Oxygen Delivery Room Air 09/07/24 16:16 <Chino Edwards MD - Last Filed: 09/08/24 17:40> Vital Signs Temperature 97.6 F 09/07/24 16:16 Pulse Rate 52 L 09/07/24 16:16 Respiratory Rate 14 09/07/24 16:16 Blood Pressure 117/50 L 09/07/24 16:16 Pulse Oximetry 100 09/07/24 16:16 Oxygen Delivery Room Air 09/07/24 16:16 Temperature 97.8 F 09/07/24 18:33 Pulse Rate 63 09/07/24 21:37 Respiratory Rate 19 09/07/24 21:37 Blood Pressure 128/73 09/07/24 21:37 Pulse Oximetry 99 09/07/24 21:37 Oxygen Delivery Room Air 09/07/24 16:16 <Renetta Vieira APRN - Last Filed: 09/07/24 19:36> Medical Decision Making MDM Narrative Medical decision making narrative: 1929-Patient's urinalysis indicates a slight urinary tract infection. She will be treated with a 5 day course of ciprofloxacin and she will receive the 1st dose here in the ER. Patient verbalized understanding and is in agreement with plan for discharge. < Renetta Vieira APRN - Last Filed: 09/07/24 19:36> Differential Diagnosis Differential Diagnosis: Urinary tract infection, diarrhea, dehydration, gastroenteritis <Renetta Vieira APRN - Last Filed: 09/07/24 19:36> Vital Signs Vital Signs: Vital Signs Temperature 97.6 F 09/07/24 16:16 Pulse Rate 52 L 09/07/24 16:16 Respiratory Rate 14 09/07/24 16:16 Blood Pressure 117/50 L 09/07/24 16:16 Pulse Oximetry 100 09/07/24 16:16 Oxygen Delivery Room Air 09/07/24 16:16 Temperature 97.8 F 09/07/24 18:33 Pulse Rate 63 09/07/24 21:37 Respiratory Rate 19 09/07/24 21:37 Blood Pressure 128/73 09/07/24 21:37 Pulse Oximetry 99 09/07/24 21:37 Oxygen Delivery Room Air 09/07/24 16:16 <Chino Edwards MD - Last Filed: 09/08/24 17:40> Vital Signs Temperature 97.6 F 09/07/24 16:16 Pulse Rate 52 L 09/07/24 16:16 Respiratory Rate 14 09/07/24 16:16 Blood Pressure 117/50 L 09/07/24 16:16 Pulse Oximetry 100 09/07/24 16:16 Oxygen Delivery Room Air 09/07/24 16:16 Temperature 97.8 F 09/07/24 18:33 Pulse Rate 63 09/07/24 21:37 Respiratory Rate 19 09/07/24 21:37 Blood Pressure 128/73 09/07/24 21:37 Pulse Oximetry 99 09/07/24 21:37 Oxygen Delivery Room Air 09/07/24 16:16 <Renetta Vieira APRN - Last Filed: 09/07/24 19:36> Lab Data Lab results reviewed: Yes I reviewed the patient's lab results. <Renetta Vieira APRN - Last Filed: 09/07/24 19:36> Result diagrams: 09/07/24 16:28 09/07/24 16:28 <Chino Edwards MD - Last Filed: 09/08/24 17:40> Labs: Lab Results 09/07/24 09/07/24 Range/Units 16:28 18:09 WBC 6.7 (4.5-10.0) K/mm3 RBC 4.02 L (4.2-5.4) M/mm3 Hgb 11.5 L (12.0-15.0) g/dL Hct 35.7 L (37.0-47.0) % MCV 88.8 (80-100) fl MCH 28.6 (26-34) pg MCHC 32.2 (32-36) g/dl RDW 14.0 (11.5-14.5) % Plt Count 224 (150-375) k/mm3 MPV 9.8 (7.4-10.4) fl Immature Gran % (Auto) 0.4 (0-0.5) % Neut % (Auto) 59.8 (45.5-73.1) % Lymph % (Auto) 24.9 (18.3-44.2) % [place] % (Auto) 11.5 H (2.6-8.5) % Eos % (Auto) 2.5 (0-4.4) % Baso % (Auto) 0.9 (0.2-1.2) % Lymph # (Auto) 1.67 (0.9-3.2) K/mm3 [place] # (Auto) 0.8 H (0.1-0.6) K/mm3 Eos # (Auto) 0.2 (0-0.3) K/mm3 Baso # (Auto) 0.1 (0.0-0.1) K/mm3 Abs Immat Gran (auto) 0.03 (0.00-0.031) K/mm3 Absolute Neuts (auto) 4.0 (1.3-6.7) K/mm3 Absolute Nucleated RBC 0.000 (0.0-0.012) K/mm3 Nucleated RBC % 0.0 (0.0-0.2) % Sodium 136 L (137-145) mmol/L Potassium 4.0 (3.4-5.0) mmol/L Chloride 109 H (98-107) mmol/L Carbon Dioxide 18 L (22-30) mmol/L Anion Gap 9 (4-12) mmol/L BUN 16 (7-17) mg/dL Creatinine 0.79 (0.7-1.0) mg/dL Estim Creat Clear Calc 44 ml/min Estimated GFR > 60 (59 - ) Glucose 94 (65-110) mg/dL Lactic Acid 1.2 (0.7-2.0) mmol/L Calcium 8.7 (8.4-10.2) mg/dL Total Bilirubin 1.3 (0.2-1.3) mg/dL AST 34 (14-36) U/L ALT 20 (6-35) U/L Alkaline Phosphatase 55 (38-126) U/L Total Protein 7.0 (6.3-8.2) g/dL Albumin 4.2 (3.5-5.1) g/dL Lipase 104 (23-300) U/L Urine Color Yellow (Yellow) Urine Appearance Clear (Clear) Urine pH 5.5 (5.0-9.0) Ur Specific [place] 1.011 (1.001-1.035) Urine Protein Negative (Negative) mg/dL Urine Glucose (UA) 3+ H (Negative) mg/dL Urine Ketones Negative (Negative) mg/dL Ur Blood (Man) Negative (Negative) Urine Nitrate Negative (Negative) Urine Bilirubin Negative (Negative) Urine Urobilinogen 0.2 (<2.0) mg/dL Add Ur Microanalysis Reviewed Leukocyte Esterase Rfl Trace H (Negative) CRISSY/UL Urine RBC 0-2 (0-2) /hpf Urine WBC 6-10 H (0-3) /hpf Ur Squamous Epith Cells None seen (Few) /hpf Urine Bacteria None seen /hpf Urine Casts 0-2 <Chino Edwards MD - Last Filed: 09/08/24 17:40> Lab Results 09/07/24 09/07/24 Range/Units 16:28 18:09 WBC 6.7 (4.5-10.0) K/mm3 RBC 4.02 L (4.2-5.4) M/mm3 Hgb 11.5 L (12.0-15.0) g/dL Hct 35.7 L (37.0-47.0) % MCV 88.8 (80-100) fl MCH 28.6 (26-34) pg MCHC 32.2 (32-36) g/dl RDW 14.0 (11.5-14.5) % Plt Count 224 (150-375) k/mm3 MPV 9.8 (7.4-10.4) fl Immature Gran % (Auto) 0.4 (0-0.5) % Neut % (Auto) 59.8 (45.5-73.1) % Lymph % (Auto) 24.9 (18.3-44.2) % [place] % (Auto) 11.5 H (2.6-8.5) % Eos % (Auto) 2.5 (0-4.4) % Baso % (Auto) 0.9 (0.2-1.2) % Lymph # (Auto) 1.67 (0.9-3.2) K/mm3 [place] # (Auto) 0.8 H (0.1-0.6) K/mm3 Eos # (Auto) 0.2 (0-0.3) K/mm3 Baso # (Auto) 0.1 (0.0-0.1) K/mm3 Abs Immat Gran (auto) 0.03 (0.00-0.031) K/mm3 Absolute Neuts (auto) 4.0 (1.3-6.7) K/mm3 Absolute Nucleated RBC 0.000 (0.0-0.012) K/mm3 Nucleated RBC % 0.0 (0.0-0.2) % Sodium 136 L (137-145) mmol/L Potassium 4.0 (3.4-5.0) mmol/L Chloride 109 H (98-107) mmol/L Carbon Dioxide 18 L (22-30) mmol/L Anion Gap 9 (4-12) mmol/L BUN 16 (7-17) mg/dL Creatinine 0.79 (0.7-1.0) mg/dL Estim Creat Clear Calc 44 ml/min Estimated GFR > 60 (59 - ) Glucose 94 (65-110) mg/dL Lactic Acid 1.2 (0.7-2.0) mmol/L Calcium 8.7 (8.4-10.2) mg/dL Total Bilirubin 1.3 (0.2-1.3) mg/dL AST 34 (14-36) U/L ALT 20 (6-35) U/L Alkaline Phosphatase 55 (38-126) U/L Total Protein 7.0 (6.3-8.2) g/dL Albumin 4.2 (3.5-5.1) g/dL Lipase 104 (23-300) U/L Urine Color Yellow (Yellow) Urine Appearance Clear (Clear) Urine pH 5.5 (5.0-9.0) Ur Specific [place] 1.011 (1.001-1.035) Urine Protein Negative (Negative) mg/dL Urine Glucose (UA) 3+ H (Negative) mg/dL Urine Ketones Negative (Negative) mg/dL Ur Blood (Man) Negative (Negative) Urine Nitrate Negative (Negative) Urine Bilirubin Negative (Negative) Urine Urobilinogen 0.2 (<2.0) mg/dL Add Ur Microanalysis Reviewed Leukocyte Esterase Rfl Trace H (Negative) CRISSY/UL Urine RBC 0-2 (0-2) /hpf Urine WBC 6-10 H (0-3) /hpf Ur Squamous Epith Cells None seen (Few) /hpf Urine Bacteria None seen /hpf Urine Casts 0-2 <Renetta Vieira APRN - Last Filed: 09/07/24 19:36> Discharge Plan Discharge Clinical Impression: Diarrhea, Urinary tract infection <Chino Edwards MD - Last Filed: 09/08/24 17:40> Patient Disposition: Home <Chino Edwards MD - Last Filed: 09/08/24 17:40> Condition: Stable <Chino Edwards MD - Last Filed: 09/08/24 17:40> Instructions: Antibiotic Form, Clear Liquid Diet (ED), Acute Diarrhea (ED) <Chino Edwards MD - Last Filed: 09/08/24 17:40> Additional Instructions: Clear liquid diet for the next 1-3 days until diarrhea improves. Have close follow-up with your primary care physician. If you have any worsening symptoms then please call or return to the emergency department. <Chino Edwards MD - Last Filed: 09/08/24 17:40> Patient Language: Prydeinig <Chino Edwards MD - Last Filed: 09/08/24 17:40> Prescriptions: New ciprofloxacin HCl [Cipro] 500 mg tablet 500 mg PO Q12H Qty: 10 0RF No Action metformin 500 mg tablet 500 mg PO BID Jardiance 25 mg tablet 25 mg PO DAILY losartan 100 mg tablet 100 mg PO DAILY citalopram 40 mg tablet 40 mg PO DAILY pravastatin 20 mg tablet 20 mg PO HS All Day Allergy (cetirizine) 10 mg capsule 10 mg PO DAILY hydrocodone-acetaminophen 5-325 mg tablet 1 tablet PO Q8H PRN (Reason: pain) Qty: 20 0RF fluticasone propionate 50 mcg/actuation spray,suspension 2 spray INTRANASAL DAILY One Daily Women's 18 mg iron-400 mcg-450 mg Ca Tablet 1 tablet PO DAILY aspirin [Children's Aspirin] 81 mg tablet,chewable 81 mg PO HS calcium carbonate-vitamin D3 [Oyster Shell Calcium-Vit D3] 500 mg-5 mcg (200 unit) Tablet 500 mg PO BIDWM Qty: 20 0RF <Chino Edwards MD - Last Filed: 09/08/24 17:40> Follow-up/Referrals: Casey,Katie Herr NP [Primary Care Provider] - <Chino Edwards MD - Last Filed: 09/08/24 17:40> Time of Disposition: 19:36 <Chino Edwards MD - Last Filed: 09/08/24 17:40> 19:36 <Renetta Vieira APRN - Last Filed: 09/07/24 19:36>
[2024-09-07 16:44] LABS: Lactic Acid Reflex 1.2 mmol/L (0.7-2.0)
[2024-09-07 16:45] LABS: Alanine Aminotransferase 20 U/L (6-35); Albumin Level 4.2 g/dL (3.5-5.1); Alkaline Phosphatase 55 U/L (38-126); Anion Gap 9 mmol/L (4-12); Aspartate Amino Transferase 34 U/L (14-36); Bilirubin,Total 1.3 mg/dL (0.2-1.3); Blood Urea Nitrogen 16 mg/dL (7-17); Calcium 8.7 mg/dL (8.4-10.2); Carbon Dioxide 18 mmol/L (22-30); Chloride 109 mmol/L (98-107); Estimated CRCL calculation 44 ml/min; Estimated Glomerular Filt Rate > 60; Glucose 94 mg/dL (65-110); Lipase 104 U/L (23-300); Sodium 136 mmol/L (137-145)
[2024-09-07] MEDS: LACTATED RINGERS 1,000 ML 999 ML IV CONT (17:11)
[2024-09-07 17:30] VITALS: BP 120/68; PULSE 56; RESP 16; TEMP 36.6; O2SAT 100
[2024-09-07 18:33] VITALS: BP 124/68; PULSE 60; RESP 16; TEMP 36.6; O2SAT 100
[2024-09-07 19:23] LABS: Add Urine Microscopic? YES; Appearance Urine Clear (Clear); Bacteria Urine None Seen /hpf; Bilirubin Urine Negative (Negative); Blood Urine Negative (Negative); Color Urine Yellow (Yellow); Glucose Urine UA 3+ mg/dL (Negative); Ketones Urine Negative (Negative); Leukocyte Esterase Ur Trace LEU/UL (Negative); Need Manual Microscopic Reviewed; Nitrate Urine Negative (Negative); Non Pathogenic Casts 0-2; Protein Urine Negative (Negative); RBC Urine 0-2 /hpf (0-2); Specific Grav Ur 1.011 (1.001-1.035); Squamous Epithelial Cell Urine None Seen /hpf (Few); Urobilinogen Urine 0.2 mg/dL (<2.0); pH Urine 5.5 (5.0-9.0)
[2024-09-07] MEDS: CIPROFLOXACIN 500 MG TAB PO (19:43)
[2024-09-07 20:02] VITALS: BP 128/73; PULSE 63; RESP 19; O2SAT 99
[2024-09-07 21:37] VITALS: BP 128/73; PULSE 63; RESP 19; O2SAT 99
== END 2024-09-07 20:02 | disposition home or self-care (01) ==
PROVIDERS: Emergency Provider Emergency Medicine; PCP Nurse Practitioner Family
DX: R19.7 Diarrhea, unspecified (principal); N39.0 Urinary tract infection, site not specified; F41.9 Anxiety disorder, unspecified; M19.90 Unspecified osteoarthritis, unspecified site; K21.9 Gastro-esophageal reflux disease without esophagitis; E78.5 Hyperlipidemia, unspecified; I10 Essential (primary) hypertension; E11.9 Type 2 diabetes mellitus without complications; Z79.84 Long term (current) use of oral hypoglycemic drugs
CPT/HCPCS: 36415; 80053; 81001; 83605; 83690; 85025; 87086; 96360; 99283; A9270; J7120